=== PATIENT | female | born 1940 | race American Indian/Alaskan Native ===

== ENCOUNTER 2017-10-07 11:03 | Inpatient (IN) | payer MEDICARE ==
[2017-10-07] MEDS ORDERED: D50W (25GM) Syringe IV ONE ×2 (11:18)
[2017-10-07] MEDS ORDERED: NACL 0.9% 500 ML 500 ML IV ONE (12:39)
[2017-10-07 13:28] LABS: INR 3.49 (0.87-1.13)
[2017-10-07 13:29] LABS: Partial Thromboplastin Time 51.7 Sec. (24.2-36.6)
[2017-10-07] MEDS ORDERED: TYLENOL PO ONE (13:32)
[2017-10-07] MEDS ORDERED: LASIX IV ONE (13:32)
[2017-10-07] MEDS ORDERED: NACL 0.9% 1000 ML 1,000 ML ONE (13:44)
[2017-10-07 13:47] LABS: Hematocrit 35.7 % (30.3-42.9); Hemoglobin 11.3 gm/dl (10.1-14.3); Mean Corpuscular HGB Conc 32 % (30-34); Mean Corpuscular Hemoglobin 28 pg (28-32); Mean Corpuscular Volume 88 fl (79-97); Red Blood Count 4.06 M/mm3 (3.65-5.03); Red Cell Distribution Width 16.4 % (13.2-15.2)
[2017-10-07 13:48] LABS: Mean Platelet Volume 7.5 fl (6-12); Platelet Count 164 K/mm3 (140-440)
[2017-10-07 13:57] LABS: Albumin 2.1 g/dL (3.9-5); Calcium 9.5 mg/dL (8.4-10.2)
[2017-10-07 14:08] LABS: Chol/HDL Ratio 2.75 %
[2017-10-07] MEDS ORDERED: LEVAQUIN 500MG/100ML 500 MG/100 ML BAG IV ONE (14:31)
--- NOTE | 2017-10-07 14:32 | Emergency Department Report ---
HPI - General Chief Complaint: Pain General Time Seen by Provider: 10/07/17 12:36 - HPI HPI: The patient is a 77-year-old female with a history of congestive heart failure who presents for evaluation of dyspnea and right shoulder pain. The patient reports dyspnea for the past one day, constant, moderate severity, exacerbated with activity, improved with sitting up. She has secondary complaint of Right shoulder pain for the past 2-3 days, achy in quality, severe, exacerbated with movement of the right arm. She denies trauma to the right shoulder. The patient also denies fever, chest pain, syncope, hemoptysis, unilateral leg swelling, oral contraceptive use, recent immobilization, history of DVT or PE, hx of recent cancer. ED Past Medical Hx - Past Medical History Hx Hypertension: Yes Hx Congestive Heart Failure: Yes Hx Diabetes: Yes Hx GERD: Yes Hx Renal Disease: Yes (acute kidney failure) Hx Asthma: No Hx COPD: No Hx HIV: No Additional medical history: brain tumor (removed 1997). hyperlipidemia. Atrial fibrillation. cardiomyopathy - Surgical History Hx Pacemaker: No (AICD) Hx Internal Defibrillator: Yes Additional Surgical History: AICD (placed 2006, changed 2011) - Social History Smoking Status: Never Smoker Substance Use Type: None - Medications Home Medications: Home Medications Medication Instructions Recorded Confirmed Last Taken Type AtorvaSTATin [Lipitor] 20 mg PO HS tablet 07/01/15 10/07/17 Unknown Rx Furosemide [Lasix TAB] 40 mg PO QDAY tablet 07/01/15 10/07/17 Unknown Rx Spironolactone [Aldactone] 12.5 mg PO QDAY tablet 07/01/15 10/07/17 Unknown Rx amLODIPine [Norvasc] 10 mg PO DAILY tablet 07/01/15 10/07/17 Unknown Rx Amiodarone [Cordarone 200 MG TAB] 200 mg PO DAILY #30 tablet 02/24/16 10/07/17 Unknown Rx Aspirin EC [Aspirin Enteric Coated 325 mg PO QDAY #30 tablet 02/24/16 10/07/17 Unknown Rx TAB] Carvedilol [Coreg] 6.25 mg PO BID #60 tablet 02/24/16 10/07/17 Unknown Rx Insulin Aspart Prot/Aspart(Nf) 6 units SUB-Q BIDDIAB #1 vial 02/24/16 10/07/17 Unknown Rx [NovoLOG Mix 70/30 VIAL] Insulin Aspart [NovoLOG Flexpen] 0 units SQ ACHS 03/09/16 10/07/17 Unknown History Magnesium Oxide [Mag-Ox] 400 mg PO QDAY #10 tablet 03/10/16 10/07/17 Unknown Rx Phosphorus #1 [K-Phos Neutral] 250 mg PO QID #40 tablet 03/10/16 10/07/17 Unknown Rx Digoxin [Lanoxin] 0.125 mg PO DAILY 10/07/17 10/07/17 Unknown History Omeprazole 40 mg PO DAILY 10/07/17 10/07/17 Unknown History Warfarin [Coumadin] 3 mg PO QDAY 10/07/17 10/07/17 Unknown History traMADol [Ultram 50 MG tab] 50 mg PO BID 10/07/17 10/07/17 Unknown History ED Review of Systems ROS: Stated complaint: SHOULDER AND LEG PAIN Other details as noted in HPI Constitutional: denies: fever ENT: denies: throat or neck pain Respiratory: denies: cough reports shortness of breath Cardiovascular: denies: chest pain Endocrine: denies unexplained weight loss or gain Gastrointestinal: denies: abdominal pain, nausea Genitourinary: denies: dysuria Musculoskeletal: denies: leg swelling Skin: denies: rash Neurological: denies: headache Hematological/Lymphatic: denies: easy bleeding or easy bruising Psych: denies sadness or hopelessness Physical Exam - Physical Exam Vital Signs: Vital Signs 10/07/17 10/07/17 10/07/17 11:46 12:00 12:05 Temperature 97.7 F Pulse Rate 60 57 L 55 L Respiratory 20 23 16 Rate Blood Pressure 82/31 83/46 82/31 Blood Pressure 82/31 [Left] O2 Sat by Pulse 94 Oximetry 10/07/17 10/07/17 10/07/17 12:15 12:30 12:46 Temperature Pulse Rate 62 58 L 60 Respiratory 20 22 22 Rate Blood Pressure 93/42 94/45 88/43 Blood Pressure [Left] O2 Sat by Pulse Oximetry 10/07/17 10/07/17 10/07/17 13:00 13:16 13:30 Temperature Pulse Rate 59 L 54 L 66 Respiratory 20 22 24 Rate Blood Pressure 88/43 71/26 142/116 Blood Pressure [Left] O2 Sat by Pulse Oximetry 10/07/17 10/07/17 10/07/17 13:46 14:00 14:08 Temperature Pulse Rate 62 59 L Respiratory 20 23 16 Rate Blood Pressure 81/36 89/46 Blood Pressure [Left] O2 Sat by Pulse Oximetry 10/07/17 14:15 Temperature Pulse Rate 58 L Respiratory 22 Rate Blood Pressure 96/37 Blood Pressure [Left] O2 Sat by Pulse Oximetry Physical Exam: General: well-nourished, well-developed, no acute distress Head: Normocephalic, atraumatic Eyes: normal sclera ENT: Mucous membranes are pink and moist Neck: trachea midline, neck supple, No neck stiffness, no cervical adenopathy Respiratory: Diminished breath sounds and crackles present to palpation along feels Cardio: S1 and S2 present, no murmurs, rubs, gallops, capillary refill is brisk Abdomen: Normoactive bowel sounds, soft abdomen, no rigidity, no guarding or rebound tenderness Chest WALL/Back: No tenderness to palpation of the chest wall, no CVA tenderness with percussion Musc: 1+ pitting edema in the bilateral lower legs present, Right shoulder anterior joint line tenderness to palpation present, no shoulder swelling, redness, fluctuance, or crepitus, sensation, motor function, and pulses intact in the right arm and hand distal to her shoulder Skin: No rash Neuro: no facial drooping, normal speech Psych: Normal affect ED Course Vital Signs 10/07/17 10/07/17 10/07/17 11:46 12:00 12:05 Temperature 97.7 F Pulse Rate 60 57 L 55 L Respiratory 20 23 16 Rate Blood Pressure 82/31 83/46 82/31 Blood Pressure 82/31 [Left] O2 Sat by Pulse 94 Oximetry 10/07/17 10/07/17 10/07/17 12:15 12:30 12:46 Temperature Pulse Rate 62 58 L 60 Respiratory 20 22 22 Rate Blood Pressure 93/42 94/45 88/43 Blood Pressure [Left] O2 Sat by Pulse Oximetry 10/07/17 10/07/17 10/07/17 13:00 13:16 13:30 Temperature Pulse Rate 59 L 54 L 66 Respiratory 20 22 24 Rate Blood Pressure 88/43 71/26 142/116 Blood Pressure [Left] O2 Sat by Pulse Oximetry 10/07/17 10/07/17 10/07/17 13:46 14:00 14:08 Temperature Pulse Rate 62 59 L Respiratory 20 23 16 Rate Blood Pressure 81/36 89/46 Blood Pressure [Left] O2 Sat by Pulse Oximetry 10/07/17 14:15 Temperature Pulse Rate 58 L Respiratory 22 Rate Blood Pressure 96/37 Blood Pressure [Left] O2 Sat by Pulse Oximetry ED Medical Decision Making - Lab Data Result diagrams: 10/07/17 13:03 10/07/17 13:03 - Medical Decision Making The patient was seen and examined by myself. The patient is placed on a surveillance system monitor and continuous pulse ox. On initial evaluation, the patient was found to be in no distress. Evaluation orders were placed. The patient is given Tylenol for her pain. X-ray of the chest reveals cardiomegaly, pulmonary vascular congestion, and right linear atelectasis versus infiltrate. X-ray of the right shoulder is unremarkable. Lab results revealed mild leukocytosis, WBC 11, and elevated BNP 91716, and elevated creatinine >2. Labs also revealed elevated troponin level, although and patient baseline compared to troponin levels on multiple previous ED evaluations. The patient is given Levaquin for treatment of potential pneumonia. An ABG is performed and reveals that the patient's PaO2 60. The on-call hospitalist service was contacted. They agreed to admit the patient for further treatment and close monitoring. The ED admit order was placed. The patient was admitted in guarded condition. Critical care attestation.: If time is entered above; I have spent that time in minutes in the direct care of this critically ill patient, excluding procedure time. ED Disposition Clinical Impression: Acute pain of right shoulder, SUNDAR (acute kidney injury), Elevated troponin, Hypoxemia Pneumonia Qualifiers: Pneumonia type: due to unspecified organism Laterality: right Lung location: lower lobe of lung Qualified Code(s): J18.1 - Lobar pneumonia, unspecified organism Acute CHF (congestive heart failure) Qualifiers: Heart failure type: systolic Qualified Code(s): I50.21 - Acute systolic ( congestive) heart failure Hypotension Qualifiers: Hypotension type: unspecified hypotension type Qualified Code(s): I95.9 - Hypotension, unspecified Disposition: OP ADMIT IP TO THIS HOSP Is pt being admited?: Yes Does the pt Need Aspirin: Yes Condition: Serious Instructions: Bacterial Pneumonia (ED) Referrals: ARUN HAMMOND MD [Primary Care Provider] - 3-5 Days Time of Disposition: :32
[2017-10-07] MEDS ORDERED: BABY ASPIRIN PO ONE (14:35)
[2017-10-07 14:50] LABS: Bacteria,Urine 4+ /HPF (Negative); Bilirubin,Urine NEG (Negative); Blood,Urine NEG (Negative); Color,Urine Amber (Yellow); Mucus,Urine 1+ /HPF
[2017-10-07 15:24] LABS: Band Neutrophils # (Manual) 1.1 K/mm3; Basophils % (Manual) 0 % (0.0-1.8); Eosinophils % (Manual) 0 % (0.0-4.3); Total Cells Counted 100
[2017-10-07 15:25] LABS: Anisocytosis 1+; Ovalocytes 1+; Poikilocytosis 1+
[2017-10-07 15:26] LABS: Dohle Bodies 1+; Toxic Granulation 1+
--- NOTE | 2017-10-07 15:31 | XRay Report ---
FINAL REPORT EXAM: XR SHOULDER 2+V RT HISTORY: right shoulder pain TECHNIQUE: Right shoulder three views PRIORS: None. FINDINGS: There is bony irregularity and degenerative cyst formation in the greater tuberosity region. This may reflect associated rotator cuff disease. There is no fracture. There is no dislocation. IMPRESSION: There are prominent degenerative changes of the greater tuberosity. This is concerning for associated rotator cuff disease.
--- NOTE | 2017-10-07 21:33 | History and Physical Report ---
History of Present Illness Date of examination: 10/07/17 Date of admission: 10/07/17 14:38 Chief complaint: CC Increasing SOB 1 day History of present illness: [place]: The patient is a 77-year-old female with a history of congestive heart failure who presents for evaluation of dyspnea and right shoulder pain. The patient reports dyspnea for the past one day, constant, moderate severity, exacerbated with activity, improved with sitting up. She has secondary complaint of Right shoulder pain for the past 2-3 days, achy in quality, severe, exacerbated with movement of the right arm. She denies trauma to the right shoulder. The patient also denies fever, chest pain, syncope, hemoptysis, unilateral leg swelling, oral contraceptive use, recent immobilization, history of DVT or PE, hx of recent cancer. Past Medical History Hx Hypertension: Yes Hx Congestive Heart Failure: Yes Hx Diabetes: Yes Hx GERD: Yes Hx Renal Disease: Yes (acute kidney failure Additional medical history: brain tumor (removed 1997). hyperlipidemia. Atrial fibrillation. cardiomyopathy Surgical History x Hx Pacemaker: No (AICD) Hx Internal Defibrillator: Yes Additional Surgical History: AICD (placed 2006, changed 2011) Fam Hx Htn Social History Smoking Status: Never Smoker Substance Use Type: None -Medications Home Medications: Home Medications Medication Instructions Recorded Confirmed Last Taken Type AtorvaSTATin [Lipitor] 20 mg PO HS tablet 07/01/15 10/07/17 Unknown Rx Furosemide [Lasix TAB] 40 mg PO QDAY tablet 07/01/15 10/07/17 Unknown Rx Spironolactone [Aldactone] 12.5 mg PO QDAY tablet 07/01/15 10/07/17 Unknown Rx amLODIPine [Norvasc] 10 mg PO DAILY tablet 07/01/15 10/07/17 Unknown Rx Amiodarone [Cordarone 200 MG TAB] 200 mg PO DAILY #30 tablet 02/24/16 10/07/17 Unknown Rx Aspirin EC [Aspirin Enteric Coated 325 mg PO QDAY #30 tablet 02/24/16 10/07/17 Unknown Rx TAB] Carvedilol [Coreg] 6.25 mg PO BID #60 tablet 02/24/16 10/07/17 Unknown Rx Insulin Aspart Prot/Aspart(Nf) 6 units SUB-Q BIDDIAB #1 vial 02/24/16 10/07/17 Unknown Rx [NovoLOG Mix 70/30 VIAL] Insulin Aspart [NovoLOG Flexpen] 0 units SQ ACHS 03/09/16 10/07/17 Unknown History Magnesium Oxide [Mag-Ox] 400 mg PO QDAY #10 tablet 03/10/16 10/07/17 Unknown Rx Phosphorus #1 [K-Phos Neutral] 250 mg PO QID #40 tablet 03/10/16 10/07/17 Unknown Rx Digoxin [Lanoxin] 0.125 mg PO DAILY 10/07/17 10/07/17 Unknown History Omeprazole 40 mg PO DAILY 10/07/17 10/07/17 Unknown History Warfarin [Coumadin] 3 mg PO QDAY 10/07/17 10/07/17 Unknown History traMADol [Ultram 50 MG tab] 50 mg PO BID 10/07/17 10/07/17 Unknown History Review of Systems ROS: Stated complaint: SHOULDER AND LEG PAIN Other details as noted in HPI Constitutional: denies: fever ENT: denies: throat or neck pain Respiratory: denies: cough reports shortness of breath Cardiovascular: denies: chest pain Endocrine: denies unexplained weight loss or gain Gastrointestinal: denies: abdominal pain, nausea Genitourinary: denies: dysuria Musculoskeletal: denies: leg swelling Skin: denies: rash Neurological: denies: headache Hematological/Lymphatic: denies: easy bleeding or easy bruising Psych: denies sadness or hopelessness Medications and Allergies Allergies Allergy/AdvReac Type Severity Reaction Status Date / Time codeine Allergy Unknown Verified 10/07/17 12:08 Home Medications Medication Instructions Recorded Confirmed Last Taken Type AtorvaSTATin [Lipitor] 20 mg PO HS tablet 07/01/15 10/07/17 Unknown Rx Furosemide [Lasix TAB] 40 mg PO QDAY tablet 07/01/15 10/07/17 Unknown Rx Spironolactone [Aldactone] 12.5 mg PO QDAY tablet 07/01/15 10/07/17 Unknown Rx amLODIPine [Norvasc] 10 mg PO DAILY tablet 07/01/15 10/07/17 Unknown Rx Amiodarone [Cordarone 200 MG TAB] 200 mg PO DAILY #30 tablet 02/24/16 10/07/17 Unknown Rx Aspirin EC [Aspirin Enteric Coated 325 mg PO QDAY #30 tablet 02/24/16 10/07/17 Unknown Rx TAB] Carvedilol [Coreg] 6.25 mg PO BID #60 tablet 02/24/16 10/07/17 Unknown Rx Insulin Aspart Prot/Aspart(Nf) 6 units SUB-Q BIDDIAB #1 vial 02/24/16 10/07/17 Unknown Rx [NovoLOG Mix 70/30 VIAL] Insulin Aspart [NovoLOG Flexpen] 0 units SQ ACHS 03/09/16 10/07/17 Unknown History Magnesium Oxide [Mag-Ox] 400 mg PO QDAY #10 tablet 03/10/16 10/07/17 Unknown Rx Phosphorus #1 [K-Phos Neutral] 250 mg PO QID #40 tablet 03/10/16 10/07/17 Unknown Rx Digoxin [Lanoxin] 0.125 mg PO DAILY 10/07/17 10/07/17 Unknown History Omeprazole 40 mg PO DAILY 10/07/17 10/07/17 Unknown History Warfarin [Coumadin] 3 mg PO QDAY 10/07/17 10/07/17 Unknown History traMADol [Ultram 50 MG tab] 50 mg PO BID 10/07/17 10/07/17 Unknown History Exam - Constitutional Vitals: Temp Pulse Resp BP Pulse Ox 98.3 F 58 L 18 90/38 94 10/07/17 20:42 10/07/17 20:42 10/07/17 20:42 10/07/17 20:42 10/07/17 12:30 General appearance: Present: mild distress, well-nourished - EENT Eyes: Present: PERRL ENT: hearing intact, clear oral mucosa - Neck Neck: Present: supple, normal ROM - Respiratory Respiratory effort: normal Respiratory: bilateral: CTA - Cardiovascular Heart rate: 80 Rhythm: irregularly irregular Heart Sounds: Present: S1 & S2. Absent: rub, click - Extremities Extremities: no ischemia, pulses symmetrical, No edema, abnormal ( Hyperpigmentation both legs) Peripheral Pulses: within normal limits - Abdominal General gastrointestinal: Present: soft, non-tender, non-distended, normal bowel sounds Female genitourinary: Present: normal - Integumentary Integumentary: Present: clear, warm, dry - Musculoskeletal Musculoskeletal: gait normal, strength equal bilaterally - Psychiatric Psychiatric: appropriate mood/affect, intact judgment & insight - Neurologic Neurologic: CNII-XII intact, moves all extremities Results - Labs CBC & Chem 7: 10/07/17 13:03 10/07/17 13:03 Labs: Laboratory Last Values WBC 3.7 K/mm3 (4.5-11.0) L 10/07/17 13:03 RBC 4.06 M/mm3 (3.65-5.03) 10/07/17 13:03 Hgb 11.3 gm/dl (10.1-14.3) 10/07/17 13:03 Hct 35.7 % (30.3-42.9) 10/07/17 13:03 MCV 88 fl (79-97) 10/07/17 13:03 MCH 28 pg (28-32) 10/07/17 13:03 MCHC 32 % (30-34) 10/07/17 13:03 RDW 16.4 % (13.2-15.2) H 10/07/17 13:03 Plt Count 164 K/mm3 (140-440) 10/07/17 13:03 Add Manual Diff Complete 10/07/17 13:03 Total Counted 100 10/07/17 13:03 Seg Neuts % (Manual) 42.0 % (40.0-70.0) 10/07/17 13:03 Band Neutrophils % 31.0 % 10/07/17 13:03 Lymphocytes % (Manual) 11.0 % (13.4-35.0) L 10/07/17 13:03 Reactive Lymphs % (Man) 0 % 10/07/17 13:03 Monocytes % (Manual) 14.0 % (0.0-7.3) H 10/07/17 13:03 Eosinophils % (Manual) 0 % (0.0-4.3) 10/07/17 13:03 Basophils % (Manual) 0 % (0.0-1.8) 10/07/17 13:03 Metamyelocytes % 2.0 % 10/07/17 13:03 Myelocytes % 0 % 10/07/17 13:03 Promyelocytes % 0 % 10/07/17 13:03 Blast Cells % 0 % 10/07/17 13:03 Nucleated RBC % Not Reportable 10/07/17 13:03 Seg Neutrophils # Man 1.6 K/mm3 (1.8-7.7) L 10/07/17 13:03 Band Neutrophils # 1.1 K/mm3 10/07/17 13:03 Lymphocytes # (Manual) 0.4 K/mm3 (1.2-5.4) L 10/07/17 13:03 Abs React Lymphs (Man) 0.0 K/mm3 10/07/17 13:03 Monocytes # (Manual) 0.5 K/mm3 (0.0-0.8) 10/07/17 13:03 Eosinophils # (Manual) 0.0 K/mm3 (0.0-0.4) 10/07/17 13:03 Basophils # (Manual) 0.0 K/mm3 (0.0-0.1) 10/07/17 13:03 Metamyelocytes # 0.1 K/mm3 10/07/17 13:03 Myelocytes # 0.0 K/mm3 10/07/17 13:03 Promyelocytes # 0.0 K/mm3 10/07/17 13:03 Blast Cells # 0.0 K/mm3 10/07/17 13:03 WBC Morphology Not Reportable 10/07/17 13:03 Hypersegmented Neuts Not Reportable 10/07/17 13:03 Hyposegmented Neuts Not Reportable 10/07/17 13:03 Hypogranular Neuts Not Reportable 10/07/17 13:03 Smudge Cells Not Reportable 10/07/17 13:03 Toxic Granulation 1+ 10/07/17 13:03 Toxic Vacuolation Not Reportable 10/07/17 13:03 Dohle Bodies 1+ 10/07/17 13:03 Pelger-Huet Anomaly Not Reportable 10/07/17 13:03 Bennie Rods Not Reportable 10/07/17 13:03 Platelet Estimate Appears normal 10/07/17 13:03 Clumped Platelets Not Reportable 10/07/17 13:03 Plt Clumps, EDTA Not Reportable 10/07/17 13:03 Large Platelets Not Reportable 10/07/17 13:03 Giant Platelets Not Reportable 10/07/17 13:03 Platelet Satelliting Not Reportable 10/07/17 13:03 Plt Morphology Comment Not Reportable 10/07/17 13:03 RBC Morphology Not Reportable 10/07/17 13:03 Dimorphic RBCs Not Reportable 10/07/17 13:03 Polychromasia Not Reportable 10/07/17 13:03 Hypochromasia Not Reportable 10/07/17 13:03 Poikilocytosis 1+ 05/12/18 13:03 Anisocytosis 1+ 10/07/17 13:03 Microcytosis Not Reportable 10/07/17 13:03 Macrocytosis Not Reportable 10/07/17 13:03 Spherocytes Not Reportable 10/07/17 13:03 Pappenheimer Bodies Not Reportable 10/07/17 13:03 Sickle Cells Not Reportable 10/07/17 13:03 Target Cells Not Reportable 10/07/17 13:03 Tear Drop Cells Not Reportable 10/07/17 13:03 Ovalocytes 1+ 10/07/17 13:03 Helmet Cells Not Reportable 10/07/17 13:03 Lambert-Rye Bodies Not Reportable 10/07/17 13:03 [place] Rings Not Reportable 10/07/17 13:03 [place]no Cells Not Reportable 10/07/17 13:03 Bite Cells Not Reportable 10/07/17 13:03 Crenated Cell Not Reportable 10/07/17 13:03 Elliptocytes Not Reportable 10/07/17 13:03 Acanthocytes (Spur) Not Reportable 10/07/17 13:03 Rouleaux Not Reportable 10/07/17 13:03 Hemoglobin C Crystals Not Reportable 10/07/17 13:03 Schistocytes Not Reportable 10/07/17 13:03 Malaria parasites Not Reportable 10/07/17 13:03 Earl Bodies Not Reportable 10/07/17 13:03 Hem Pathologist Commnt No 10/07/17 13:03 PT 37.5 Sec. (12.2-14.9) H 10/07/17 13:03 INR 3.49 (0.87-1.13) H 10/07/17 13:03 APTT 51.7 Sec. (24.2-36.6) H 10/07/17 13:03 POC ABG pH 7.345 (7.35-7.45) L 10/07/17 14:23 POC ABG pCO2 34.9 (35-45) L 10/07/17 14:23 POC ABG pO2 61 (80-105) L 10/07/17 14:23 POC ABG HCO3 19.1 10/07/17 14:23 POC ABG Total CO2 20 10/07/17 14:23 POC ABG O2 Sat 90 05/12/18 14:23 POC ABG Base Excess -7 10/07/17 14:23 FiO2 21 % 10/07/17 14:23 Sodium 137 mmol/L (137-145) 10/07/17 13:03 Potassium 4.8 mmol/L (3.6-5.0) 10/07/17 13:03 Chloride 102.2 mmol/L (98-107) 10/07/17 13:03 Carbon Dioxide 21 mmol/L (22-30) L 10/07/17 13:03 Anion Gap 19 mmol/L 10/07/17 13:03 BUN 58 mg/dL (7-17) H 10/07/17 13:03 Creatinine 2.6 mg/dL (0.7-1.2) H 10/07/17 13:03 Estimated GFR 22 ml/min 10/07/17 13:03 BUN/Creatinine Ratio 22 % 10/07/17 13:03 Glucose 134 mg/dL (65-100) H 10/07/17 13:03 POC Glucose 75 (70-105) 10/07/17 20:27 Lactic Acid 2.20 mmol/L (0.7-2.0) H* 10/07/17 15:54 Calcium 9.5 mg/dL (8.4-10.2) 10/07/17 13:03 Total Bilirubin 0.70 mg/dL (0.1-1.2) 10/07/17 13:03 AST 17 units/L (5-40) 10/07/17 13:03 ALT 11 units/L (7-56) 10/07/17 13:03 Alkaline Phosphatase 80 units/L (35-129) 10/07/17 13:03 Troponin T 0.062 ng/mL (0.00-0.029) H 10/07/17 13:03 NT-Pro-B Natriuret Pep 60290 pg/mL (0-900) H 10/07/17 13:03 Total Protein 5.7 g/dL (6.3-8.2) L 10/07/17 13:03 Albumin 2.1 g/dL (3.9-5) L 10/07/17 13:03 Albumin/Globulin Ratio 0.6 % 10/07/17 13:03 Triglycerides 69 mg/dL (2-149) 10/07/17 13:03 Cholesterol 80 mg/dL (50-199) 10/07/17 13:03 LDL Cholesterol Direct 23 mg/dL (50-130) L 10/07/17 13:03 HDL Cholesterol 29 mg/dL (40-59) L 10/07/17 13:03 Cholesterol/HDL Ratio 2.75 % 10/07/17 13:03 Urine Color Astrid (Yellow) 10/07/17 14:36 Urine Turbidity Clear (Clear) 10/07/17 14:36 Urine pH 5.0 (5.0-7.0) 10/07/17 14:36 Ur Specific [place] 1.020 (1.003-1.030) 10/07/17 14:36 Urine Protein 30 mg/dl mg/dL (Negative) 10/07/17 14:36 Urine Glucose (UA) Neg mg/dL (Negative) 10/07/17 14:36 Urine Ketones Neg mg/dL (Negative) 10/07/17 14:36 Urine Blood Neg (Negative) 10/07/17 14:36 Urine Nitrite Neg (Negative) 10/07/17 14:36 Urine Bilirubin Neg (Negative) 10/07/17 14:36 Urine Urobilinogen 4.0 mg/dL (<2.0) 10/07/17 14:36 Ur Leukocyte Esterase Tr (Negative) 10/07/17 14:36 Urine WBC (Auto) 6.0 /HPF (0.0-6.0) 10/07/17 14:36 Urine RBC (Auto) 3.0 /HPF (0.0-6.0) 10/07/17 14:36 U Epithel Cells (Auto) 1.0 /HPF (0-13.0) 10/07/17 14:36 Urine Bacteria (Auto) 4+ /HPF (Negative) 10/07/17 14:36 Urine WBC Clumps 2+ /HPF 10/07/17 14:36 Urine Mucus 1+ /HPF 10/07/17 14:36 Urine Yeast (Budding) 1+ /HPF 10/07/17 14:36 Short CBC 10/07/17 Range/Units 13:03 WBC 3.7 L (4.5-11.0) K/mm3 Hgb 11.3 (10.1-14.3) gm/dl Hct 35.7 (30.3-42.9) % Plt Count 164 (140-440) K/mm3 BMP 10/07/17 13:03 Sodium 137 Potassium 4.8 Chloride 102.2 Carbon Dioxide 21 L BUN 58 H Creatinine 2.6 H Glucose 134 H Calcium 9.5 Cardiac Enzymes 10/07/17 Range/Units 13:03 Troponin T 0.062 H (0.00-0.029) ng/mL Liver Function 10/07/17 Range/Units 13:03 Total Bilirubin 0.70 (0.1-1.2) mg/dL AST 17 (5-40) units/L ALT 11 (7-56) units/L Alkaline Phosphatase 80 (35-129) units/L Albumin 2.1 L (3.9-5) g/dL Urine 10/07/17 Range/Units 14:36 Urine Color Astrid (Yellow) Urine pH 5.0 (5.0-7.0) Ur Specific [place] 1.020 (1.003-1.030) Urine Protein 30 mg/dl (Negative) mg/dL Urine Glucose (UA) Neg (Negative) mg/dL - Imaging and Cardiology EKG: report reviewed Chest x-ray: report reviewed Imaging and Cardiology: RT Shoulder xray FINDINGS: There is bony irregularity and degenerative cyst formation in the greater tuberosity region. This may reflect associated rotator cuff disease. There is no fracture. There is no dislocation. IMPRESSION: There are prominent degenerative changes of the greater tuberosity. This is concerning for associated rotator cuff disease. Assessment and Plan Advance Directives: Yes (FC) VTE prophylaxis?: Chemical Plan of care discussed with patient/family: Yes - Patient Problems (1) Acute exacerbation of CHF (congestive heart failure) Current Visit: Yes Status: Acute Qualifiers: Heart failure type: diastolic Qualified Code(s): I50.33 - Acute on chronic diastolic (congestive) heart failure Plan to address problem: IV Lasix for now Echo Card consult Daily weight Daily I and O's (2) SUNDAR (acute kidney injury) Current Visit: Yes Status: Acute Plan to address problem: Nephrology consult (3) Atrial fibrillation with controlled ventricular response Current Visit: No Status: Chronic Plan to address problem: Cont Coumadin (4) Hypertension Current Visit: No Status: Chronic Qualifiers: Hypertension type: essential hypertension Qualified Code(s): I10 - Essential (primary) hypertension Plan to address problem: Cont antihypertensives (5) IDDM (insulin dependent diabetes mellitus) Current Visit: Yes Status: Chronic Plan to address problem: Cont Insulin and coverage Check A1c (6) HLD (hyperlipidemia) Current Visit: Yes Status: Chronic Qualifiers: Hyperlipidemia type: mixed hyperlipidemia Qualified Code(s): E78.2 - Mixed hyperlipidemia Plan to address problem: Cont statins (7) DVT prophylaxis Current Visit: Yes Status: Acute Plan to address problem: On Heparin
[2017-10-07] MEDS ORDERED: ZOFRAN IV PRN (21:40)
[2017-10-07] MEDS ORDERED: MORPHINE IV PRN (21:40)
[2017-10-07] MEDS ORDERED: PERCOCET 5/325 PO PRN (21:40)
[2017-10-07] MEDS ORDERED: SODIUM CHLORIDE FLUSH SYRINGE 10 ML IV PRN (21:40)
[2017-10-07] MEDS ORDERED: TYLENOL PO PRN (21:40)
[2017-10-07] MEDS ORDERED: LASIX PO SCH (22:00)
[2017-10-07] MEDS ORDERED: NON-FORMULARY (Insulin Aspart [Novolog Flexpen] 6 UNITS) SQ SCH (22:00)
[2017-10-07] MEDS: LANOXIN PO SCH ×2 (23:24→23:43)
[2017-10-07] MEDS: MAG-OX PO SCH (23:25)
[2017-10-07] MEDS: NORVASC PO SCH (23:25)
[2017-10-07] MEDS: ULTRAM PO SCH (23:25)
[2017-10-07] MEDS: SODIUM CHLORIDE FLUSH SYRINGE 10 ML IV SCH (23:26)
[2017-10-07] MEDS: HumaLOG SUB-Q SCH ×2 (23:27)
[2017-10-07] MEDS: K-PHOS NEUTRAL PO SCH (23:27)
[2017-10-07] MEDS: K-DUR PO SCH (23:27)
[2017-10-07] MEDS: COREG PO SCH (23:28)
[2017-10-07] MEDS: CORDARONE PO SCH (23:28)
[2017-10-08] MEDS: LASIX IV SCH ×2 (06:20→18:29)
[2017-10-08] MEDS ORDERED: ASPART SUB-Q SCH (08:00)
[2017-10-08] MEDS ORDERED: INSULIN ASPART PROT SUB-Q SCH (08:00)
[2017-10-08] MEDS: HumaLOG SUB-Q SCH ×8 (08:50→21:33)
[2017-10-08 09:11] LABS: Hematocrit 33.2 % (30.3-42.9); Hemoglobin 11.1 gm/dl (10.1-14.3); Mean Corpuscular HGB Conc 33 % (30-34); Mean Corpuscular Hemoglobin 29 pg (28-32); Mean Corpuscular Volume 86 fl (79-97); Platelet Count 157 K/mm3 (140-440); Red Blood Count 3.87 M/mm3 (3.65-5.03); Red Cell Distribution Width 16.8 % (13.2-15.2)
[2017-10-08 09:14] LABS: INR 4.97 (0.87-1.13)
[2017-10-08 09:23] LABS: Albumin 1.7 g/dL (3.9-5); Calcium 9.5 mg/dL (8.4-10.2); Creatine Kinase MB 3.1 ng/mL (0.0-4.0)
[2017-10-08] MEDS: COREG PO SCH (10:00)
[2017-10-08] MEDS ORDERED: NON-FORMULARY (Omeprazole [Omeprazole] 40 MG) PO SCH (10:00)
[2017-10-08] MEDS ORDERED: COUMADIN PO SCH ×2 (10:00→17:00)
[2017-10-08] MEDS: K-DUR PO SCH (10:00)
[2017-10-08] MEDS: NORVASC PO SCH (10:00)
[2017-10-08] MEDS: K-PHOS NEUTRAL PO SCH (10:00)
[2017-10-08] MEDS ORDERED: ALDACTONE PO SCH (10:00)
--- NOTE | 2017-10-08 10:06 | XRay Report ---
PORTABLE CHEST INDICATION: Chest pain. COMPARISON: 06/24/2017 FINDINGS: Portable, frontal chest radiograph suggests mild to moderate cardiomegaly. Stable aortic knob calcifications and partially imaged left chest wall AICD with single ventricular lead. Mild bibasilar atelectasis again noted with slight variation. No large pleural effusions or CHF. EKG leads. Intact bones. CONCLUSION: Mild bibasilar atelectasis, cardiomegaly and left AICD again noted, as described. Thank you for the opportunity to participate in this patient's care.
--- NOTE | 2017-10-08 10:20 | Progress Note ---
Assessment and Plan Assessment and plan: Acute on chronic systolic CHF. Admitted to Telemetry lasix iv. Coreg, on hold for now because of low BP. Will resume when Diabetes mellitus Type 2. Fingerstick glucose QAC AND hs Hypotension. Will hold Coreg, Norvasc. Acute Kidney Injury. Nephrology consulted Atrial fibrillation with controlled ventricular response, On Coumadin. Hold Coumadin for now because INR DVT prophylaxis. On Coumadin Full code status. History Interval history: Shortness of breath, No chest pain Hospitalist Physical - Physical exam Narrative exam: General:Not in acute distress, lying in bed, HEENT:Normocephalic, atraumatic Neck:supple,no JVD Lungs: Clear to auscultation, no rales, no wheeze Heart:S1 and S2 regular, no murmurs, rubs or gallop Abd: soft, non tender,non distended, normal bowel sounds Ext: Bilateral lower extremity edema, large blisters both lower ext, no clubbing or cyanosis Neuro:Awake,alert,, moves all extremities, Skin:dark pigmentation, blisters - Constitutional Vitals: Temp Pulse Resp BP Pulse Ox 98.0 F 65 20 87/47 97 10/08/17 07:20 10/08/17 07:20 10/08/17 07:20 10/08/17 07:20 10/08/17 07:20 General appearance: Present: well-nourished Results - Labs CBC & Chem 7: 10/08/17 08:37 10/08/17 08:37 Labs: Laboratory Last Values WBC 3.3 K/mm3 (4.5-11.0) L 10/08/17 08:37 RBC 3.87 M/mm3 (3.65-5.03) 10/08/17 08:37 Hgb 11.1 gm/dl (10.1-14.3) 10/08/17 08:37 Hct 33.2 % (30.3-42.9) 10/08/17 08:37 MCV 86 fl (79-97) 10/08/17 08:37 MCH 29 pg (28-32) 10/08/17 08:37 MCHC 33 % (30-34) 10/08/17 08:37 RDW 16.8 % (13.2-15.2) H 10/08/17 08:37 Plt Count 157 K/mm3 (140-440) 10/08/17 08:37 Add Manual Diff Complete 10/07/17 13:03 Total Counted 100 10/07/17 13:03 Seg Neuts % (Manual) 42.0 % (40.0-70.0) 10/07/17 13:03 Band Neutrophils % 31.0 % 10/07/17 13:03 Lymphocytes % (Manual) 11.0 % (13.4-35.0) L 10/07/17 13:03 Reactive Lymphs % (Man) 0 % 10/07/17 13:03 Monocytes % (Manual) 14.0 % (0.0-7.3) H 10/07/17 13:03 Eosinophils % (Manual) 0 % (0.0-4.3) 10/07/17 13:03 Basophils % (Manual) 0 % (0.0-1.8) 10/07/17 13:03 Metamyelocytes % 2.0 % 10/07/17 13:03 Myelocytes % 0 % 10/07/17 13:03 Promyelocytes % 0 % 10/07/17 13:03 Blast Cells % 0 % 10/07/17 13:03 Nucleated RBC % Not Reportable 10/07/17 13:03 Seg Neutrophils # Man 1.6 K/mm3 (1.8-7.7) L 10/07/17 13:03 Band Neutrophils # 1.1 K/mm3 10/07/17 13:03 Lymphocytes # (Manual) 0.4 K/mm3 (1.2-5.4) L 10/07/17 13:03 Abs React Lymphs (Man) 0.0 K/mm3 10/07/17 13:03 Monocytes # (Manual) 0.5 K/mm3 (0.0-0.8) 10/07/17 13:03 Eosinophils # (Manual) 0.0 K/mm3 (0.0-0.4) 10/07/17 13:03 Basophils # (Manual) 0.0 K/mm3 (0.0-0.1) 10/07/17 13:03 Metamyelocytes # 0.1 K/mm3 10/07/17 13:03 Myelocytes # 0.0 K/mm3 10/07/17 13:03 Promyelocytes # 0.0 K/mm3 10/07/17 13:03 Blast Cells # 0.0 K/mm3 10/07/17 13:03 WBC Morphology Not Reportable 10/07/17 13:03 Hypersegmented Neuts Not Reportable 10/07/17 13:03 Hyposegmented Neuts Not Reportable 10/07/17 13:03 Hypogranular Neuts Not Reportable 10/07/17 13:03 Smudge Cells Not Reportable 10/07/17 13:03 Toxic Granulation 1+ 10/07/17 13:03 Toxic Vacuolation Not Reportable 10/07/17 13:03 Dohle Bodies 1+ 10/07/17 13:03 Pelger-Huet Anomaly Not Reportable 10/07/17 13:03 Bennie Rods Not Reportable 10/07/17 13:03 Platelet Estimate Appears normal 10/07/17 13:03 Clumped Platelets Not Reportable 10/07/17 13:03 Plt Clumps, EDTA Not Reportable 10/07/17 13:03 Large Platelets Not Reportable 10/07/17 13:03 Giant Platelets Not Reportable 10/07/17 13:03 Platelet Satelliting Not Reportable 10/07/17 13:03 Plt Morphology Comment Not Reportable 10/07/17 13:03 RBC Morphology Not Reportable 10/07/17 13:03 Dimorphic RBCs Not Reportable 10/07/17 13:03 Polychromasia Not Reportable 10/07/17 13:03 Hypochromasia Not Reportable 10/07/17 13:03 Poikilocytosis 1+ 10/07/17 13:03 Anisocytosis 1+ 10/07/17 13:03 Microcytosis Not Reportable 10/07/17 13:03 Macrocytosis Not Reportable 10/07/17 13:03 Spherocytes Not Reportable 10/07/17 13:03 Pappenheimer Bodies Not Reportable 10/07/17 13:03 Sickle Cells Not Reportable 10/07/17 13:03 Target Cells Not Reportable 10/07/17 13:03 Tear Drop Cells Not Reportable 10/07/17 13:03 Ovalocytes 1+ 10/07/17 13:03 Helmet Cells Not Reportable 10/07/17 13:03 [place] Bodies Not Reportable 10/07/17 13:03 [place] Rings Not Reportable 10/07/17 13:03 Francisca Cells Not Reportable 10/07/17 13:03 Bite Cells Not Reportable 10/07/17 13:03 Crenated Cell Not Reportable 10/07/17 13:03 Elliptocytes Not Reportable 10/07/17 13:03 Acanthocytes (Spur) Not Reportable 10/07/17 13:03 Rouleaux Not Reportable 10/07/17 13:03 Hemoglobin C Crystals Not Reportable 10/07/17 13:03 Schistocytes Not Reportable 10/07/17 13:03 Malaria parasites Not Reportable 10/07/17 13:03 Earl Bodies Not Reportable 10/07/17 13:03 Hem Pathologist Commnt No 10/07/17 13:03 PT 49.9 Sec. (12.2-14.9) H 10/08/17 08:37 INR 4.97 (0.87-1.13) H 10/08/17 08:37 APTT 51.7 Sec. (24.2-36.6) H 10/07/17 13:03 POC ABG pH 7.345 (7.35-7.45) L 10/07/17 14:23 POC ABG pCO2 34.9 (35-45) L 10/07/17 14:23 POC ABG pO2 61 (80-105) L 10/07/17 14:23 POC ABG HCO3 19.1 10/07/17 14:23 POC ABG Total CO2 20 10/07/17 14:23 POC ABG O2 Sat 90 10/07/17 14:23 POC ABG Base Excess -7 10/07/17 14:23 FiO2 21 % 10/07/17 14:23 Sodium 134 mmol/L (137-145) L 10/08/17 08:37 Potassium 5.4 mmol/L (3.6-5.0) H 10/08/17 08:37 Chloride 101.4 mmol/L (98-107) 10/08/17 08:37 Carbon Dioxide 21 mmol/L (22-30) L 10/08/17 08:37 Anion Gap 17 mmol/L 10/08/17 08:37 BUN 69 mg/dL (7-17) H 10/08/17 08:37 Creatinine 2.5 mg/dL (0.7-1.2) H 10/08/17 08:37 Estimated GFR 23 ml/min 10/08/17 08:37 BUN/Creatinine Ratio 28 % 10/08/17 08:37 Glucose 109 mg/dL (65-100) H 10/08/17 08:37 POC Glucose 65 (70-105) L 10/08/17 06:45 Hemoglobin A1c 6.6 % (4-6) H 10/07/17 13:03 Lactic Acid 2.20 mmol/L (0.7-2.0) H* 10/07/17 15:54 Calcium 9.5 mg/dL (8.4-10.2) 10/08/17 08:37 Total Bilirubin 0.70 mg/dL (0.1-1.2) 10/08/17 08:37 AST 20 units/L (5-40) 10/08/17 08:37 ALT 12 units/L (7-56) 10/08/17 08:37 Alkaline Phosphatase 73 units/L (35-129) 10/08/17 08:37 Total Creatine Kinase 182 units/L (30-135) H 10/08/17 08:37 CK-MB (CK-2) 3.1 ng/mL (0.0-4.0) 10/08/17 08:37 CK-MB (CK-2) Rel Index 1.7 (0-4) 10/08/17 08:37 Troponin T 0.058 ng/mL (0.00-0.029) H 10/08/17 08:37 NT-Pro-B Natriuret Pep 03602 pg/mL (0-900) H 10/07/17 13:03 Total Protein 5.6 g/dL (6.3-8.2) L 10/08/17 08:37 Albumin 1.7 g/dL (3.9-5) L 10/08/17 08:37 Albumin/Globulin Ratio 0.4 % 10/08/17 08:37 Triglycerides 69 mg/dL (2-149) 10/07/17 13:03 Cholesterol 80 mg/dL (50-199) 10/07/17 13:03 LDL Cholesterol Direct 23 mg/dL (50-130) L 10/07/17 13:03 HDL Cholesterol 29 mg/dL (40-59) L 10/07/17 13:03 Cholesterol/HDL Ratio 2.75 % 10/07/17 13:03 Urine Color Astrid (Yellow) 10/07/17 14:36 Urine Turbidity Clear (Clear) 10/07/17 14:36 Urine pH 5.0 (5.0-7.0) 10/07/17 14:36 Ur Specific [place] 1.020 (1.003-1.030) 10/07/17 14:36 Urine Protein 30 mg/dl mg/dL (Negative) 10/07/17 14:36 Urine Glucose (UA) Neg mg/dL (Negative) 10/07/17 14:36 Urine Ketones Neg mg/dL (Negative) 10/07/17 14:36 Urine Blood Neg (Negative) 10/07/17 14:36 Urine Nitrite Neg (Negative) 10/07/17 14:36 Urine Bilirubin Neg (Negative) 10/07/17 14:36 Urine Urobilinogen 4.0 mg/dL (<2.0) 10/07/17 14:36 Ur Leukocyte Esterase Tr (Negative) 10/07/17 14:36 Urine WBC (Auto) 6.0 /HPF (0.0-6.0) 10/07/17 14:36 Urine RBC (Auto) 3.0 /HPF (0.0-6.0) 10/07/17 14:36 U Epithel Cells (Auto) 1.0 /HPF (0-13.0) 10/07/17 14:36 Urine Bacteria (Auto) 4+ /HPF (Negative) 10/07/17 14:36 Urine WBC Clumps 2+ /HPF 10/07/17 14:36 Urine Mucus 1+ /HPF 10/07/17 14:36 Urine Yeast (Budding) 1+ /HPF 10/07/17 14:36
[2017-10-08] MEDS: CORDARONE PO SCH (10:55)
[2017-10-08] MEDS: ECOTRIN PO SCH (10:55)
[2017-10-08] MEDS: ULTRAM PO SCH ×2 (10:55→21:32)
[2017-10-08] MEDS: PROTONIX PO SCH (10:55)
[2017-10-08] MEDS: MAG-OX PO SCH (10:55)
[2017-10-08] MEDS ORDERED: NACL 0.9% 500 ML 500 ML IV ONE (11:00)
--- NOTE | 2017-10-08 11:22 | Consultation ---
History of Present Illness Consult date: 10/08/17 Consult reason: congestive heart failure History of present illness: The patient is a 77-year-old woman who lives in a [facility] and has multiple severe comorbidities. She is admitted to the hospital at this time with complaints of musculoskeletal type right shoulder pain. In addition, there was some fatigue and shortness of breath, and oxygen saturation was 70% on EMS arrival. She was also reported to have a blood sugar of 44, and low blood pressure of 82 systolic. Chest x-ray on presentation revealed severe cardiomegaly, with minimal vascular congestion. Patient's cardiac history is extensive. 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 She has a four-chamber cardiomyopathy and severe pulmonary hypertension with pulmonary artery systolic pressure of 74. There is an indwelling cardiac defibrillator for primary prevention of sudden cardiac . In addition, she has chronic atrial fibrillation and is on warfarin for chronic anticoagulation. Currently, the patient is on the medical floor, appears in no acute distress. She has mild bilateral lower extremity edema with chronic stasis changes. EKG is atrial fibrillation with a well-controlled ventricular response and narrow QRS complexes. On this presentation, initial INR was supratherapeutic at 3.4, and has increased to 4.9 with continued administration of Coumadin at 3 mg daily. Past History Past Medical History: atrial fib, heart failure Medications and Allergies Allergies Allergy/AdvReac Type Severity Reaction Status Date / Time codeine Allergy Unknown Verified 10/07/17 12:08 Home Medications Medication Instructions Recorded Confirmed Last Taken Type AtorvaSTATin [Lipitor] 20 mg PO HS tablet 07/01/15 10/07/17 Unknown Rx Furosemide [Lasix TAB] 40 mg PO QDAY tablet 07/01/15 10/07/17 Unknown Rx Spironolactone [Aldactone] 12.5 mg PO QDAY tablet 07/01/15 10/07/17 Unknown Rx amLODIPine [Norvasc] 10 mg PO DAILY tablet 07/01/15 10/07/17 Unknown Rx Amiodarone [Cordarone 200 MG TAB] 200 mg PO DAILY #30 tablet 02/24/16 10/07/17 Unknown Rx Aspirin EC [Aspirin Enteric Coated 325 mg PO QDAY #30 tablet 02/24/16 10/07/17 Unknown Rx TAB] Carvedilol [Coreg] 6.25 mg PO BID #60 tablet 02/24/16 10/07/17 Unknown Rx Insulin Aspart Prot/Aspart(Nf) 6 units SUB-Q BIDDIAB #1 vial 02/24/16 10/07/17 Unknown Rx [NovoLOG Mix 70/30 VIAL] Insulin Aspart [NovoLOG Flexpen] 0 units SQ ACHS 03/09/16 10/07/17 Unknown History Magnesium Oxide [Mag-Ox] 400 mg PO QDAY #10 tablet 03/10/16 10/07/17 Unknown Rx Phosphorus #1 [K-Phos Neutral] 250 mg PO QID #40 tablet 03/10/16 10/07/17 Unknown Rx Digoxin [Lanoxin] 0.125 mg PO DAILY 10/07/17 10/07/17 Unknown History Omeprazole 40 mg PO DAILY 10/07/17 10/07/17 Unknown History Warfarin [Coumadin] 3 mg PO QDAY 10/07/17 10/07/17 Unknown History traMADol [Ultram 50 MG tab] 50 mg PO BID 10/07/17 10/07/17 Unknown History Active Meds: Active Medications Acetaminophen (Tylenol) 650 mg PO Q4H PRN PRN Reason: Pain MILD(1-3)/Fever >100.5/SAINI Amiodarone HCl (Cordarone) 200 mg PO DAILY [facility] Last Admin: 10/08/17 10:55 Dose: 200 mg Aspirin (Ecotrin) 325 mg PO QDAY [facility] Last Admin: 10/08/17 10:55 Dose: 325 mg Atorvastatin Calcium (Lipitor) 20 mg PO HS [facility] Last Admin: 10/07/17 23:24 Dose: 20 mg Digoxin (Lanoxin) 0.125 mg PO DAILY@1700 [facility] Last Admin: 10/07/17 23:43 Dose: Not Given Furosemide (Lasix) 40 mg IV 0600,1800 [facility] Last Admin: 10/08/17 06:20 Dose: Not Given Sodium Chloride (Nacl 0.9% 500 Ml) 500 mls @ 999 mls/hr IV ONCE ONE Stop: 10/08/17 11:30 Milrinone Lactate/Dextrose (Milrinone-D5w 20 Mg/100 Ml) 20 mg in 100 mls @ 10.541 mls/hr IV TITR [facility] Stop: 10/11/17 11:59 Insulin Human Lispro (Humalog) 0 unit SUB-Q [facility]; Protocol Last Admin: 10/08/17 08:50 Dose: Not Given Insulin Human Lispro (Humalog) 6 unit SUB-Q [facility] Last Admin: 10/08/17 08:51 Dose: Not Given Magnesium Oxide (Mag-Ox) 400 mg PO QDAY [facility] Last Admin: 10/08/17 10:55 Dose: 400 mg Morphine Sulfate (Morphine) 2 mg IV Q4H PRN PRN Reason: Pain, Moderate (4-6) Ondansetron HCl (Zofran) 4 mg IV Q8H PRN PRN Reason: Nausea And Vomiting Oxycodone/Acetaminophen (Percocet 5/325) 1 tab PO Q6H PRN PRN Reason: Pain, Moderate (4-6) Pantoprazole Sodium (Protonix) 40 mg PO DAILY [facility] Last Admin: 10/08/17 10:55 Dose: 40 mg Sodium Chloride (Sodium Chloride Flush Syringe 10 Ml) 10 ml IV BID [facility] Last Admin: 10/07/17 23:26 Dose: 10 ml Sodium Chloride (Sodium Chloride Flush Syringe 10 Ml) 10 ml IV PRN PRN PRN Reason: LINE FLUSH Sodium Phosphate (K-Phos Neutral) 250 mg PO QID [facility] Last Admin: 10/07/17 23:27 Dose: 250 mg Spironolactone (Aldactone) 12.5 mg PO QDAY [facility] Tramadol HCl (Ultram) 50 mg PO BID [facility] Last Admin: 10/08/17 10:55 Dose: 50 mg Zolpidem Tartrate (Ambien) 5 mg PO QHS PRN PRN Reason: Insomnia Review of Systems Cardiovascular: orthopnea, edema, shortness of breath, no chest pain, no palpitations, no rapid/irregular heart beat, no syncope, no lightheadedness Physical Examination Vital Signs Pulse Resp BP 60 20 82/31 10/07/17 11:46 10/07/17 11:46 10/07/17 11:46 General appearance: no acute distress HEENT: Positive: PERRL Neck: Positive: neck supple Cardiac: Positive: irregularly irregular Lungs: Positive: Decreased Breath Sounds Neuro: Positive: Grossly Intact Abdomen: Positive: Soft Female genitourinary: deferred Skin: Positive: Clear Extremities: Present: +1 Edema (with chronic stasis changes) Results 10/08/17 08:37 10/08/17 08:37 Cardiac Enzymes 10/07/17 10/08/17 10/08/17 Range/Units 13:03 08:37 08:37 AST 17 20 (5-40) units/L CK-MB (CK-2) 3.1 (0.0-4.0) ng/mL Coagulation 10/07/17 10/08/17 Range/Units 13:03 08:37 PT 37.5 H 49.9 H (12.2-14.9) Sec. INR 3.49 H 4.97 H (0.87-1.13) APTT 51.7 H (24.2-36.6) Sec. Lipids 10/07/17 Range/Units 13:03 Triglycerides 69 (2-149) mg/dL Cholesterol 80 (50-199) mg/dL HDL Cholesterol 29 L (40-59) mg/dL Cholesterol/HDL Ratio 2.75 % CBC 10/07/17 10/08/17 Range/Units 13:03 08:37 WBC 3.7 L 3.3 L (4.5-11.0) K/mm3 RBC 4.06 3.87 (3.65-5.03) M/mm3 Hgb 11.3 11.1 (10.1-14.3) gm/dl Hct 35.7 33.2 (30.3-42.9) % Plt Count 164 157 (140-440) K/mm3 Comprehensive Metabolic Panel 10/07/17 10/08/17 Range/Units 13:03 08:37 Sodium 137 134 L (137-145) mmol/L Potassium 4.8 5.4 H (3.6-5.0) mmol/L Chloride 102.2 101.4 (98-107) mmol/L Carbon Dioxide 21 L 21 L (22-30) mmol/L BUN 58 H 69 H (7-17) mg/dL Creatinine 2.6 H 2.5 H (0.7-1.2) mg/dL Glucose 134 H 109 H (65-100) mg/dL Calcium 9.5 9.5 (8.4-10.2) mg/dL AST 17 20 (5-40) units/L ALT 11 12 (7-56) units/L Alkaline Phosphatase 80 73 (35-129) units/L Total Protein 5.7 L 5.6 L (6.3-8.2) g/dL Albumin 2.1 L 1.7 L (3.9-5) g/dL EKG interpretations - Telemetry EKG Rhythm: Atrial Fibrillation Assessment and Plan - Patient Problems (1) Chronic systolic heart failure Current Visit: Yes Status: Acute Plan to address problem: We will add a trial of intravenous milrinone to heart failure management. The patient may need to be transferred to telemetry for milrinone infusion therapy. Echocardiogram with Doppler for left ventricular function and valvular function assessment. (2) Chronic atrial fibrillation Current Visit: Yes Status: Acute Plan to address problem: Rate control and Coumadin anticoagulation. (3) Warfarin anticoagulation Current Visit: Yes Status: Acute Plan to address problem: Target INR for Coumadin is 2.0-3.0. I will recommend holding Coumadin for 2 days, and resume when INR is below 3 to lower dose 2.5 mg daily. (4) Acute pain of right shoulder Current Visit: Yes Status: Acute Plan to address problem: Patient has musculoskeletal shoulder pain, I will defer to internal medicine and if needed orthopedic surgery for further management.
[2017-10-08 11:59] LABS: Band Neutrophils # (Manual) 0.4 K/mm3; Basophils % (Manual) 0 % (0.0-1.8); Promyelocytes # (Manual) 0.1 K/mm3; Total Cells Counted 100
[2017-10-08 12:02] LABS: Anisocytosis 1+; Burr Cells Few; Dohle Bodies 1+; Ovalocytes 1+; Platelet Estimate A; Poikilocytosis 1+; Toxic Granulation Few
[2017-10-08] MEDS ORDERED: KIONEX PO ONE ×2 (13:00→19:00)
--- NOTE | 2017-10-08 14:48 | Consultation ---
History of Present Illness - Reason for Consult Consult date: 10/08/17 acute renal failure - History of Present Illness patient with h/o CHF was admitted yesterday for worsening SOB and was strated with IV lasix and aldactone, patient is also being evaluated by cardiology and planning on starting Milrinone drip. renal consult was requested for worsening kidney function and hyperkalemia Past History Past Medical History: atrial fib, heart failure Medications and Allergies Allergies Allergy/AdvReac Type Severity Reaction Status Date / Time codeine Allergy Unknown Verified 10/07/17 12:08 Home Medications Medication Instructions Recorded Confirmed Last Taken Type AtorvaSTATin [Lipitor] 20 mg PO HS tablet 07/01/15 10/07/17 Unknown Rx Furosemide [Lasix TAB] 40 mg PO QDAY tablet 07/01/15 10/07/17 Unknown Rx Spironolactone [Aldactone] 12.5 mg PO QDAY tablet 07/01/15 10/07/17 Unknown Rx amLODIPine [Norvasc] 10 mg PO DAILY tablet 07/01/15 10/07/17 Unknown Rx Amiodarone [Cordarone 200 MG TAB] 200 mg PO DAILY #30 tablet 02/24/16 10/07/17 Unknown Rx Aspirin EC [Aspirin Enteric Coated 325 mg PO QDAY #30 tablet 02/24/16 10/07/17 Unknown Rx TAB] Carvedilol [Coreg] 6.25 mg PO BID #60 tablet 02/24/16 10/07/17 Unknown Rx Insulin Aspart Prot/Aspart(Nf) 6 units SUB-Q BIDDIAB #1 vial 02/24/16 10/07/17 Unknown Rx [NovoLOG Mix 70/30 VIAL] Insulin Aspart [NovoLOG Flexpen] 0 units SQ ACHS 03/09/16 10/07/17 Unknown History Magnesium Oxide [Mag-Ox] 400 mg PO QDAY #10 tablet 03/10/16 10/07/17 Unknown Rx Phosphorus #1 [K-Phos Neutral] 250 mg PO QID #40 tablet 03/10/16 10/07/17 Unknown Rx Digoxin [Lanoxin] 0.125 mg PO DAILY 10/07/17 10/07/17 Unknown History Omeprazole 40 mg PO DAILY 10/07/17 10/07/17 Unknown History Warfarin [Coumadin] 3 mg PO QDAY 10/07/17 10/07/17 Unknown History traMADol [Ultram 50 MG tab] 50 mg PO BID 10/07/17 10/07/17 Unknown History Active Meds: Active Medications Acetaminophen (Tylenol) 650 mg PO Q4H PRN PRN Reason: Pain MILD(1-3)/Fever >100.5/SAINI Amiodarone HCl (Cordarone) 200 mg PO DAILY [facility] Last Admin: 10/08/17 10:55 Dose: 200 mg Aspirin (Ecotrin) 325 mg PO QDAY [facility] Last Admin: 10/08/17 10:55 Dose: 325 mg Atorvastatin Calcium (Lipitor) 20 mg PO HS [facility] Last Admin: 10/07/17 23:24 Dose: 20 mg Digoxin (Lanoxin) 0.125 mg PO DAILY@1700 [facility] Last Admin: 10/07/17 23:43 Dose: Not Given Furosemide (Lasix) 40 mg IV 0600,1800 [facility] Last Admin: 10/08/17 06:20 Dose: Not Given Milrinone Lactate/Dextrose (Milrinone-D5w 20 Mg/100 Ml) 20 mg in 100 mls @ 10.541 mls/hr IV TITR [facility] Stop: 10/11/17 11:59 Insulin Human Lispro (Humalog) 0 unit SUB-[address] [facility]; Protocol Last Admin: 10/08/17 08:50 Dose: Not Given Insulin Human Lispro (Humalog) 6 unit SUB-Q [facility] Last Admin: 10/08/17 08:51 Dose: Not Given Magnesium Oxide (Mag-Ox) 400 mg PO QDAY [facility] Last Admin: 10/08/17 10:55 Dose: 400 mg Morphine Sulfate (Morphine) 2 mg IV Q4H PRN PRN Reason: Pain, Moderate (4-6) Ondansetron HCl (Zofran) 4 mg IV Q8H PRN PRN Reason: Nausea And Vomiting Oxycodone/Acetaminophen (Percocet 5/325) 1 tab PO Q6H PRN PRN Reason: Pain, Moderate (4-6) Pantoprazole Sodium (Protonix) 40 mg PO DAILY [facility] Last Admin: 10/08/17 10:55 Dose: 40 mg Sodium Chloride (Sodium Chloride Flush Syringe 10 Ml) 10 ml IV BID [facility] Last Admin: 10/07/17 23:26 Dose: 10 ml Sodium Chloride (Sodium Chloride Flush Syringe 10 Ml) 10 ml IV PRN PRN PRN Reason: LINE FLUSH Tramadol HCl (Ultram) 50 mg PO BID [facility] Last Admin: 10/08/17 10:55 Dose: 50 mg Warfarin Sodium (Coumadin) 2.5 mg PO DAILY@1700 [facility]; Protocol Warfarin Sodium (Coumadin Pharmacy To Dose) 1 each PO PKCONSULT [facility] Zolpidem Tartrate (Ambien) 5 mg PO QHS PRN PRN Reason: Insomnia Review of Systems All systems: negative (SOB, weakness) Exam - Vital Signs Vital signs: Vital Signs Pulse Resp BP 60 20 82/31 10/07/17 11:46 10/07/17 11:46 10/07/17 11:46 - General Appearance General appearance: well-developed, well-nourished, appears stated age EENT: ATNC, PERRL, mucous membranes moist Neck: Present: neck supple Respiratory: Clear to Ascultation Heart: irregular Gastrointestinal: Present: normal Integumentary: no rash, warm and dry Neurologic: no focal deficit, no asterixis Musculoskeletal: Present: other (1-2+ pitting edema in BLE) Psychiatric: cooperative Results - Lab Results 10/08/17 08:37 10/08/17 08:37 Most recent lab results Calcium 9.5 mg/dL (8.4-10.2) 10/08/17 08:37 Assessment and Plan - Patient Problems (1) Acute CHF (congestive heart failure) Current Visit: Yes Status: Acute Qualifiers: Heart failure type: systolic Qualified Code(s): I50.21 - Acute systolic ( congestive) heart failure Plan to address problem: cardiology on board, EF 10-15% repeated ECHO is pending on milrinone gtt on IV lasix will hold aldactone due to rising K (2) SUNDAR (acute kidney injury) Current Visit: Yes Status: Acute Plan to address problem: baseline ~1.2 work up ordered including urine lyte and protein will order renal US possible cardiorenal syndrome, may improve with mirinone renally dose meds strict I&O daily weight (3) Atrial fibrillation Current Visit: Yes Status: Acute Plan to address problem: on coumadin
--- NOTE | 2017-10-08 17:05 | Ultrasound Report ---
FINAL REPORT EXAM: US RENAL BILAT HISTORY: renal failure COMPARISON: Renal ultrasound from May 2017. TECHNIQUE: Several real-time grayscale and color Doppler images were obtained. FINDINGS: Right kidney measures 10.8 x 4.0 x 4.6 centimeters. Cortex 1.4 centimeters. Left kidney measures 10.0 x 4.3 x 4.1 centimeters. Cortex 1.2 centimeters. No hydronephrosis bilaterally. Mid right kidney there is a 1.4 x 1.4 x 1.5 centimeter cyst. At the superior margin of the right kidney there is a hypoechoic structure measuring 1.8 x 2.1 x 2.4 centimeters. This may rise exophytically from the right kidney or may be separate. Technologist measures common bile duct at 17 millimeters. This is dilated. Prominent sludge within the gallbladder. There may be small shadowing gallstones. No focal renal lesion on the left. IMPRESSION: No hydronephrosis bilaterally. No focal renal lesion on the left. Simple cyst mid right kidney measuring 1.5 centimeters. Hypoechoic indeterminate structure adjacent to the superior margin right kidney measures 2.4 centimeters. This is grossly stable from prior study. CT of the abdomen with without contrast suggested for further evaluation. This could arise exophytically from the right kidney or could arise from the right adrenal gland. Abnormal dilatation the common bile duct. Probable sludge within the gallbladder. Possible small non shadowing stones.
[2017-10-08] MEDS: MILRINONE-D5W 20 MG/100 ML 20 MG/100 ML BAG IV SCH (17:14)
[2017-10-08] MEDS: LANOXIN PO SCH (18:30)
[2017-10-08] MEDS: SODIUM CHLORIDE FLUSH SYRINGE 10 ML IV SCH (21:33)
[2017-10-09] MEDS: MILRINONE-D5W 20 MG/100 ML 20 MG/100 ML BAG IV SCH ×3 (01:06→23:16)
[2017-10-09] MEDS: LASIX IV SCH ×2 (05:59→18:00)
[2017-10-09] MEDS: HumaLOG SUB-Q SCH ×4 (07:30→23:24)
[2017-10-09 08:24] LABS: Hematocrit 34.5 % (30.3-42.9); Hemoglobin 11.3 gm/dl (10.1-14.3); Mean Corpuscular HGB Conc 33 % (30-34); Mean Corpuscular Hemoglobin 28 pg (28-32); Mean Corpuscular Volume 86 fl (79-97); Platelet Count 146 K/mm3 (140-440); Red Blood Count 4.02 M/mm3 (3.65-5.03); Red Cell Distribution Width 16.7 % (13.2-15.2)
[2017-10-09 08:28] LABS: INR 4.73 (0.87-1.13)
[2017-10-09 08:35] LABS: Calcium 10.7 mg/dL (8.4-10.2)
[2017-10-09 09:49] LABS: Band Neutrophils # (Manual) 0.9 K/mm3; Basophils % (Manual) 0 % (0.0-1.8); Eosinophils % (Manual) 0 % (0.0-4.3); Myelocytes # (Manual) 0.1 K/mm3; Total Cells Counted 100
[2017-10-09 09:50] LABS: Anisocytosis 1+; Burr Cells Few; Poikilocytosis 1+
[2017-10-09 09:51] LABS: Acanthocytes Few; Ovalocytes 1+; Platelet Clumps Rare
--- NOTE | 2017-10-09 10:10 | Progress Note ---
Assessment and Plan Assessment and plan: Acute on chronic systolic CHF. Admitted to Telemetry lasix iv. Coreg, on hold for now because of low BP. Will resume when BP improves Started on Milrinone infusion yesterday Diabetes mellitus Type 2. Fingerstick glucose QAC AND hs Hypotension. Improving BP, Coreg and Norvasc on hold. Acute Kidney Injury. Creatinine 2.7 today, worse than yesterday Nephrology following Atrial fibrillation with controlled ventricular response, On Coumadin. Coumadin on hold since adnission, because INR high 4.73 today Daily INR DVT prophylaxis. On Coumadin Full code status. History Interval history: Feels better, less shortness of breath, No chest pain Hospitalist Physical - Physical exam Narrative exam: General:Not in acute distress, lying in bed, HEENT:Normocephalic, atraumatic Neck:supple,no JVD Lungs: Clear to auscultation, no rales, no wheeze Heart:S1 and S2 regular, no murmurs, rubs or gallop Abd: soft, non tender,non distended, normal bowel sounds Ext: Bilateral lower extremity edema, large blisters both lower ext, no clubbing or cyanosis Neuro:Awake,alert,, moves all extremities, Skin:dark pigmentation, blisters - Constitutional Vitals: Temp Pulse Resp BP Pulse Ox 98.5 F 80 20 99/36 94 10/09/17 00:13 10/09/17 08:51 10/09/17 05:01 10/09/17 08:51 10/09/17 08:51 General appearance: Present: well-nourished Results - Labs CBC & Chem 7: 10/09/17 07:31 10/09/17 07:31 Labs: Laboratory Last Values WBC 8.2 K/mm3 (4.5-11.0) 10/09/17 07:31 RBC 4.02 M/mm3 (3.65-5.03) 10/09/17 07:31 Hgb 11.3 gm/dl (10.1-14.3) 10/09/17 07:31 Hct 34.5 % (30.3-42.9) 10/09/17 07:31 MCV 86 fl (79-97) 10/09/17 07:31 MCH 28 pg (28-32) 10/09/17 07:31 MCHC 33 % (30-34) 10/09/17 07:31 RDW 16.7 % (13.2-15.2) H 10/09/17 07:31 Plt Count 146 K/mm3 (140-440) 10/09/17 07:31 Add Manual Diff Complete 10/09/17 07:31 Total Counted 100 10/09/17 07:31 Seg Neuts % (Manual) 71.0 % (40.0-70.0) H 10/09/17 07:31 Band Neutrophils % 11.0 % 10/09/17 07:31 Lymphocytes % (Manual) 6.0 % (13.4-35.0) L 10/09/17 07:31 Reactive Lymphs % (Man) 0 % 10/09/17 07:31 Monocytes % (Manual) 8.0 % (0.0-7.3) H 10/09/17 07:31 Eosinophils % (Manual) 0 % (0.0-4.3) 10/09/17 07:31 Basophils % (Manual) 0 % (0.0-1.8) 10/09/17 07:31 Metamyelocytes % 3.0 % 10/09/17 07:31 Myelocytes % 1.0 % 10/09/17 07:31 Promyelocytes % 0 % 10/09/17 07:31 Blast Cells % 0 % 10/09/17 07:31 Nucleated RBC % Not Reportable 10/09/17 07:31 Seg Neutrophils # Man 5.8 K/mm3 (1.8-7.7) 10/09/17 07:31 Band Neutrophils # 0.9 K/mm3 10/09/17 07:31 Lymphocytes # (Manual) 0.5 K/mm3 (1.2-5.4) L 10/09/17 07:31 Abs React Lymphs (Man) 0.0 K/mm3 10/09/17 07:31 Monocytes # (Manual) 0.7 K/mm3 (0.0-0.8) 10/09/17 07:31 Eosinophils # (Manual) 0.0 K/mm3 (0.0-0.4) 10/09/17 07:31 Basophils # (Manual) 0.0 K/mm3 (0.0-0.1) 10/09/17 07:31 Metamyelocytes # 0.2 K/mm3 10/09/17 07:31 Myelocytes # 0.1 K/mm3 10/09/17 07:31 Promyelocytes # 0.0 K/mm3 10/09/17 07:31 Blast Cells # 0.0 K/mm3 10/09/17 07:31 WBC Morphology Not Reportable 10/09/17 07:31 Hypersegmented Neuts Not Reportable 10/09/17 07:31 Hyposegmented Neuts Not Reportable 10/09/17 07:31 Hypogranular Neuts Not Reportable 10/09/17 07:31 Smudge Cells Not Reportable 10/09/17 07:31 Toxic Granulation Not Reportable 10/09/17 07:31 Toxic Vacuolation Not Reportable 10/09/17 07:31 Dohle Bodies Not Reportable 10/09/17 07:31 Pelger-Huet Anomaly Not Reportable 10/09/17 07:31 Bennie Rods Not Reportable 10/09/17 07:31 Platelet Estimate Appears normal 10/09/17 07:31 Clumped Platelets Rare 10/09/17 07:31 Plt Clumps, EDTA Not Reportable 10/09/17 07:31 Large Platelets Not Reportable 10/09/17 07:31 Giant Platelets Not Reportable 10/09/17 07:31 Platelet Satelliting Not Reportable 10/09/17 07:31 Plt Morphology Comment Not Reportable 10/09/17 07:31 RBC Morphology Not Reportable 10/09/17 07:31 Dimorphic RBCs Not Reportable 10/09/17 07:31 Polychromasia Not Reportable 10/09/17 07:31 Hypochromasia Not Reportable 10/09/17 07:31 Poikilocytosis 1+ 10/09/17 07:31 Anisocytosis 1+ 10/09/17 07:31 Microcytosis Not Reportable 10/09/17 07:31 Macrocytosis Not Reportable 10/09/17 07:31 Spherocytes Not Reportable 10/09/17 07:31 Pappenheimer Bodies Not Reportable 10/09/17 07:31 Sickle Cells Not Reportable 10/09/17 07:31 Target Cells Not Reportable 10/09/17 07:31 Tear Drop Cells Not Reportable 10/09/17 07:31 Ovalocytes 1+ 10/09/17 07:31 Helmet Cells Not Reportable 10/09/17 07:31 [place] Bodies Not Reportable 10/09/17 07:31 [place] Rings Not Reportable 10/09/17 07:31 Francisca Cells Few 10/09/17 07:31 Bite Cells Not Reportable 10/09/17 07:31 Crenated Cell Not Reportable 10/09/17 07:31 Elliptocytes Few 10/09/17 07:31 Acanthocytes (Spur) Few 10/09/17 07:31 Rouleaux Not Reportable 10/09/17 07:31 Hemoglobin C Crystals Not Reportable 10/09/17 07:31 Schistocytes Not Reportable 10/09/17 07:31 Malaria parasites Not Reportable 10/09/17 07:31 Earl Bodies Not Reportable 10/09/17 07:31 Hem Pathologist Commnt No 10/09/17 07:31 PT 48.0 Sec. (12.2-14.9) H 10/09/17 07:31 INR 4.73 (0.87-1.13) H 10/09/17 07:31 APTT 51.7 Sec. (24.2-36.6) H 10/07/17 13:03 POC ABG pH 7.345 (7.35-7.45) L 10/07/17 14:23 POC ABG pCO2 34.9 (35-45) L 10/07/17 14:23 POC ABG pO2 61 (80-105) L 10/07/17 14:23 POC ABG HCO3 19.1 10/07/17 14:23 POC ABG Total CO2 20 10/07/17 14:23 POC ABG O2 Sat 90 10/07/17 14:23 POC ABG Base Excess -7 10/07/17 14:23 FiO2 21 % 10/07/17 14:23 Sodium 138 mmol/L (137-145) 10/09/17 07:31 Potassium 4.6 mmol/L (3.6-5.0) 10/09/17 07:31 Chloride 101.8 mmol/L (98-107) 10/09/17 07:31 Carbon Dioxide 21 mmol/L (22-30) L 10/09/17 07:31 Anion Gap 20 mmol/L 10/09/17 07:31 BUN 82 mg/dL (7-17) H 10/09/17 07:31 Creatinine 2.7 mg/dL (0.7-1.2) H 10/09/17 07:31 Estimated GFR 21 ml/min 10/09/17 07:31 BUN/Creatinine Ratio 30 % 10/09/17 07:31 Glucose 109 mg/dL (65-100) H 10/09/17 07:31 POC Glucose 125 (70-105) H 10/09/17 05:15 Hemoglobin A1c 6.6 % (4-6) H 10/07/17 13:03 Lactic Acid 2.20 mmol/L (0.7-2.0) H* 10/07/17 15:54 Calcium 10.7 mg/dL (8.4-10.2) H 10/09/17 07:31 Phosphorus 5.40 mg/dL (2.5-4.5) H 10/09/17 07:31 Total Bilirubin 0.70 mg/dL (0.1-1.2) 10/08/17 08:37 AST 20 units/L (5-40) 10/08/17 08:37 ALT 12 units/L (7-56) 10/08/17 08:37 Alkaline Phosphatase 73 units/L (35-129) 10/08/17 08:37 Total Creatine Kinase 182 units/L (30-135) H 10/08/17 08:37 CK-MB (CK-2) 3.1 ng/mL (0.0-4.0) 10/08/17 08:37 CK-MB (CK-2) Rel Index 1.7 (0-4) 10/08/17 08:37 Troponin T 0.058 ng/mL (0.00-0.029) H 10/08/17 08:37 NT-Pro-B Natriuret Pep 74781 pg/mL (0-900) H 10/07/17 13:03 Total Protein 5.6 g/dL (6.3-8.2) L 10/08/17 08:37 Albumin 1.7 g/dL (3.9-5) L 10/08/17 08:37 Albumin/Globulin Ratio 0.4 % 10/08/17 08:37 Triglycerides 69 mg/dL (2-149) 10/07/17 13:03 Cholesterol 80 mg/dL (50-199) 10/07/17 13:03 LDL Cholesterol Direct 23 mg/dL (50-130) L 10/07/17 13:03 HDL Cholesterol 29 mg/dL (40-59) L 10/07/17 13:03 Cholesterol/HDL Ratio 2.75 % 10/07/17 13:03 Urine Color Astrid (Yellow) 10/07/17 14:36 Urine Turbidity Clear (Clear) 10/07/17 14:36 Urine pH 5.0 (5.0-7.0) 10/07/17 14:36 Ur Specific Keeler 1.020 (1.003-1.030) 10/07/17 14:36 Urine Protein 30 mg/dl mg/dL (Negative) 10/07/17 14:36 Urine Glucose (UA) Neg mg/dL (Negative) 10/07/17 14:36 Urine Ketones Neg mg/dL (Negative) 10/07/17 14:36 Urine Blood Neg (Negative) 10/07/17 14:36 Urine Nitrite Neg (Negative) 10/07/17 14:36 Urine Bilirubin Neg (Negative) 10/07/17 14:36 Urine Urobilinogen 4.0 mg/dL (<2.0) 10/07/17 14:36 Ur Leukocyte Esterase Tr (Negative) 10/07/17 14:36 Urine WBC (Auto) 6.0 /HPF (0.0-6.0) 10/07/17 14:36 Urine RBC (Auto) 3.0 /HPF (0.0-6.0) 10/07/17 14:36 U Epithel Cells (Auto) 1.0 /HPF (0-13.0) 10/07/17 14:36 Urine Bacteria (Auto) 4+ /HPF (Negative) 10/07/17 14:36 Urine WBC Clumps 2+ /HPF 10/07/17 14:36 Urine Mucus 1+ /HPF 10/07/17 14:36 Urine Yeast (Budding) 1+ /HPF 10/07/17 14:36
[2017-10-09] MEDS: ECOTRIN PO SCH (10:19)
[2017-10-09] MEDS: CORDARONE PO SCH (10:19)
[2017-10-09] MEDS: PROTONIX PO SCH (10:19)
[2017-10-09] MEDS: MAG-OX PO SCH (10:19)
[2017-10-09] MEDS: ULTRAM PO SCH (10:20)
--- NOTE | 2017-10-09 12:29 | Progress Note ---
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 Presence of indwelling cardiac defibrillator Chronic atrial fibrillation, rate control on warfarin for chronic anticoagulation. initial INR was supratherapeutic at 3.4. Continue aggressive medical management with IV milrinone for chronic systolic heart failure. Check a TSH and serum magnesium. Beta jamia therapy for suppression of NSVT. Subjective Date of service: 10/09/17 Interval history: Short burst of NSVT on telemetry overnight. Patient remained asymptomatic. Continues on IV milrinone therapy. Objective Vital Signs Temp Pulse Resp BP BP Pulse Ox 10/09/17 11:15 97.7 F 79 20 108/39 93 10/09/17 08:51 80 99/36 94 10/09/17 05:01 83 20 110/45 89 10/09/17 02:19 76 10/09/17 00:13 98.5 F 71 20 110/41 87 10/08/17 20:30 98.4 F 86 24 104/41 96 10/08/17 18:30 69 111/46 10/08/17 17:22 98.0 F 69 18 111/46 93 - Physical Examination General: No Apparent Distress HEENT: Positive: PERRL Cardiac: Positive: irregularly irregular Extremities: Present: +1 Edema (with chronic stasis changes) - Labs and Meds Coagulation 10/09/17 Range/Units 07:31 PT 48.0 H (12.2-14.9) Sec. INR 4.73 H (0.87-1.13) CBC 10/09/17 Range/Units 07:31 WBC 8.2 (4.5-11.0) K/mm3 RBC 4.02 (3.65-5.03) M/mm3 Hgb 11.3 (10.1-14.3) gm/dl Hct 34.5 (30.3-42.9) % Plt Count 146 (140-440) K/mm3 Comprehensive Metabolic Panel 10/09/17 Range/Units 07:31 Sodium 138 (137-145) mmol/L Potassium 4.6 (3.6-5.0) mmol/L Chloride 101.8 (98-107) mmol/L Carbon Dioxide 21 L (22-30) mmol/L BUN 82 H (7-17) mg/dL Creatinine 2.7 H (0.7-1.2) mg/dL Glucose 109 H (65-100) mg/dL Calcium 10.7 H (8.4-10.2) mg/dL
--- NOTE | 2017-10-09 14:49 | Progress Note ---
Assessment and Plan Assessment and Plan Chronic Systolic CHF: Cardiology on board, EF 10-15%, on ASA, statin, f/u recs Repeat Echo pending On Milrinone drip On lasix 40 mg IV BID Acute kidney injury possibly cardiorenal syndrome/ATN, no obstruction, questionable CKD: Mid Right Kidney Simple Cyst: Renal function reviewed, SCr level increased to 2.7 today, yesterday's SCr level was 2.5 Renally dose meds On lasix 40 mg IV BID S/p Renal US on 10/08/17 showed no hydronephrosis, simple mid right kidney cyst, hypoechoic indeterminate structure adjacent to the superior margin of right kidney measures 2.4 cm, could arise exophytically from right kidney or could arise from right adrenal gland, recommend CT Abdomen. Abnormal dilitation of common bile duct, probable sludge within the gallbladder, possible small non- shadowing stone Will need CT Abdomen Pelvis without contrast for further evaluation of hypoechoic indeterminate structure adjacent to the superior margin of right kidney measures 2.4 cm Blood pressure marginally low in the 90s to low 100s systolic, holding coreg and norvasc for now Monitor labs daily Strict intake and output Irving Catheter: No Renal plan d/w Dr Silver Continue supportive therapy Non-Anion Gap Metabolic Acidosis: Monitor, no need for sodium bicarbonate supplementation at this time Atrial fibrillation: On warfarin and amiodarone 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 As per primary team Subjective Date of service: 10/09/17 Interval history: Pt seen in Echo suite, awake, however, unable to answer questions or follow commands, no acute distress Objective - Vital Signs Vital signs: Vital Signs - 12hr 10/09/17 10/09/17 10/09/17 05:01 08:51 11:15 Temperature 97.7 F Pulse Rate 83 80 79 Respiratory 20 20 Rate Blood Pressure 110/45 99/36 Blood Pressure 108/39 [Left] O2 Sat by Pulse 89 94 93 Oximetry - General Appearance General appearance: other (awake, no acute distress) EENT: ATNC Neck: no JVD Respiratory: Present: Other (Lung sounds decreased bilaterally, unlabored) Cardiology: irregularly irregular, S1S2 Gastrointestinal: normoactive bowel sounds (soft) Integumentary: other (bilateral lower extremity skin wounds with dressings in place) Neurologic: confused Musculoskeletal: other (1+ edema to both lower extremities) Psychiatric: other (confused) - Lab 05/14/18 07:31 10/09/17 07:31 Most recent lab results Calcium 10.7 mg/dL (8.4-10.2) H 10/09/17 07:31 Phosphorus 5.40 mg/dL (2.5-4.5) H 10/09/17 07:31 Magnesium 2.00 mg/dL (1.7-2.3) 10/09/17 12:36
[2017-10-09] MEDS: LANOXIN PO SCH (17:00)
[2017-10-09] MEDS: COREG PO SCH (23:18)
[2017-10-09] MEDS: SODIUM CHLORIDE FLUSH SYRINGE 10 ML IV SCH (23:23)
[2017-10-10] MEDS: ULTRAM PO SCH ×3 (00:33→21:25)
[2017-10-10] MEDS ORDERED: MILRINONE-D5W 20 MG/100 ML 20 MG/100 ML BAG IV SCH (02:00)
[2017-10-10 07:14] LABS: Hematocrit 35.6 % (30.3-42.9); Hemoglobin 11.4 gm/dl (10.1-14.3); Mean Corpuscular HGB Conc 32 % (30-34); Mean Corpuscular Hemoglobin 27 pg (28-32); Mean Corpuscular Volume 85 fl (79-97); Platelet Count 115 K/mm3 (140-440); Red Blood Count 4.17 M/mm3 (3.65-5.03); Red Cell Distribution Width 16.7 % (13.2-15.2)
[2017-10-10 07:30] LABS: Calcium 11.8 mg/dL (8.4-10.2)
[2017-10-10 07:40] LABS: INR 4.67 (0.87-1.13)
[2017-10-10] MEDS: LASIX IV SCH ×2 (07:58→18:03)
[2017-10-10] MEDS: HumaLOG SUB-Q SCH ×5 (08:11→21:26)
[2017-10-10 08:21] LABS: Band Neutrophils # (Manual) 1.2 K/mm3; Basophils % (Manual) 0 % (0.0-1.8); Eosinophils % (Manual) 0 % (0.0-4.3); Total Cells Counted 100
[2017-10-10 08:22] LABS: Anisocytosis 1+; Platelet Estimate Consistent w Auto
[2017-10-10] MEDS: COREG PO SCH (10:34)
[2017-10-10] MEDS: CORDARONE PO SCH ×2 (10:34→21:24)
[2017-10-10] MEDS: MAG-OX PO SCH ×2 (10:35→18:08)
[2017-10-10] MEDS: PROTONIX PO SCH ×2 (10:35→18:08)
[2017-10-10] MEDS: ECOTRIN PO SCH (10:35)
--- NOTE | 2017-10-10 11:13 | Progress Note ---
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 Presence of indwelling cardiac defibrillator Chronic atrial fibrillation, rate control on warfarin for chronic anticoagulation. initial INR was supratherapeutic at 3.4. Subjective Date of service: 10/10/17 Interval history: Patient is resting in bed with her eyes closed. Appears lethargic. IV milrinone held overnight due to hypotension. Objective Vital Signs Temp Pulse Pulse Resp BP BP Pulse Ox 10/10/17 07:55 98.1 F 87 20 97/42 90 10/10/17 05:52 98.1 F 72 20 103/41 96 10/10/17 02:00 117 H 10/10/17 00:08 67 89 10/10/17 00:07 97.2 F L 81 22 79/41 89 10/10/17 00:03 97.2 F L 73 22 78/31 97 10/09/17 23:54 88 83/35 87 10/09/17 23:18 74 90/36 10/09/17 22:00 62 98 10/09/17 19:38 98.4 F 72 90/36 88 10/09/17 17:00 97.9 F 80 20 99/34 99/34 98 10/09/17 16:04 97.9 F 66 18 92/28 94 10/09/17 11:15 97.7 F 79 20 108/39 93 - Physical Examination General: No Apparent Distress Cardiac: Positive: irregularly irregular - Labs and Meds Coagulation 10/10/17 Range/Units 06:13 PT 47.5 H (12.2-14.9) Sec. INR 4.67 H (0.87-1.13) CBC 10/10/17 Range/Units 06:13 WBC 13.5 H (4.5-11.0) K/mm3 RBC 4.17 (3.65-5.03) M/mm3 Hgb 11.4 (10.1-14.3) gm/dl Hct 35.6 (30.3-42.9) % Plt Count 115 L (140-440) K/mm3 Comprehensive Metabolic Panel 10/10/17 Range/Units 06:13 Sodium 137 (137-145) mmol/L Potassium 4.6 (3.6-5.0) mmol/L Chloride 99.6 (98-107) mmol/L Carbon Dioxide 19 L (22-30) mmol/L BUN 95 H (7-17) mg/dL Creatinine 3.0 H (0.7-1.2) mg/dL Glucose 105 H (65-100) mg/dL Calcium 11.8 H (8.4-10.2) mg/dL - Imaging and Cardiology EKG: report reviewed
--- NOTE | 2017-10-10 13:39 | Cat Scan Report ---
FINAL REPORT EXAM: CT HEAD/BRAIN WO CON HISTORY: CVA, AMS TECHNIQUE: CT examination of the head without IV contrast PRIORS: 06/23/2017 FINDINGS: Moderate mucosal thickening left ethmoid sinus with small fluid level. Other paranasal sinuses are clear as are the mastoid air cells and middle ear cavities. No change in findings of previous left frontal craniotomy and underlying postoperative encephalomalacia. Again noted is a small extra-axial peripheral left frontal nodule in this region with stable scattered calcification. This again most likely representing a meningioma. Size is unchanged. Bone windows demonstrate no acute fracture. There is ventricular and sulcal prominence compatible with global cerebrocortical atrophy. The brain contains no mass, mass effect, hemorrhage, or acute infarct. There is no extra-axial intracranial bleed, brain bleed, or midline shift. IMPRESSION: No acute CVA, intracranial bleed, or brain mass Left ethmoid sinus mucosal thickening with small fluid level may reflect acute sinusitis Stable postoperative change with encephalomalacia and volume loss in left frontal region Stable small extra-axial left frontal calcified nodule again most compatible with meningioma
--- NOTE | 2017-10-10 14:58 | Progress Note ---
Assessment and Plan Chronic Systolic CHF: Cardiology on board, EF 10-15%, on ASA, statin, f/u recs off Milrinone drip due to torsade on tele On lasix 40 mg IV BID Acute kidney injury possibly cardiorenal syndrome/ATN, no obstruction, questionable CKD: Mid Right Kidney Simple Cyst: kidney function cont to get worse, will consider MAKE UP OPERATOR HELPER within the next 1-2 days if no improvement, no family members at the room Monitor labs daily Strict intake and output Irving Catheter: No Non-Anion Gap Metabolic Acidosis: Monitor, no need for sodium bicarbonate supplementation at this time Atrial fibrillation: On warfarin and amiodarone 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 As per primary team Subjective Date of service: 10/10/17 Principal diagnosis: acute renal failure Interval history: patient is drowsy and not answering questions, she was transferred to ICU due to cardiac arrhythmias Objective - Vital Signs Vital signs: Vital Signs - 12hr 10/10/17 10/10/17 10/10/17 05:52 07:55 11:22 Temperature 98.1 F 98.1 F 98.3 F Pulse Rate 72 87 Respiratory 20 20 18 Rate Blood Pressure 103/41 97/42 137/47 O2 Sat by Pulse 96 90 Oximetry - General Appearance General appearance: appears stated age EENT: ATNC, PERRL, mucous membranes dry Neck: no carotid bruit Respiratory: Present: Decreased Breath Sounds Cardiology: tachycardia Gastrointestinal: normoactive bowel sounds, no tenderness, no distended Integumentary: no rash, warm and dry Neurologic: other (does not answer questions) Musculoskeletal: other (trace pitting edema in BLE) Psychiatric: other (does not answer questions) - Lab 10/10/17 06:13 10/10/17 06:13 Most recent lab results Calcium 11.8 mg/dL (8.4-10.2) H 10/10/17 06:13 Phosphorus 5.60 mg/dL (2.5-4.5) H 10/10/17 06:13 Magnesium 2.00 mg/dL (1.7-2.3) 10/09/17 12:36
--- NOTE | 2017-10-10 16:51 | XRay Report ---
FINAL REPORT EXAM: XR ABDOMEN 1V AP HISTORY: NG tube placement TECHNIQUE: Portable examination of the abdomen PRIORS: Renal ultrasound 10/08/2017 FINDINGS: Pneumoperitoneum: None visible. Abnormal fluid levels: None visible. Visceromegaly: None visible. Mass: None visible. Abnormal calcification: Nonspecific cluster calcification in left upper quadrant. Intestinal distention: None. Intestinal obstructive pattern: None. Stool volume: Normal. Degenerative change regional skeleton. Lumbar curvature with mid left apex. Nonspecific patchy opacity in left lung base. IMPRESSION: Nonspecific bowel gas pattern without intestinal distention in the visualized abdomen Distal tip gastric tube is present in the right upper quadrant of the abdomen, in the expected region of the distal stomach or proximal duodenum. Patchy opacity in left lung base may be scar, atelectasis, and/or pneumonia
[2017-10-10] MEDS ORDERED: COUMADIN PO SCH (17:00)
[2017-10-10] MEDS ORDERED: LOPRESSOR PO SCH (18:00)
[2017-10-10] MEDS: LOPRESSOR IV SCH (18:03)
[2017-10-10] MEDS: SODIUM CHLORIDE FLUSH SYRINGE 10 ML IV SCH ×2 (18:09→21:32)
[2017-10-11] MEDS: LOPRESSOR IV SCH (00:16)
[2017-10-11] MEDS: COREG PO SCH ×3 (03:19→23:27)
[2017-10-11 04:33] LABS: Hematocrit 35.5 % (30.3-42.9); Hemoglobin 11.9 gm/dl (10.1-14.3); Mean Corpuscular HGB Conc 34 % (30-34); Mean Corpuscular Hemoglobin 28 pg (28-32); Mean Corpuscular Volume 84 fl (79-97); Red Blood Count 4.23 M/mm3 (3.65-5.03); Red Cell Distribution Width 16.5 % (13.2-15.2)
[2017-10-11 04:34] LABS: Platelet Count 86 K/mm3 (140-440)
[2017-10-11 04:55] LABS: INR 5.23 (0.87-1.13)
[2017-10-11 05:13] LABS: Calcium 11.7 mg/dL (8.4-10.2)
[2017-10-11 05:16] LABS: Band Neutrophils # (Manual) 0.6 K/mm3; Basophils % (Manual) 0 % (0.0-1.8); Eosinophils % (Manual) 0 % (0.0-4.3); Total Cells Counted 100
[2017-10-11 05:17] LABS: Platelet Estimate Consistent w Auto
[2017-10-11] MEDS: LASIX IV SCH (06:17)
--- NOTE | 2017-10-11 07:25 | Progress Note ---
Assessment and Plan Assessment and plan: Acute Encephalopathy * Check CT brain Torades-Arrythemia Cardilogy following Acute on chronic systolic CHF. lasix iv. Coreg, on hold for now because of low BP. Will resume when BP improves Started on Milrinone infusion yesterday Diabetes mellitus Type 2. Fingerstick glucose QAC AND hs Hypotension. Improving BP, Coreg and Norvasc on hold. Acute Kidney Injury. Creatinine 2.7 today, worse than yesterday Nephrology following Atrial fibrillation with controlled ventricular response, On Coumadin. Coumadin on hold since adnission, because INR high 4.73 today Daily INR DVT prophylaxis. On Coumadin Full code status. Transfer to ICU for closer monitoring. Discussed with Rn Review and cardiology The high probability of a clinically significant, sudden or life threatening deterioration of the [cardiac, neurology] system(s) required my full and direct attention, intervention and personal management. The aggregate critical care time was [45] minutes. This time is in addition to time spent performing reported procedures but includes the following: [x] Data Review and interpretation [x] Patient assessment and monitoring of vital signs [x] Documentation [x] Medication orders and management History Interval history: Patient seen and examined this afternoon, confused, telemetry noted cardiac arrhythmia. patient not following commands. Hospitalist Physical - Physical exam Narrative exam: General:Not in acute distress, lying in bed, HEENT:Normocephalic, atraumatic Neck:supple,no JVD Lungs: Clear to auscultation, no rales, no wheeze Heart:S1 and S2 regular, no murmurs, rubs or gallop Abd: soft, non tender,non distended, normal bowel sounds Ext: Bilateral lower extremity edema, large blisters both lower ext, no clubbing or cyanosis Neuro: Confused, not following commands, very stuporus, moves all extremities, Skin:dark pigmentation, blisters - Constitutional Vitals: Temp Pulse Resp BP Pulse Ox 98.9 F 70 18 100/35 99 10/11/17 03:28 10/11/17 04:00 10/10/17 11:22 10/11/17 03:19 10/11/17 04:00 General appearance: Present: well-nourished Results - Labs CBC & Chem 7: 10/11/17 04:04 10/11/17 04:04 Labs: Laboratory Last Values WBC 18.8 K/mm3 (4.5-11.0) H 10/11/17 04:04 RBC 4.23 M/mm3 (3.65-5.03) 10/11/17 04:04 Hgb 11.9 gm/dl (10.1-14.3) 10/11/17 04:04 Hct 35.5 % (30.3-42.9) 10/11/17 04:04 MCV 84 fl (79-97) 10/11/17 04:04 MCH 28 pg (28-32) 10/11/17 04:04 MCHC 34 % (30-34) 10/11/17 04:04 RDW 16.5 % (13.2-15.2) H 10/11/17 04:04 Plt Count 86 K/mm3 (140-440) L 10/11/17 04:04 Add Manual Diff Complete 10/11/17 04:04 Total Counted 100 10/11/17 04:04 Seg Neutrophils % Wig Dresser 10/11/17 04:04 Seg Neuts % (Manual) 85.0 % (40.0-70.0) H 10/11/17 04:04 Band Neutrophils % 3.0 % 10/11/17 04:04 Lymphocytes % (Manual) 7.0 % (13.4-35.0) L 10/11/17 04:04 Reactive Lymphs % (Man) 0 % 10/11/17 04:04 Monocytes % (Manual) 5.0 % (0.0-7.3) 10/11/17 04:04 Eosinophils % (Manual) 0 % (0.0-4.3) 10/11/17 04:04 Basophils % (Manual) 0 % (0.0-1.8) 10/11/17 04:04 Metamyelocytes % 0 % 10/11/17 04:04 Myelocytes % 0 % 10/11/17 04:04 Promyelocytes % 0 % 10/11/17 04:04 Blast Cells % 0 % 10/11/17 04:04 Nucleated RBC % Not Reportable 10/11/17 04:04 Seg Neutrophils # Man 16.0 K/mm3 (1.8-7.7) H 10/11/17 04:04 Band Neutrophils # 0.6 K/mm3 10/11/17 04:04 Lymphocytes # (Manual) 1.3 K/mm3 (1.2-5.4) 10/11/17 04:04 Abs React Lymphs (Man) 0.0 K/mm3 10/11/17 04:04 Monocytes # (Manual) 0.9 K/mm3 (0.0-0.8) H 10/11/17 04:04 Eosinophils # (Manual) 0.0 K/mm3 (0.0-0.4) 10/11/17 04:04 Basophils # (Manual) 0.0 K/mm3 (0.0-0.1) 10/11/17 04:04 Metamyelocytes # 0.0 K/mm3 10/11/17 04:04 Myelocytes # 0.0 K/mm3 10/11/17 04:04 Promyelocytes # 0.0 K/mm3 10/11/17 04:04 Blast Cells # 0.0 K/mm3 10/11/17 04:04 WBC Morphology Not Reportable 10/11/17 04:04 Hypersegmented Neuts Not Reportable 10/11/17 04:04 Hyposegmented Neuts Not Reportable 10/11/17 04:04 Hypogranular Neuts Not Reportable 10/11/17 04:04 Smudge Cells Not Reportable 10/11/17 04:04 Toxic Granulation Not Reportable 10/11/17 04:04 Toxic Vacuolation Not Reportable 10/11/17 04:04 Dohle Bodies Not Reportable 10/11/17 04:04 Pelger-Huet Anomaly Not Reportable 10/11/17 04:04 Bennie Rods Not Reportable 10/11/17 04:04 Platelet Estimate Consistent w auto 10/11/17 04:04 Clumped Platelets Not Reportable 10/11/17 04:04 Plt Clumps, EDTA Not Reportable 10/11/17 04:04 Large Platelets Not Reportable 10/11/17 04:04 Giant Platelets Not Reportable 10/11/17 04:04 Platelet Satelliting Not Reportable 10/11/17 04:04 Plt Morphology Comment Not Reportable 10/11/17 04:04 RBC Morphology Not Reportable 10/11/17 04:04 Dimorphic RBCs Not Reportable 10/11/17 04:04 Polychromasia Not Reportable 10/11/17 04:04 Hypochromasia Not Reportable 10/11/17 04:04 Poikilocytosis Not Reportable 10/11/17 04:04 Anisocytosis Not Reportable 10/11/17 04:04 Microcytosis Few 10/11/17 04:04 Macrocytosis Not Reportable 10/11/17 04:04 Spherocytes Not Reportable 10/11/17 04:04 Pappenheimer Bodies Not Reportable 10/11/17 04:04 Sickle Cells Not Reportable 10/11/17 04:04 Target Cells Not Reportable 10/11/17 04:04 Tear Drop Cells Not Reportable 10/11/17 04:04 Ovalocytes Not Reportable 10/11/17 04:04 Helmet Cells Not Reportable 10/11/17 04:04 Lambert-Caspar Bodies Not Reportable 10/11/17 04:04 [place] Rings Not Reportable 10/11/17 04:04 Francisca Cells Not Reportable 10/11/17 04:04 Bite Cells Not Reportable 10/11/17 04:04 Crenated Cell Not Reportable 10/11/17 04:04 Elliptocytes Not Reportable 10/11/17 04:04 Acanthocytes (Spur) Not Reportable 10/11/17 04:04 Rouleaux Not Reportable 10/11/17 04:04 Hemoglobin C Crystals Not Reportable 10/11/17 04:04 Schistocytes Not Reportable 10/11/17 04:04 Malaria parasites Not Reportable 10/11/17 04:04 Earl Bodies Not Reportable 10/11/17 04:04 Hem Pathologist Commnt No 10/11/17 04:04 PT 52.0 Sec. (12.2-14.9) H 10/11/17 04:04 INR 5.23 (0.87-1.13) H* 10/11/17 04:04 APTT 51.7 Sec. (24.2-36.6) H 10/07/17 13:03 POC ABG pH 7.345 (7.35-7.45) L 10/07/17 14:23 POC ABG pCO2 34.9 (35-45) L 10/07/17 14:23 POC ABG pO2 61 (80-105) L 10/07/17 14:23 POC ABG HCO3 19.1 10/07/17 14:23 POC ABG Total CO2 20 10/07/17 14:23 POC ABG O2 Sat 90 10/07/17 14:23 POC ABG Base Excess -7 10/07/17 14:23 FiO2 21 % 10/07/17 14:23 Sodium 138 mmol/L (137-145) 10/11/17 04:04 Potassium 5.1 mmol/L (3.6-5.0) H 10/11/17 04:04 Chloride 102.5 mmol/L (98-107) 10/11/17 04:04 Carbon Dioxide 17 mmol/L (22-30) L 10/11/17 04:04 Anion Gap 24 mmol/L 10/11/17 04:04 BUN 95 mg/dL (7-17) H 10/10/17 06:13 Creatinine 3.3 mg/dL (0.7-1.2) H 10/11/17 04:04 Estimated GFR 16 ml/min 10/11/17 04:04 BUN/Creatinine Ratio 32 % 10/10/17 06:13 Glucose 105 mg/dL (65-100) H 10/10/17 06:13 POC Glucose 95 (70-105) 10/11/17 05:19 Hemoglobin A1c 6.6 % (4-6) H 10/07/17 13:03 Lactic Acid 2.20 mmol/L (0.7-2.0) H* 10/07/17 15:54 Calcium 11.7 mg/dL (8.4-10.2) H 10/11/17 04:04 Phosphorus 6.00 mg/dL (2.5-4.5) H 10/11/17 04:04 Magnesium 2.00 mg/dL (1.7-2.3) 10/09/17 12:36 Total Bilirubin 0.70 mg/dL (0.1-1.2) 10/08/17 08:37 AST 20 units/L (5-40) 10/08/17 08:37 ALT 12 units/L (7-56) 10/08/17 08:37 Alkaline Phosphatase 73 units/L (35-129) 10/08/17 08:37 Total Creatine Kinase 182 units/L (30-135) H 10/08/17 08:37 CK-MB (CK-2) 3.1 ng/mL (0.0-4.0) 10/08/17 08:37 CK-MB (CK-2) Rel Index 1.7 (0-4) 10/08/17 08:37 Troponin T 0.058 ng/mL (0.00-0.029) H 10/08/17 08:37 NT-Pro-B Natriuret Pep 93869 pg/mL (0-900) H 10/07/17 13:03 Total Protein 5.6 g/dL (6.3-8.2) L 10/08/17 08:37 Albumin 1.7 g/dL (3.9-5) L 10/08/17 08:37 Albumin/Globulin Ratio 0.4 % 10/08/17 08:37 Triglycerides 69 mg/dL (2-149) 10/07/17 13:03 Cholesterol 80 mg/dL (50-199) 10/07/17 13:03 LDL Cholesterol Direct 23 mg/dL (50-130) L 10/07/17 13:03 HDL Cholesterol 29 mg/dL (40-59) L 10/07/17 13:03 Cholesterol/HDL Ratio 2.75 % 10/07/17 13:03 TSH 0.996 mlU/mL (0.270-4.200) 10/09/17 12:36 Urine Color Astrid (Yellow) 10/07/17 14:36 Urine Turbidity Clear (Clear) 10/07/17 14:36 Urine pH 5.0 (5.0-7.0) 10/07/17 14:36 Ur Specific [place] 1.020 (1.003-1.030) 10/07/17 14:36 Urine Protein 30 mg/dl mg/dL (Negative) 10/07/17 14:36 Urine Glucose (UA) Neg mg/dL (Negative) 10/07/17 14:36 Urine Ketones Neg mg/dL (Negative) 10/07/17 14:36 Urine Blood Neg (Negative) 10/07/17 14:36 Urine Nitrite Neg (Negative) 10/07/17 14:36 Urine Bilirubin Neg (Negative) 10/07/17 14:36 Urine Urobilinogen 4.0 mg/dL (<2.0) 10/07/17 14:36 Ur Leukocyte Esterase Tr (Negative) 10/07/17 14:36 Urine WBC (Auto) 6.0 /HPF (0.0-6.0) 10/07/17 14:36 Urine RBC (Auto) 3.0 /HPF (0.0-6.0) 10/07/17 14:36 U Epithel Cells (Auto) 1.0 /HPF (0-13.0) 10/07/17 14:36 Urine Bacteria (Auto) 4+ /HPF (Negative) 10/07/17 14:36 Urine WBC Clumps 2+ /HPF 10/07/17 14:36 Urine Mucus 1+ /HPF 10/07/17 14:36 Urine Yeast (Budding) 1+ /HPF 10/07/17 14:36
--- NOTE | 2017-10-11 09:03 | Consultation ---
History of Present Illness Consult date: 10/04/17 Requesting physician: BELEN LAZARO Reason for consult: other (Torsades, requiring ICU monitoring, acute encephalopathy, coumadin toxicity) History of present illness: HISTORY PER MEDICAL RECORDS/CHART The patient is a 77-year-old female with a history of congestive heart failure who presents for evaluation of dyspnea and right shoulder pain. The patient reports dyspnea for the past one day, constant, moderate severity, exacerbated with activity, improved with sitting up. She has secondary complaint of Right shoulder pain for the past 2-3 days, achy in quality, severe, exacerbated with movement of the right arm. She denies trauma to the right shoulder. The patient also denies fever, chest pain, syncope, hemoptysis, unilateral leg swelling, oral contraceptive use, recent immobilization, history of DVT or PE, hx of recent cancer. Patient was admitted to the hospital and started on therapies for acute de- compensated heart failure, including milrinone infusion. Renal consult was placed for worsening renal function. I was called by the hospitalist service, the patient was obtunded with ventricular tacyhcardia and ICU admission and transfer was being requested. I have been consulted to facilitate the transfer to ICU level of care and for critical care during her ICU stay. Patient was seen and examined. Vitals, labs, medications, chart and imaging were reviewed. Patient was discussed in ICU-IDT rounds with care team Past History Past Medical History: atrial fib, heart failure Medications and Allergies Allergies Allergy/AdvReac Type Severity Reaction Status Date / Time codeine Allergy Unknown Verified 10/07/17 12:08 Home Medications Medication Instructions Recorded Confirmed Last Taken Type RX: AtorvaSTATin [Lipitor] 20 mg PO HS tablet 07/01/15 10/07/17 Unknown Rx RX: Furosemide [Lasix TAB] 40 mg PO QDAY tablet 07/01/15 10/07/17 Unknown Rx RX: Spironolactone [Aldactone] 12.5 mg PO QDAY tablet 07/01/15 10/07/17 Unknown Rx RX: amLODIPine [Norvasc] 10 mg PO DAILY tablet 07/01/15 10/07/17 Unknown Rx RX: Amiodarone [Cordarone 200 MG 200 mg PO DAILY #30 tablet 02/24/16 10/07/17 Unknown Rx TAB] RX: Aspirin EC [Aspirin Enteric 325 mg PO QDAY #30 tablet 02/24/16 10/07/17 Unknown Rx Coated TAB] RX: Carvedilol [Coreg] 6.25 mg PO BID #60 tablet 02/24/16 10/07/17 Unknown Rx RX: Insulin Aspart Prot/Aspart(Nf) 6 units SUB-Q BIDDIAB #1 vial 02/24/16 Unknown Rx [NovoLOG Mix 70/30 VIAL] RX: Insulin Aspart [NovoLOG 0 units SQ ACHS 03/09/16 10/07/17 Unknown History Flexpen] RX: Magnesium Oxide [Mag-Ox] 400 mg PO QDAY #10 tablet 03/10/16 10/07/17 Unknown Rx RX: Phosphorus #1 [K-Phos Neutral] 250 mg PO QID #40 tablet 03/10/16 10/07/17 Unknown Rx RX: Digoxin [Lanoxin] 0.125 mg PO DAILY 10/07/17 10/07/17 Unknown History RX: Omeprazole 40 mg PO DAILY 10/07/17 10/07/17 Unknown History RX: Warfarin [Coumadin] 3 mg PO QDAY 10/07/17 10/07/17 Unknown History RX: traMADol [Ultram 50 MG tab] 50 mg PO BID 10/07/17 10/07/17 Unknown History Active Meds: Active Medications Acetaminophen (Tylenol) 650 mg PO Q4H PRN PRN Reason: Pain MILD(1-3)/Fever >100.5/SAINI Amiodarone HCl (Cordarone) 200 mg PO BID [facility] Last Admin: 10/10/17 21:24 Dose: 200 mg Aspirin (Ecotrin) 325 mg PO QDAY [facility] Last Admin: 10/10/17 10:35 Dose: Not Given Atorvastatin Calcium (Lipitor) 20 mg PO [facility] Last Admin: 10/10/17 21:24 Dose: 20 mg Carvedilol (Coreg) 3.125 mg PO BID [facility] Last Admin: 10/11/17 03:19 Dose: 3.125 mg Famotidine (Pepcid) 20 mg IV DAILY [facility] Furosemide (Lasix) 40 mg IV 0600,1800 [facility] Last Admin: 10/11/17 06:17 Dose: Not Given Insulin Human Lispro (Humalog) 0 unit SUB-Q ACHS [facility]; Protocol Last Admin: 10/10/17 21:26 Dose: Not Given Morphine Sulfate (Morphine) 2 mg IV Q4H PRN PRN Reason: Pain, Moderate (4-6) Last Admin: 10/09/17 10:17 Dose: 2 mg Ondansetron HCl (Zofran) 4 mg IV Q8H PRN PRN Reason: Nausea And Vomiting Oxycodone/Acetaminophen (Percocet 5/325) 1 tab PO Q6H PRN PRN Reason: Pain, Moderate (4-6) Sodium Chloride (Sodium Chloride Flush Syringe 10 Ml) 10 ml IV BID [facility] Last Admin: 10/10/17 21:32 Dose: 10 ml Sodium Chloride (Sodium Chloride Flush Syringe 10 Ml) 10 ml IV PRN PRN PRN Reason: LINE FLUSH Tramadol HCl (Ultram) 50 mg PO BID [facility] Last Admin: 10/10/17 21:25 Dose: Not Given Warfarin Sodium (Coumadin Pharmacy To Dose) 1 each PO PKCONSULT [facility] Zolpidem Tartrate (Ambien) 5 mg PO QHS PRN PRN Reason: Insomnia Review of Systems ROS unobtainable: due to mental status Physical Examination Vital signs: Vital Signs Pulse Resp BP 60 20 82/31 10/07/17 11:46 10/07/17 11:46 10/07/17 11:46 General:In mild respiratory distress, Venturi mask at 50%, moans and groans, obese HEENT:Normocephalic, atraumatic Neck:supple,no JVD, oral mucosa with crusted blood Lungs: Clear to auscultation, no rales, no wheeze Heart:Irregular, with telemetry monitoring showing tacyarrthymia, atrial flutter with extopy, murmurs, rubs or gallop AIC left chest wall Abd: soft, non tender,non distended, normal bowel sounds Ext: Bilateral lower extremity edema, large blisters both lower extremtie, no clubbing or cyanosis Neuro: Confused, not following commands, very stuporous, moves all extremities( withdraws to pain) Skin:dark pigmentation, blisters Results - Laboratory Findings CBC and BMP: 10/13/17 04:00 10/13/17 10:52 ABG POC ABG pH 7.345 (7.35-7.45) L 10/07/17 14:23 POC ABG pCO2 34.9 (35-45) L 10/07/17 14:23 POC ABG pO2 61 (80-105) L 10/07/17 14:23 POC ABG HCO3 19.1 10/07/17 14:23 POC ABG Total CO2 20 10/07/17 14:23 POC ABG O2 Sat 90 10/07/17 14:23 PT/INR, D-dimer PT 52.0 Sec. (12.2-14.9) H 10/11/17 04:04 INR 5.23 (0.87-1.13) H* 10/11/17 04:04 Abnormal lab findings: Abnormal Labs 10/07/17 10/07/17 10/07/17 12:07 13:03 13:03 WBC 3.7 L MCH RDW 16.4 H Plt Count Seg Neuts % (Manual) Lymphocytes % (Manual) 11.0 L Monocytes % (Manual) 14.0 H Seg Neutrophils # Man 1.6 L Lymphocytes # (Manual) 0.4 L Monocytes # (Manual) PT INR APTT POC ABG pH POC ABG pCO2 POC ABG pO2 Sodium Potassium Carbon Dioxide BUN Creatinine Glucose POC Glucose 159 H Hemoglobin A1c Lactic Acid Calcium Phosphorus Total Creatine Kinase Troponin T NT-Pro-B Natriuret Pep 05477 H Total Protein Albumin LDL Cholesterol Direct HDL Cholesterol 10/07/17 10/07/17 10/07/17 13:03 13:03 13:03 WBC MCH RDW Plt Count Seg Neuts % (Manual) Lymphocytes % (Manual) Monocytes % (Manual) Seg Neutrophils # Man Lymphocytes # (Manual) Monocytes # (Manual) PT 37.5 H INR 3.49 H APTT 51.7 H POC ABG pH POC ABG pCO2 POC ABG pO2 Sodium Potassium Carbon Dioxide 21 L BUN 58 H Creatinine 2.6 H Glucose 134 H POC Glucose Hemoglobin A1c Lactic Acid 2.50 H* Calcium Phosphorus Total Creatine Kinase Troponin T 0.062 H NT-Pro-B Natriuret Pep Total Protein 5.7 L Albumin 2.1 L LDL Cholesterol Direct 23 L HDL Cholesterol 29 L 10/07/17 10/07/17 10/07/17 13:03 14:23 15:54 WBC MCH RDW Plt Count Seg Neuts % (Manual) Lymphocytes % (Manual) Monocytes % (Manual) Seg Neutrophils # Man Lymphocytes # (Manual) Monocytes # (Manual) PT INR APTT POC ABG pH 7.345 L POC ABG pCO2 34.9 L POC ABG pO2 61 L Sodium Potassium Carbon Dioxide BUN Creatinine Glucose POC Glucose Hemoglobin A1c 6.6 H Lactic Acid 2.20 H* Calcium Phosphorus Total Creatine Kinase Troponin T NT-Pro-B Natriuret Pep Total Protein Albumin LDL Cholesterol Direct HDL Cholesterol 10/08/17 10/08/17 10/08/17 05:58 06:28 06:45 WBC MCH RDW Plt Count Seg Neuts % (Manual) Lymphocytes % (Manual) Monocytes % (Manual) Seg Neutrophils # Man Lymphocytes # (Manual) Monocytes # (Manual) PT INR APTT POC ABG pH POC ABG pCO2 POC ABG pO2 Sodium Potassium Carbon Dioxide BUN Creatinine Glucose POC Glucose 56 L 62 L 65 L Hemoglobin A1c Lactic Acid Calcium Phosphorus Total Creatine Kinase Troponin T NT-Pro-B Natriuret Pep Total Protein Albumin LDL Cholesterol Direct HDL Cholesterol 10/08/17 10/08/17 10/08/17 08:37 08:37 08:37 WBC 3.3 L MCH RDW 16.8 H Plt Count Seg Neuts % (Manual) Lymphocytes % (Manual) 10.0 L Monocytes % (Manual) 9.0 H Seg Neutrophils # Man Lymphocytes # (Manual) 0.3 L Monocytes # (Manual) PT 49.9 H INR 4.97 H APTT POC ABG pH POC ABG pCO2 POC ABG pO2 Sodium 134 L Potassium 5.4 H Carbon Dioxide 21 L BUN 69 H Creatinine 2.5 H Glucose 109 H POC Glucose Hemoglobin A1c Lactic Acid Calcium Phosphorus Total Creatine Kinase Troponin T NT-Pro-B Natriuret Pep Total Protein 5.6 L Albumin 1.7 L LDL Cholesterol Direct HDL Cholesterol 10/08/17 10/08/17 10/08/17 08:37 17:34 21:35 WBC MCH RDW Plt Count Seg Neuts % (Manual) Lymphocytes % (Manual) Monocytes % (Manual) Seg Neutrophils # Man Lymphocytes # (Manual) Monocytes # (Manual) PT INR APTT POC ABG pH POC ABG pCO2 POC ABG pO2 Sodium Potassium Carbon Dioxide BUN Creatinine Glucose POC Glucose 114 H 110 H Hemoglobin A1c Lactic Acid Calcium Phosphorus Total Creatine Kinase 182 H Troponin T 0.058 H NT-Pro-B Natriuret Pep Total Protein Albumin LDL Cholesterol Direct HDL Cholesterol 10/09/17 10/09/17 10/09/17 05:15 07:31 07:31 WBC MCH RDW 16.7 H Plt Count Seg Neuts % (Manual) 71.0 H Lymphocytes % (Manual) 6.0 L Monocytes % (Manual) 8.0 H Seg Neutrophils # Man Lymphocytes # (Manual) 0.5 L Monocytes # (Manual) PT 48.0 H INR 4.73 H APTT POC ABG pH POC ABG pCO2 POC ABG pO2 Sodium Potassium Carbon Dioxide BUN Creatinine Glucose POC Glucose 125 H Hemoglobin A1c Lactic Acid Calcium Phosphorus Total Creatine Kinase Troponin T NT-Pro-B Natriuret Pep Total Protein Albumin LDL Cholesterol Direct HDL Cholesterol 10/09/17 10/09/17 10/09/17 07:31 11:20 16:11 WBC MCH RDW Plt Count Seg Neuts % (Manual) Lymphocytes % (Manual) Monocytes % (Manual) Seg Neutrophils # Man Lymphocytes # (Manual) Monocytes # (Manual) PT INR APTT POC ABG pH POC ABG pCO2 POC ABG pO2 Sodium Potassium Carbon Dioxide 21 L BUN 82 H Creatinine 2.7 H Glucose 109 H POC Glucose 106 H 123 H Hemoglobin A1c Lactic Acid Calcium 10.7 H Phosphorus 5.40 H Total Creatine Kinase Troponin T NT-Pro-B Natriuret Pep Total Protein Albumin LDL Cholesterol Direct HDL Cholesterol 10/09/17 10/10/17 10/10/17 21:23 06:13 06:13 WBC 13.5 H MCH 27 L RDW 16.7 H Plt Count 115 L Seg Neuts % (Manual) 79.0 H Lymphocytes % (Manual) 5.0 L Monocytes % (Manual) Seg Neutrophils # Man 10.7 H Lymphocytes # (Manual) 0.7 L Monocytes # (Manual) PT 47.5 H INR 4.67 H APTT POC ABG pH POC ABG pCO2 POC ABG pO2 Sodium Potassium Carbon Dioxide BUN Creatinine Glucose POC Glucose 117 H Hemoglobin A1c Lactic Acid Calcium Phosphorus Total Creatine Kinase Troponin T NT-Pro-B Natriuret Pep Total Protein Albumin LDL Cholesterol Direct HDL Cholesterol 10/10/17 10/10/17 10/11/17 06:13 21:24 04:04 WBC MCH RDW Plt Count Seg Neuts % (Manual) Lymphocytes % (Manual) Monocytes % (Manual) Seg Neutrophils # Man Lymphocytes # (Manual) Monocytes # (Manual) PT 52.0 H INR 5.23 H* APTT POC ABG pH POC ABG pCO2 POC ABG pO2 Sodium Potassium Carbon Dioxide 19 L BUN 95 H Creatinine 3.0 H Glucose 105 H POC Glucose 121 H Hemoglobin A1c Lactic Acid Calcium 11.8 H Phosphorus 5.60 H Total Creatine Kinase Troponin T NT-Pro-B Natriuret Pep Total Protein Albumin LDL Cholesterol Direct HDL Cholesterol 10/11/17 10/11/17 04:04 04:04 WBC 18.8 H MCH RDW 16.5 H Plt Count 86 L Seg Neuts % (Manual) 85.0 H Lymphocytes % (Manual) 7.0 L Monocytes % (Manual) Seg Neutrophils # Man 16.0 H Lymphocytes # (Manual) Monocytes # (Manual) 0.9 H PT INR APTT POC ABG pH POC ABG pCO2 POC ABG pO2 Sodium Potassium 5.1 H Carbon Dioxide 17 L BUN 120 H Creatinine 3.3 H Glucose POC Glucose Hemoglobin A1c Lactic Acid Calcium 11.7 H Phosphorus 6.00 H Total Creatine Kinase Troponin T NT-Pro-B Natriuret Pep Total Protein Albumin LDL Cholesterol Direct HDL Cholesterol - Diagnostic Findings Chest x-ray: image reviewed (Basilar atelectasis with cardiomegally. 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 Bibasilar Pneumonia vs Atelectasis Acute Encephalopathy,( toxic, metabolic) - CT brain negative Coumadin toxicity with supratherapeutic INR Malignant Ventricular Arrhythmia (Torsades) s/p AICD Acute CHF exacerbation Diabetes type II SUNDAR Atrial Fibrillation Thrombocytopenia Hypercalcemia - Aspiration precautions -Get ABG now -Keep NPO in view of encephalopathy -Renal consult,to evaluate for HD - continue glycemic control withh SSI -Nutritional consult for tube feeding, nutritional support - get blood cultures, CXR, urinanlysis and urine cultures. -Patient is currently afebrile but has leukocytosis/encephalopathy. Once cultures are obtained, empiric antibiotics -discontinue furosemide in view of worsening renal function - Hold coumadin -Get HIT panel in view of thrombocytopenia. Monitor for bleeding complications - initiate GI prophylaxis( Famotidine) -treat hypercalcemia with gentle hydration -Discussed with Cardiology service at the bed side..plan for interrogation of her ICD today - continue other care per attending / other consultants .. remains a FULL CODE Goals of care to be discussed with the family, as her prognosis is guarded. The high probability of a clinically significant, sudden or life threatening deterioration of the [cardiac, hematology, neurology] system(s) required my full and direct attention, intervention and personal management. The aggregate critical care time was [65] minutes without overlap. Time includes spent on; [x] Data Review and interpretation [x] Patient assessment and monitoring of vital signs [x] Documentation [x] Medication orders and management
[2017-10-11] MEDS ORDERED: PEPCID IV SCH (10:00)
[2017-10-11] MEDS: HumaLOG SUB-Q SCH ×3 (10:22→23:29)
[2017-10-11] MEDS: SODIUM CHLORIDE FLUSH SYRINGE 10 ML IV SCH ×3 (10:30→23:33)
--- NOTE | 2017-10-11 10:48 | Progress Note ---
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 Presence of indwelling cardiac defibrillator Chronic atrial fibrillation, rate control on warfarin for chronic anticoagulation due currently on hold d/t supratherapeutic INR. Polymorphic ventricular tachycardia normal TSH Recommendations: We will get a defibrillator interrogation. Monitor electrolytes. Continue amiodarone and beta blockers as tolerated. Subjective Date of service: 10/11/17 Principal diagnosis: acute renal failure Interval history: Patient remains lethargic, difficult to arouse. Frequent ectopy seen on telemetry monitoring. Objective Vital Signs Temp Pulse Pulse Resp BP Pulse Ox 10/11/17 08:00 98.2 F 10/11/17 07:36 99 10/11/17 04:00 70 99 10/11/17 03:28 98.9 F 10/11/17 03:19 79 100/35 10/11/17 00:16 99 H 83/39 10/11/17 00:00 75 99 10/10/17 23:36 97.7 F 10/10/17 21:00 94 H 100 10/10/17 19:37 98.9 F 10/10/17 19:28 100 10/10/17 15:53 97.8 F 10/10/17 15:15 94 10/10/17 11:22 98.3 F 18 137/47 - Physical Examination General: No Apparent Distress Cardiac: Positive: irregularly irregular - Labs and Meds Coagulation 10/11/17 Range/Units 04:04 PT 52.0 H (12.2-14.9) Sec. INR 5.23 H* (0.87-1.13) CBC 10/11/17 Range/Units 04:04 WBC 18.8 H (4.5-11.0) K/mm3 RBC 4.23 (3.65-5.03) M/mm3 Hgb 11.9 (10.1-14.3) gm/dl Hct 35.5 (30.3-42.9) % Plt Count 86 L (140-440) K/mm3 Comprehensive Metabolic Panel 10/11/17 Range/Units 04:04 Sodium 138 (137-145) mmol/L Potassium 5.1 H (3.6-5.0) mmol/L Chloride 102.5 (98-107) mmol/L Carbon Dioxide 17 L (22-30) mmol/L BUN 120 H (7-17) mg/dL Creatinine 3.3 H (0.7-1.2) mg/dL Calcium 11.7 H (8.4-10.2) mg/dL
--- NOTE | 2017-10-11 10:50 | Progress Note ---
Assessment and Plan Assessment and Plan Chronic Systolic CHF: Cardiology on board, echo on 10/08/17 showed EF 30-35%, on ASA, statin, low dose coreg, f/u recs Milrinone drip stopped due to cardiac arrhythmias Lasix on hold Acute kidney injury possibly cardiorenal syndrome/ATN, sepsis, hypotension, no obstruction, questionable CKD: Mid Right Kidney Simple Cyst: Hyperkalemia: Hypercalemia: Renal function reviewed, SCr level increased to 3.3 today, yesterday's SCr level was 3.0 Renal function continues to worsen, if no improvement in renal function by tomorrow, will consider Vas Cath placement and initiation of HD No family present at time of my examination Renally dose meds Place olson catheter Holding lasix Repeat CXR today Start on sodium bicarbonate 650 mg via NGT TID S/p Renal US on 10/08/17 showed no hydronephrosis, simple mid right kidney cyst, hypoechoic indeterminate structure adjacent to the superior margin of right kidney measures 2.4 cm, could arise exophytically from right kidney or could arise from right adrenal gland, recommend CT Abdomen. Abnormal dilitation of common bile duct, probable sludge within the gallbladder, possible small non- shadowing stone Will need CT Abdomen Pelvis without contrast for further evaluation of hypoechoic indeterminate structure adjacent to the superior margin of right kidney measures 2.4 cm Monitor labs daily Strict intake and output Renal plan d/w Dr Silver Continue supportive therapy Non-Anion Gap Metabolic Acidosis: Start on sodium bicarbonate 650 mg via NGT TID Atrial fibrillation: Cardiology on board, on amiodarone, coreg, f/u recs Supratherapeutic INR: Warfarin on hold Altered Mental Status: CT Head showed no acute CVA, intracranial bleed, or brain mass, stable small extra-axial left frontal calcified nodule most compatible with meningioma, stable postoperative change with encephalomalacia and volume loss in left frontal region Follow up Leukocytosis: Possible Sepsis: Obtain UA/urine culture Check Blood cultures 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 As per primary team Subjective Date of service: 10/11/17 Principal diagnosis: acute renal failure Interval history: Pt seen in ICU, lethargic, doesn't follow commands, no family at bedside Objective - Vital Signs Vital signs: Vital Signs - 12hr 10/10/17 10/11/17 10/11/17 23:36 00:00 00:16 Temperature 97.7 F Pulse Rate 99 H Pulse Rate [ 75 Apical] Blood Pressure 83/39 O2 Sat by Pulse 99 Oximetry 10/11/17 10/11/17 10/11/17 03:19 03:28 04:00 Temperature 98.9 F Pulse Rate 79 Pulse Rate [ 70 Apical] Blood Pressure 100/35 O2 Sat by Pulse 99 Oximetry 10/11/17 10/11/17 07:36 08:00 Temperature 98.2 F Pulse Rate Pulse Rate [ Apical] Blood Pressure O2 Sat by Pulse 99 Oximetry - General Appearance General appearance: other (lethargic, doesn't follow commands, confused) EENT: ATNC Neck: no JVD Respiratory: Present: Other (Lung sounds decreased bilaterally, unlabored) Cardiology: irregularly irregular, S1S2 Gastrointestinal: normoactive bowel sounds (nasogastric tube intact) Integumentary: other (bilateral lower extremity skin wounds with dressing in place) Neurologic: confused (unable to follow commands) Musculoskeletal: other (trace edema to both lower extremities) Psychiatric: other (patient doesn't answer questions/follow commands) - Lab 10/11/17 04:04 10/11/17 04:04 Most recent lab results Calcium 11.7 mg/dL (8.4-10.2) H 10/11/17 04:04 Phosphorus 6.00 mg/dL (2.5-4.5) H 10/11/17 04:04 Magnesium 2.30 mg/dL (1.7-2.3) 10/11/17 04:04
[2017-10-11] MEDS ORDERED: NACL 0.9% 1000 ML 1,000 ML IV SCH (12:00)
[2017-10-11] MEDS ORDERED: KIONEX PO ONE ×3 (12:00→20:00)
--- NOTE | 2017-10-11 12:36 | XRay Report ---
Single view chest: Compared to 10/07/17. History: Followup of chest shortness of breath and CHF. Findings: Cardiomegaly. Stable support system gradient bibasilar ill-defined densities without significant interval change. Normal CP angles. Impression: No significant interval change.
[2017-10-11 12:53] LABS: Bacteria,Urine 4+ /HPF (Negative); Bilirubin,Urine NEG (Negative); Blood,Urine NEG (Negative); Color,Urine Amber (Yellow); Mucus,Urine 2+ /HPF; Protein,Urine <15 mg/dL mg/dL (Negative)
[2017-10-11] MEDS ORDERED: SODIUM BICARBONATE FEEDTUBE SCH (14:00)
--- NOTE | 2017-10-11 14:22 | Progress Note ---
Assessment and Plan Assessment and plan: Acute Encephalopathy * Check CT brain-unremarkable Torades-Arrythemia Cardilogy following Acute on chronic systolic CHF. lasix iv. Coreg, on hold for now because of low BP. Will resume when BP improves Started on Milrinone infusion yesterday Diabetes mellitus Type 2. Fingerstick glucose QAC AND hs Hypotension. Improving BP, Coreg and Norvasc on hold. Acute Kidney Injury. Creatinine 2.7 today, worse than yesterday Nephrology following Atrial fibrillation with controlled ventricular response, On Coumadin. Coumadin on hold since adnission, because INR high 4.73 today Daily INR DVT prophylaxis. On Coumadin Full code status. Transfer to ICU for closer monitoring. Discussed with Superintendent [employer]ating [employer] and cardiology The high probability of a clinically significant, sudden or life threatening deterioration of the [cardiac, neurology] system(s) required my full and direct attention, intervention and personal management. The aggregate critical care time was [45] minutes. This time is in addition to time spent performing reported procedures but includes the following: [x] Data Review and interpretation [x] Patient assessment and monitoring of vital signs [x] Documentation [x] Medication orders and management History Interval history: Patient seen and examined this remains confused not following commands. Still with cardiac arrhythmia this morning. Hospitalist Physical - Physical exam Narrative exam: General:Not in acute distress, lying in bed, HEENT:Normocephalic, atraumatic Neck:supple,no JVD Lungs: Clear to auscultation, no rales, no wheeze Heart:S1 and S2 regular, no murmurs, rubs or gallop Abd: soft, non tender,non distended, normal bowel sounds Ext: Bilateral lower extremity edema, large blisters both lower ext, no clubbing or cyanosis Neuro: Confused, not following commands, very stuporus, moves all extremities, Skin:dark pigmentation, blisters - Constitutional Vitals: Temp Pulse Resp BP Pulse Ox 98.2 F 70 18 100/35 99 10/11/17 08:00 10/11/17 04:00 10/10/17 11:22 10/11/17 03:19 10/11/17 07:36 General appearance: Present: well-nourished Results - Labs CBC & Chem 7: 10/11/17 04:04 10/11/17 04:04 Labs: Laboratory Last Values WBC 18.8 K/mm3 (4.5-11.0) H 10/11/17 04:04 RBC 4.23 M/mm3 (3.65-5.03) 10/11/17 04:04 Hgb 11.9 gm/dl (10.1-14.3) 10/11/17 04:04 Hct 35.5 % (30.3-42.9) 10/11/17 04:04 MCV 84 fl (79-97) 10/11/17 04:04 MCH 28 pg (28-32) 10/11/17 04:04 MCHC 34 % (30-34) 10/11/17 04:04 RDW 16.5 % (13.2-15.2) H 10/11/17 04:04 Plt Count 86 K/mm3 (140-440) L 10/11/17 04:04 Add Manual Diff Complete 10/11/17 04:04 Total Counted 100 10/11/17 04:04 Seg Neutrophils % Top Lift Compresser 10/11/17 04:04 Seg Neuts % (Manual) 85.0 % (40.0-70.0) H 10/11/17 04:04 Band Neutrophils % 3.0 % 10/11/17 04:04 Lymphocytes % (Manual) 7.0 % (13.4-35.0) L 10/11/17 04:04 Reactive Lymphs % (Man) 0 % 10/11/17 04:04 Monocytes % (Manual) 5.0 % (0.0-7.3) 10/11/17 04:04 Eosinophils % (Manual) 0 % (0.0-4.3) 10/11/17 04:04 Basophils % (Manual) 0 % (0.0-1.8) 10/11/17 04:04 Metamyelocytes % 0 % 10/11/17 04:04 Myelocytes % 0 % 10/11/17 04:04 Promyelocytes % 0 % 10/11/17 04:04 Blast Cells % 0 % 10/11/17 04:04 Nucleated RBC % Not Reportable 10/11/17 04:04 Seg Neutrophils # Man 16.0 K/mm3 (1.8-7.7) H 10/11/17 04:04 Band Neutrophils # 0.6 K/mm3 10/11/17 04:04 Lymphocytes # (Manual) 1.3 K/mm3 (1.2-5.4) 10/11/17 04:04 Abs React Lymphs (Man) 0.0 K/mm3 10/11/17 04:04 Monocytes # (Manual) 0.9 K/mm3 (0.0-0.8) H 10/11/17 04:04 Eosinophils # (Manual) 0.0 K/mm3 (0.0-0.4) 10/11/17 04:04 Basophils # (Manual) 0.0 K/mm3 (0.0-0.1) 10/11/17 04:04 Metamyelocytes # 0.0 K/mm3 10/11/17 04:04 Myelocytes # 0.0 K/mm3 10/11/17 04:04 Promyelocytes # 0.0 K/mm3 10/11/17 04:04 Blast Cells # 0.0 K/mm3 10/11/17 04:04 WBC Morphology Not Reportable 10/11/17 04:04 Hypersegmented Neuts Not Reportable 10/11/17 04:04 Hyposegmented Neuts Not Reportable 10/11/17 04:04 Hypogranular Neuts Not Reportable 10/11/17 04:04 Smudge Cells Not Reportable 10/11/17 04:04 Toxic Granulation Not Reportable 10/11/17 04:04 Toxic Vacuolation Not Reportable 10/11/17 04:04 Dohle Bodies Not Reportable 10/11/17 04:04 Pelger-Huet Anomaly Not Reportable 10/11/17 04:04 Bennie Rods Not Reportable 10/11/17 04:04 Platelet Estimate Consistent w auto 10/11/17 04:04 Clumped Platelets Not Reportable 10/11/17 04:04 Plt Clumps, EDTA Not Reportable 10/11/17 04:04 Large Platelets Not Reportable 10/11/17 04:04 Giant Platelets Not Reportable 10/11/17 04:04 Platelet Satelliting Not Reportable 10/11/17 04:04 Plt Morphology Comment Not Reportable 10/11/17 04:04 RBC Morphology Not Reportable 10/11/17 04:04 Dimorphic RBCs Not Reportable 10/11/17 04:04 Polychromasia Not Reportable 10/11/17 04:04 Hypochromasia Not Reportable 10/11/17 04:04 Poikilocytosis Not Reportable 10/11/17 04:04 Anisocytosis Not Reportable 10/11/17 04:04 Microcytosis Few 10/11/17 04:04 Macrocytosis Not Reportable 10/11/17 04:04 Spherocytes Not Reportable 10/11/17 04:04 Pappenheimer Bodies Not Reportable 10/11/17 04:04 Sickle Cells Not Reportable 10/11/17 04:04 Target Cells Not Reportable 10/11/17 04:04 Tear Drop Cells Not Reportable 10/11/17 04:04 Ovalocytes Not Reportable 10/11/17 04:04 Helmet Cells Not Reportable 10/11/17 04:04 Lambert-Henrietta Bodies Not Reportable 10/11/17 04:04 Stuart Rings Not Reportable 10/11/17 04:04 Francisca Cells Not Reportable 10/11/17 04:04 Bite Cells Not Reportable 10/11/17 04:04 Crenated Cell Not Reportable 10/11/17 04:04 Elliptocytes Not Reportable 10/11/17 04:04 Acanthocytes (Spur) Not Reportable 10/11/17 04:04 Rouleaux Not Reportable 10/11/17 04:04 Hemoglobin C Crystals Not Reportable 10/11/17 04:04 Schistocytes Not Reportable 10/11/17 04:04 Malaria parasites Not Reportable 10/11/17 04:04 Earl Bodies Not Reportable 10/11/17 04:04 Hem Pathologist Commnt No 10/11/17 04:04 PT 52.0 Sec. (12.2-14.9) H 10/11/17 04:04 INR 5.23 (0.87-1.13) H* 10/11/17 04:04 APTT 51.7 Sec. (24.2-36.6) H 10/07/17 13:03 POC ABG pH 7.442 (7.35-7.45) 10/11/17 11:31 POC ABG pCO2 32.2 (35-45) L 10/11/17 11:31 POC ABG pO2 37 (80-105) L 10/11/17 11:31 POC ABG HCO3 22.0 10/11/17 11:31 POC ABG Total CO2 23 10/11/17 11:31 POC ABG O2 Sat 73 10/11/17 11:31 POC ABG Base Excess -2 10/11/17 11:31 FiO2 35 % 10/11/17 11:31 Sodium 138 mmol/L (137-145) 10/11/17 04:04 Potassium 5.1 mmol/L (3.6-5.0) H 10/11/17 04:04 Chloride 102.5 mmol/L (98-107) 10/11/17 04:04 Carbon Dioxide 17 mmol/L (22-30) L 10/11/17 04:04 Anion Gap 24 mmol/L 10/11/17 04:04 BUN 120 mg/dL (7-17) H 10/11/17 04:04 Creatinine 3.3 mg/dL (0.7-1.2) H 10/11/17 04:04 Estimated GFR 16 ml/min 10/11/17 04:04 BUN/Creatinine Ratio 36 % 10/11/17 04:04 Glucose 105 mg/dL (65-100) H 10/11/17 04:04 POC Glucose 96 (70-105) 10/11/17 07:54 Hemoglobin A1c 6.6 % (4-6) H 10/07/17 13:03 Lactic Acid 2.20 mmol/L (0.7-2.0) H* 10/07/17 15:54 Calcium 11.7 mg/dL (8.4-10.2) H 10/11/17 04:04 Phosphorus 6.00 mg/dL (2.5-4.5) H 10/11/17 04:04 Magnesium 2.30 mg/dL (1.7-2.3) 10/11/17 04:04 Total Bilirubin 0.70 mg/dL (0.1-1.2) 10/08/17 08:37 AST 20 units/L (5-40) 10/08/17 08:37 ALT 12 units/L (7-56) 10/08/17 08:37 Alkaline Phosphatase 73 units/L (35-129) 10/08/17 08:37 Total Creatine Kinase 182 units/L (30-135) H 10/08/17 08:37 CK-MB (CK-2) 3.1 ng/mL (0.0-4.0) 10/08/17 08:37 CK-MB (CK-2) Rel Index 1.7 (0-4) 10/08/17 08:37 Troponin T 0.058 ng/mL (0.00-0.029) H 10/08/17 08:37 NT-Pro-B Natriuret Pep 12044 pg/mL (0-900) H 10/07/17 13:03 Total Protein 5.6 g/dL (6.3-8.2) L 10/08/17 08:37 Albumin 1.7 g/dL (3.9-5) L 10/08/17 08:37 Albumin/Globulin Ratio 0.4 % 10/08/17 08:37 Triglycerides 69 mg/dL (2-149) 10/07/17 13:03 Cholesterol 80 mg/dL (50-199) 10/07/17 13:03 LDL Cholesterol Direct 23 mg/dL (50-130) L 10/07/17 13:03 HDL Cholesterol 29 mg/dL (40-59) L 10/07/17 13:03 Cholesterol/HDL Ratio 2.75 % 10/07/17 13:03 TSH 0.996 mlU/mL (0.270-4.200) 10/09/17 12:36 Urine Color Astrid (Yellow) 10/11/17 10:50 Urine Turbidity Clear (Clear) 10/11/17 10:50 Urine pH 5.0 (5.0-7.0) 10/11/17 10:50 Ur Specific [place] 1.016 (1.003-1.030) 10/11/17 10:50 Urine Protein <15 mg/dl mg/dL (Negative) 10/11/17 10:50 Urine Glucose (UA) Neg mg/dL (Negative) 10/11/17 10:50 Urine Ketones Neg mg/dL (Negative) 10/11/17 10:50 Urine Blood Neg (Negative) 10/11/17 10:50 Urine Nitrite Neg (Negative) 10/11/17 10:50 Urine Bilirubin Neg (Negative) 10/11/17 10:50 Urine Urobilinogen 2.0 mg/dL (<2.0) 10/11/17 10:50 Ur Leukocyte Esterase Sm (Negative) 10/11/17 10:50 Urine WBC (Auto) 16.0 /HPF (0.0-6.0) H 10/11/17 10:50 Urine RBC (Auto) 3.0 /HPF (0.0-6.0) 10/11/17 10:50 U Epithel Cells (Auto) 1.0 /HPF (0-13.0) 10/11/17 10:50 Urine Bacteria (Auto) 4+ /HPF (Negative) 10/11/17 10:50 Urine WBC Clumps 2+ /HPF 10/07/17 14:36 Urine Mucus 2+ /HPF 10/11/17 10:50 Urine Yeast (Budding) 1+ /HPF 10/07/17 14:36
[2017-10-11] MEDS: CORDARONE PO SCH ×2 (19:56→23:27)
[2017-10-11] MEDS: ECOTRIN PO SCH (19:57)
[2017-10-11] MEDS: SODIUM BICARBONATE FEEDTUBE SCH (23:32)
[2017-10-11] MEDS: PEPCID IV SCH (23:35)
[2017-10-12] MEDS: HumaLOG SUB-Q SCH ×3 (08:15→16:57)
[2017-10-12] MEDS: COREG PO SCH ×2 (09:21→21:24)
[2017-10-12] MEDS: SODIUM BICARBONATE FEEDTUBE SCH ×3 (09:22→21:27)
[2017-10-12] MEDS: CORDARONE PO SCH ×2 (09:22→21:27)
[2017-10-12] MEDS: ECOTRIN PO SCH (09:23)
[2017-10-12] MEDS: PEPCID IV SCH (09:24)
--- NOTE | 2017-10-12 09:58 | Progress Note ---
Assessment and Plan Chronic Systolic CHF: Cardiology on board, echo on 10/08/17 showed EF 30-35%, on ASA, statin Milrinone drip stopped due to cardiac arrhythmias Lasix on hold Acute kidney injury possibly cardiorenal syndrome/ATN, sepsis, hypotension, no obstruction, questionable CKD: Mid Right Kidney Simple Cyst: Hyperkalemia: Hypercalemia: labs are pending this AM, but patient is oliguric with AMS, BUN yesterday was 120 BMP ordered stat, vascular consult was placed for preparation of PROCESS [employer]ID[employer] ENGINEER initiation HD today after confirming BMP and vascath placement Non-Anion Gap Metabolic Acidosis: on sodium bicarb supplement Atrial fibrillation: Cardiology on board, on amiodarone Supratherapeutic INR: Warfarin on hold Altered Mental Status: CT Head showed no acute CVA, intracranial bleed, or brain mass, stable small extra-axial left frontal calcified nodule most compatible with meningioma, stable postoperative change with encephalomalacia and volume loss in left frontal region Follow up 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 As per primary team Subjective Date of service: 10/12/17 Principal diagnosis: acute renal failure Interval history: patient is lethargic, on face mask, no family at bedside Objective - Vital Signs Vital signs: Vital Signs - 12hr 10/11/17 10/11/17 10/11/17 22:00 22:52 23:01 Temperature 99 F Pulse Rate 84 65 Pulse Rate [ Apical] Pulse Rate [ Right Radial] Respiratory 19 21 Rate Blood Pressure 108/60 81/38 O2 Sat by Pulse 94 99 Oximetry 10/11/17 10/12/17 10/12/17 23:27 00:00 01:00 Temperature Pulse Rate 81 72 70 Pulse Rate [ 81 Apical] Pulse Rate [ 80 Right Radial] Respiratory 25 H 20 Rate Blood Pressure 136/48 116/54 108/48 O2 Sat by Pulse 99 99 Oximetry 10/12/17 10/12/17 10/12/17 02:00 03:00 04:00 Temperature 98.7 F Pulse Rate 67 67 Pulse Rate [ Apical] Pulse Rate [ Right Radial] Respiratory 23 26 H 24 Rate Blood Pressure 112/46 107/47 O2 Sat by Pulse 98 99 Oximetry 10/12/17 10/12/17 10/12/17 04:01 05:00 06:00 Temperature Pulse Rate 69 71 71 Pulse Rate [ Apical] Pulse Rate [ Right Radial] Respiratory 23 26 H 31 H Rate Blood Pressure 107/47 98/43 109/61 O2 Sat by Pulse 97 96 95 Oximetry 10/12/17 10/12/17 10/12/17 07:00 08:00 08:19 Temperature 97.4 F L Pulse Rate 76 67 Pulse Rate [ Apical] Pulse Rate [ Right Radial] Respiratory 22 21 Rate Blood Pressure 112/62 102/52 O2 Sat by Pulse 97 100 95 Oximetry 10/12/17 09:21 Temperature Pulse Rate 69 Pulse Rate [ Apical] Pulse Rate [ Right Radial] Respiratory Rate Blood Pressure 99/54 O2 Sat by Pulse Oximetry - General Appearance General appearance: appears stated age, cachectic EENT: ATNC, PERRL, mucous membranes dry Neck: no JVD, no carotid bruit Respiratory: Present: Decreased Breath Sounds Cardiology: irregular Gastrointestinal: normoactive bowel sounds, no tenderness, no distended Integumentary: no rash, warm and dry Neurologic: other (does not follow commands) Musculoskeletal: other (trace pitting edema in BLE) Psychiatric: other (does not answer questions) - Lab 10/11/17 04:04 10/11/17 04:04 Most recent lab results Calcium 11.7 mg/dL (8.4-10.2) H 10/11/17 04:04 Phosphorus 6.00 mg/dL (2.5-4.5) H 10/11/17 04:04 Magnesium 2.30 mg/dL (1.7-2.3) 10/11/17 04:04
[2017-10-12] MEDS ORDERED: MAG-OX PO SCH (10:00)
[2017-10-12 10:19] LABS: Hematocrit 37.3 % (30.3-42.9); Hemoglobin 12.1 gm/dl (10.1-14.3); Mean Corpuscular HGB Conc 32 % (30-34); Mean Corpuscular Hemoglobin 27 pg (28-32); Mean Corpuscular Volume 84 fl (79-97); Platelet Count 89 K/mm3 (140-440); Red Blood Count 4.43 M/mm3 (3.65-5.03); Red Cell Distribution Width 16.8 % (13.2-15.2)
--- NOTE | 2017-10-12 10:30 | Progress Note ---
Assessment and Plan Acute Hypoxemic Respiratory Failure Bibasilar Pneumonia vs Atelectasis Acute Encephalopathy Malignant Ventricukar Arrythmia (Torsades) Acute CHF exacerbation Diabetes type II SUNDAR (now on Dialysis) Sepsis Syndrome Atrial Fibrillation - To begin dialysis and hopefully with electrolyte and azotemia improvement dysrythmia's improve - CT brain negative - Deploy BIPAP for ventilatory support during dialysis as well as for alveolar recruitment and support while asleep - get lactate and CRP levels to assist with anti-infective therapy and de- escalation decisions - Milrinone drip adjustment per cardiology - continue glycemic control withh SSI - Aspiration precautions - get ID consult (growing gram +ves in chains) - begin empiric Rocephin and vancomycin - conservative volume management strategies re: CHF - continue to hold coumadin +/- vitamin K (will give oral Vit K today) - continue GI prophylaxis - continue other care per attending / other consultants .. remains a FULL CODE The high probability of a clinically significant, sudden or life threatening deterioration of the [cardiac, neurology] system(s) required my full and direct attention, intervention and personal management. The aggregate critical care time was [40] minutes without overlap. Time includes spent on; [x] Data Review and interpretation [x] Patient assessment and monitoring of vital signs [x] Documentation [x] Medication orders and management Subjective Date of service: 10/12/17 Principal diagnosis: Acute Hypoxemic Resp Failure; SUNDAR; Acute Encephalopathy; Torsades Interval history: Patient is seen today for: Torsades; SUNDAR Seen and examined at bedside; 24hour events reviewed; nursing and respiratory care staff consulted; no adverse overnight events reported to me; resting in bed ; remains encephalopathic; to begin dialysis today; INR remains supratherapeutic but no obvious active bleeding Objective Vital Signs - 12hr 10/11/17 10/11/17 10/11/17 22:52 23:01 23:27 Temperature 99 F Pulse Rate 65 81 Pulse Rate [ Apical] Pulse Rate [ Right Radial] Respiratory 21 Rate Blood Pressure 81/38 136/48 O2 Sat by Pulse 99 Oximetry 10/12/17 10/12/17 10/12/17 00:00 01:00 02:00 Temperature Pulse Rate 72 70 67 Pulse Rate [ 81 Apical] Pulse Rate [ 80 Right Radial] Respiratory 25 H 20 23 Rate Blood Pressure 116/54 108/48 112/46 O2 Sat by Pulse 99 99 98 Oximetry 10/12/17 10/12/17 10/12/17 03:00 04:00 04:01 Temperature 98.7 F Pulse Rate 67 69 Pulse Rate [ Apical] Pulse Rate [ Right Radial] Respiratory 26 H 24 23 Rate Blood Pressure 107/47 107/47 O2 Sat by Pulse 99 97 Oximetry 10/12/17 10/12/17 10/12/17 05:00 06:00 07:00 Temperature Pulse Rate 71 71 76 Pulse Rate [ Apical] Pulse Rate [ Right Radial] Respiratory 26 H 31 H 22 Rate Blood Pressure 98/43 109/61 112/62 O2 Sat by Pulse 96 95 97 Oximetry 10/12/17 10/12/17 10/12/17 08:00 08:19 09:01 Temperature 97.4 F L Pulse Rate 67 75 Pulse Rate [ Apical] Pulse Rate [ Right Radial] Respiratory 21 23 Rate Blood Pressure 102/52 99/54 O2 Sat by Pulse 100 95 99 Oximetry 10/12/17 10/12/17 09:21 10:00 Temperature Pulse Rate 69 59 L Pulse Rate [ Apical] Pulse Rate [ Right Radial] Respiratory 22 Rate Blood Pressure 99/54 99/54 O2 Sat by Pulse 99 Oximetry Constitutional: lethargic, appears uncomfortable, other (elderly looking AAF; normocephalic) Eyes: non-icteric ENT: oropharynx moist, other (30% Venti Mask) Neck: supple, no lymphadenopathy, no JVD, other (no thyromegaly) Effort: mildly labored Ascultation: Bilateral: diminished breath sounds, rales Percussion: Bilateral: not dull Cardiovascular: irregular rhythm, murmur noted, other (no rubs) Gastrointestinal: normoactive bowel sounds, soft, non-tender, non-distended, other (No palpable HSM) Integumentary: rash, other (welts over skin of feet and legs) Extremities: no cyanosis, pulses normal, no ischemia or petechiae, edema (2+) Neurologic: unable to assess Psychiatric: other (encephalopathic) CBC and BMP: 10/12/17 06:00 10/12/17 06:00 ABG, PT/INR, D-dimer: ABG POC ABG pH 7.442 (7.35-7.45) 10/11/17 11:31 POC ABG pCO2 32.2 (35-45) L 10/11/17 11:31 POC ABG pO2 37 (80-105) L 10/11/17 11:31 POC ABG HCO3 22.0 10/11/17 11:31 POC ABG Total CO2 23 10/11/17 11:31 POC ABG O2 Sat 73 10/11/17 11:31 PT/INR, D-dimer PT 53.3 Sec. (12.2-14.9) H 10/12/17 06:00 INR 5.23 (0.87-1.13) H* 10/11/17 04:04 Abnormal lab findings: Abnormal Labs 10/07/17 10/07/17 10/07/17 12:07 13:03 13:03 WBC 3.7 L MCH RDW 16.4 H Plt Count Seg Neuts % (Manual) Lymphocytes % (Manual) 11.0 L Monocytes % (Manual) 14.0 H Seg Neutrophils # Man 1.6 L Lymphocytes # (Manual) 0.4 L Monocytes # (Manual) PT INR APTT POC ABG pH POC ABG pCO2 POC ABG pO2 Sodium Potassium Carbon Dioxide BUN Creatinine Glucose POC Glucose 159 H Hemoglobin A1c Lactic Acid Calcium Phosphorus Total Creatine Kinase Troponin T NT-Pro-B Natriuret Pep 06901 H Total Protein Albumin LDL Cholesterol Direct HDL Cholesterol Urine WBC (Auto) 10/07/17 10/07/17 10/07/17 13:03 13:03 13:03 WBC MCH RDW Plt Count Seg Neuts % (Manual) Lymphocytes % (Manual) Monocytes % (Manual) Seg Neutrophils # Man Lymphocytes # (Manual) Monocytes # (Manual) PT 37.5 H INR 3.49 H APTT 51.7 H POC ABG pH POC ABG pCO2 POC ABG pO2 Sodium Potassium Carbon Dioxide 21 L BUN 58 H Creatinine 2.6 H Glucose 134 H POC Glucose Hemoglobin A1c Lactic Acid 2.50 H* Calcium Phosphorus Total Creatine Kinase Troponin T 0.062 H NT-Pro-B Natriuret Pep Total Protein 5.7 L Albumin 2.1 L LDL Cholesterol Direct 23 L HDL Cholesterol 29 L Urine WBC (Auto) 10/07/17 10/07/17 10/07/17 13:03 14:23 15:54 WBC MCH RDW Plt Count Seg Neuts % (Manual) Lymphocytes % (Manual) Monocytes % (Manual) Seg Neutrophils # Man Lymphocytes # (Manual) Monocytes # (Manual) PT INR APTT POC ABG pH 7.345 L POC ABG pCO2 34.9 L POC ABG pO2 61 L Sodium Potassium Carbon Dioxide BUN Creatinine Glucose POC Glucose Hemoglobin A1c 6.6 H Lactic Acid 2.20 H* Calcium Phosphorus Total Creatine Kinase Troponin T NT-Pro-B Natriuret Pep Total Protein Albumin LDL Cholesterol Direct HDL Cholesterol Urine WBC (Auto) 10/08/17 10/08/17 10/08/17 05:58 06:28 06:45 WBC MCH RDW Plt Count Seg Neuts % (Manual) Lymphocytes % (Manual) Monocytes % (Manual) Seg Neutrophils # Man Lymphocytes # (Manual) Monocytes # (Manual) PT INR APTT POC ABG pH POC ABG pCO2 POC ABG pO2 Sodium Potassium Carbon Dioxide BUN Creatinine Glucose POC Glucose 56 L 62 L 65 L Hemoglobin A1c Lactic Acid Calcium Phosphorus Total Creatine Kinase Troponin T NT-Pro-B Natriuret Pep Total Protein Albumin LDL Cholesterol Direct HDL Cholesterol Urine WBC (Auto) 10/08/17 10/08/17 10/08/17 08:37 08:37 08:37 WBC 3.3 L MCH RDW 16.8 H Plt Count Seg Neuts % (Manual) Lymphocytes % (Manual) 10.0 L Monocytes % (Manual) 9.0 H Seg Neutrophils # Man Lymphocytes # (Manual) 0.3 L Monocytes # (Manual) PT 49.9 H INR 4.97 H APTT POC ABG pH POC ABG pCO2 POC ABG pO2 Sodium 134 L Potassium 5.4 H Carbon Dioxide 21 L BUN 69 H Creatinine 2.5 H Glucose 109 H POC Glucose Hemoglobin A1c Lactic Acid Calcium Phosphorus Total Creatine Kinase Troponin T NT-Pro-B Natriuret Pep Total Protein 5.6 L Albumin 1.7 L LDL Cholesterol Direct HDL Cholesterol Urine WBC (Auto) 10/08/17 10/08/17 10/08/17 08:37 17:34 21:35 WBC MCH RDW Plt Count Seg Neuts % (Manual) Lymphocytes % (Manual) Monocytes % (Manual) Seg Neutrophils # Man Lymphocytes # (Manual) Monocytes # (Manual) PT INR APTT POC ABG pH POC ABG pCO2 POC ABG pO2 Sodium Potassium Carbon Dioxide BUN Creatinine Glucose POC Glucose 114 H 110 H Hemoglobin A1c Lactic Acid Calcium Phosphorus Total Creatine Kinase 182 H Troponin T 0.058 H NT-Pro-B Natriuret Pep Total Protein Albumin LDL Cholesterol Direct HDL Cholesterol Urine WBC (Auto) 10/09/17 10/09/17 10/09/17 05:15 07:31 07:31 WBC MCH RDW 16.7 H Plt Count Seg Neuts % (Manual) 71.0 H Lymphocytes % (Manual) 6.0 L Monocytes % (Manual) 8.0 H Seg Neutrophils # Man Lymphocytes # (Manual) 0.5 L Monocytes # (Manual) PT 48.0 H INR 4.73 H APTT POC ABG pH POC ABG pCO2 POC ABG pO2 Sodium Potassium Carbon Dioxide BUN Creatinine Glucose POC Glucose 125 H Hemoglobin A1c Lactic Acid Calcium Phosphorus Total Creatine Kinase Troponin T NT-Pro-B Natriuret Pep Total Protein Albumin LDL Cholesterol Direct HDL Cholesterol Urine WBC (Auto) 10/09/17 10/09/17 10/09/17 07:31 11:20 16:11 WBC MCH RDW Plt Count Seg Neuts % (Manual) Lymphocytes % (Manual) Monocytes % (Manual) Seg Neutrophils # Man Lymphocytes # (Manual) Monocytes # (Manual) PT INR APTT POC ABG pH POC ABG pCO2 POC ABG pO2 Sodium Potassium Carbon Dioxide 21 L BUN 82 H Creatinine 2.7 H Glucose 109 H POC Glucose 106 H 123 H Hemoglobin A1c Lactic Acid Calcium 10.7 H Phosphorus 5.40 H Total Creatine Kinase Troponin T NT-Pro-B Natriuret Pep Total Protein Albumin LDL Cholesterol Direct HDL Cholesterol Urine WBC (Auto) 10/09/17 10/10/17 10/10/17 21:23 06:13 06:13 WBC 13.5 H MCH 27 L RDW 16.7 H Plt Count 115 L Seg Neuts % (Manual) 79.0 H Lymphocytes % (Manual) 5.0 L Monocytes % (Manual) Seg Neutrophils # Man 10.7 H Lymphocytes # (Manual) 0.7 L Monocytes # (Manual) PT 47.5 H INR 4.67 H APTT POC ABG pH POC ABG pCO2 POC ABG pO2 Sodium Potassium Carbon Dioxide BUN Creatinine Glucose POC Glucose 117 H Hemoglobin A1c Lactic Acid Calcium Phosphorus Total Creatine Kinase Troponin T NT-Pro-B Natriuret Pep Total Protein Albumin LDL Cholesterol Direct HDL Cholesterol Urine WBC (Auto) 10/10/17 10/10/17 10/11/17 06:13 21:24 04:04 WBC MCH RDW Plt Count Seg Neuts % (Manual) Lymphocytes % (Manual) Monocytes % (Manual) Seg Neutrophils # Man Lymphocytes # (Manual) Monocytes # (Manual) PT 52.0 H INR 5.23 H* APTT POC ABG pH POC ABG pCO2 POC ABG pO2 Sodium Potassium Carbon Dioxide 19 L BUN 95 H Creatinine 3.0 H Glucose 105 H POC Glucose 121 H Hemoglobin A1c Lactic Acid Calcium 11.8 H Phosphorus 5.60 H Total Creatine Kinase Troponin T NT-Pro-B Natriuret Pep Total Protein Albumin LDL Cholesterol Direct HDL Cholesterol Urine WBC (Auto) 10/11/17 10/11/17 10/11/17 04:04 04:04 10:50 WBC 18.8 H MCH RDW 16.5 H Plt Count 86 L Seg Neuts % (Manual) 85.0 H Lymphocytes % (Manual) 7.0 L Monocytes % (Manual) Seg Neutrophils # Man 16.0 H Lymphocytes # (Manual) Monocytes # (Manual) 0.9 H PT INR APTT POC ABG pH POC ABG pCO2 POC ABG pO2 Sodium Potassium 5.1 H Carbon Dioxide 17 L BUN 120 H Creatinine 3.3 H Glucose 105 H POC Glucose Hemoglobin A1c Lactic Acid Calcium 11.7 H Phosphorus 6.00 H Total Creatine Kinase Troponin T NT-Pro-B Natriuret Pep Total Protein Albumin LDL Cholesterol Direct HDL Cholesterol Urine WBC (Auto) 16.0 H 10/11/17 10/11/17 10/12/17 11:31 21:43 06:00 WBC MCH RDW Plt Count Seg Neuts % (Manual) Lymphocytes % (Manual) Monocytes % (Manual) Seg Neutrophils # Man Lymphocytes # (Manual) Monocytes # (Manual) PT 53.3 H INR APTT POC ABG pH POC ABG pCO2 32.2 L POC ABG pO2 37 L Sodium Potassium Carbon Dioxide BUN Creatinine Glucose POC Glucose 115 H Hemoglobin A1c Lactic Acid Calcium Phosphorus Total Creatine Kinase Troponin T NT-Pro-B Natriuret Pep Total Protein Albumin LDL Cholesterol Direct HDL Cholesterol Urine WBC (Auto) 10/12/17 10/12/17 10/12/17 06:00 06:00 08:18 WBC 18.0 H MCH 27 L RDW 16.8 H Plt Count 89 L Seg Neuts % (Manual) Lymphocytes % (Manual) Monocytes % (Manual) Seg Neutrophils # Man Lymphocytes # (Manual) Monocytes # (Manual) PT INR APTT POC ABG pH POC ABG pCO2 POC ABG pO2 Sodium Potassium Carbon Dioxide 19 L BUN Creatinine 3.5 H Glucose 160 H POC Glucose 150 H Hemoglobin A1c Lactic Acid Calcium Phosphorus 5.90 H Total Creatine Kinase Troponin T NT-Pro-B Natriuret Pep Total Protein Albumin LDL Cholesterol Direct HDL Cholesterol Urine WBC (Auto) Chest x-ray: image reviewed (bibasilar atelectasis vs infiltrate; left chest ICD ) Allied health notes reviewed: nursing
[2017-10-12 10:33] LABS: INR 5.39 (0.87-1.13)
[2017-10-12 11:07] LABS: Hepatitis A Antibody IgM Non-Reactive (NonReactive); Hepatitis B Core IgM Non-Reactive (NonReactive); Hepatitis B Surface Antigen Non-Reactive (Negative); Hepatitis C Virus Antibody Non-Reactive (NonReactive)
[2017-10-12 11:33] LABS: Anisocytosis 1+; Basophils % (Manual) 0 % (0.0-1.8); Eosinophils % (Manual) 0 % (0.0-4.3); Total Cells Counted 100
--- NOTE | 2017-10-12 11:33 | Progress Note ---
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 Presence of indwelling cardiac defibrillator Device interrogation - 37 episodes of VT/VF with 2 shocks delivered since August 29 2017. Chronic atrial fibrillation, rate control on warfarin for chronic anticoagulation due currently on hold d/t supratherapeutic INR. Polymorphic ventricular tachycardia normal TSH Recommend: Continue amiodarone and beta blockers as tolerated. Subjective Date of service: 10/12/17 Principal diagnosis: acute renal failure Interval history: Patient remains altered. Venturi mask is in place. Objective Vital Signs Temp Pulse Pulse Pulse Resp BP Pulse Ox 10/12/17 10:00 59 L 22 99/54 99 10/12/17 09:21 69 99/54 10/12/17 09:01 75 23 99/54 99 10/12/17 08:19 95 10/12/17 08:00 97.4 F L 67 21 102/52 100 10/12/17 07:00 76 22 112/62 97 10/12/17 06:00 71 31 H 109/61 95 10/12/17 05:00 71 26 H 98/43 96 10/12/17 04:01 69 23 107/47 97 10/12/17 04:00 98.7 F 24 10/12/17 03:00 67 26 H 107/47 99 10/12/17 02:00 67 23 112/46 98 10/12/17 01:00 70 20 108/48 99 10/12/17 00:00 72 81 80 25 H 116/54 99 10/11/17 23:27 81 136/48 10/11/17 23:01 65 21 81/38 99 10/11/17 22:52 99 F 10/11/17 22:00 84 19 108/60 94 10/11/17 21:00 82 22 99/47 98 10/11/17 20:41 95 10/11/17 20:00 97.4 F L 83 25 H 105/51 99 10/11/17 19:59 83 30 H 114/48 85 10/11/17 19:51 83 26 H 114/48 98 10/11/17 19:41 76 24 114/48 97 10/11/17 19:31 74 26 H 114/48 98 05/16/18 19:21 90 20 114/48 97 05/16/18 19:11 74 20 114/48 99 05/16/18 19:00 92 H 24 114/48 98 05/16/18 18:51 71 28 H 112/52 94 05/16/18 18:41 77 26 H 112/52 99 05/16/18 18:30 86 23 112/52 100 05/16/18 18:21 70 18 112/52 100 05/16/18 18:11 73 19 112/52 100 05/16/18 18:00 79 20 112/52 100 05/16/18 17:51 71 19 107/45 100 05/16/18 17:41 84 19 107/45 97 05/16/18 17:31 79 20 107/45 100 05/16/18 17:21 75 20 107/45 98 05/16/18 17:11 76 22 107/45 100 05/16/18 17:00 74 21 107/45 100 05/16/18 16:51 81 20 120/51 100 05/16/18 16:41 80 30 H 120/51 100 05/16/18 16:31 78 21 120/51 100 05/16/18 16:21 75 29 H 120/51 100 05/16/18 16:11 75 19 120/51 100 05/16/18 16:00 89 77 26 H 120/51 99 05/16/18 15:51 87 24 113/46 100 05/16/18 15:41 71 26 H 113/46 97 05/16/18 15:31 78 23 113/46 100 05/16/18 15:21 94 H 29 H 113/46 100 05/16/18 15:11 75 22 113/46 100 05/16/18 15:00 74 28 H 113/46 100 05/16/18 14:51 91 H 24 103/52 100 05/16/18 14:41 72 22 103/52 100 05/16/18 14:31 70 19 103/52 100 05/16/18 14:21 72 22 103/52 100 05/16/18 14:11 75 27 H 103/52 100 05/16/18 14:00 77 32 H 103/52 100 05/16/18 13:51 95 H 27 H 102/39 100 05/16/18 13:41 81 18 102/39 100 10/11/17 13:31 71 18 102/39 100 10/11/17 13:21 68 18 102/39 100 10/11/17 13:11 87 19 102/39 10/11/17 13:00 72 19 102/39 10/11/17 12:51 71 18 109/41 100 10/11/17 12:41 74 19 109/41 10/11/17 12:31 70 19 109/41 100 10/11/17 12:21 70 15 109/41 100 10/11/17 12:11 72 22 109/41 10/11/17 12:00 74 84 22 109/41 10/11/17 11:51 95 H 22 111/50 10/11/17 11:41 88 22 111/50 100 - Physical Examination General: No Apparent Distress Cardiac: Positive: irregularly irregular - Labs and Meds Coagulation 10/12/17 Range/Units 06:00 PT 53.3 H (12.2-14.9) Sec. INR 5.39 H* (0.87-1.13) CBC 10/12/17 Range/Units 06:00 WBC 18.0 H (4.5-11.0) K/mm3 RBC 4.43 (3.65-5.03) M/mm3 Hgb 12.1 (10.1-14.3) gm/dl Hct 37.3 (30.3-42.9) % Plt Count 89 L (140-440) K/mm3 Comprehensive Metabolic Panel 10/11/17 10/12/17 Range/Units 04:04 06:00 Sodium 137 (137-145) mmol/L Potassium 5.0 (3.6-5.0) mmol/L Chloride 103.8 (98-107) mmol/L Carbon Dioxide 19 L (22-30) mmol/L BUN 145 H (7-17) mg/dL Creatinine 3.5 H (0.7-1.2) mg/dL Glucose 105 H 160 H (65-100) mg/dL Calcium 12.0 H (8.4-10.2) mg/dL
[2017-10-12 11:34] LABS: Burr Cells Few; Platelet Estimate Appears Decreased; Spherocytes Few
--- NOTE | 2017-10-12 12:19 | Operative Report ---
Operative Report Operative Report: Operative note: Date: 10/12/2017 Preoperative diagnosis: Renal failure Postoperative diagnosis: Same. Operation: Right femoral Vas-Cath insertion Surgeon: Kriss Morales. Asst.: None Anesthesia: Local EBL: Minimal Findings: None Indications: Renal failure with hyperkalemia Operative details: Patient was prepped and draped right groin in a sterile fashion. After timeout right femoral vein was accessed under ultrasound guidance with access needle. Wire was advanced in the femoral vein proximally. Skin incision was made with 11 blade and serially dilated skin past with subsequent insertion of Vas-Cath catheter 30 cm in length. Ports were checked for good flow and flushed with saline. Catheter was secured in place with 3-0 nylon stitches and sterile dressing applied. She tolerated the procedure well.
[2017-10-12] MEDS ORDERED: cefTRIAXone 1 GM in NACL 0.9% 20 ML IV SCH (12:30)
[2017-10-12] MEDS ORDERED: VANCOMYCIN 1,250 MG in NACL 0.9% 250ML 250 ML IV ONE (13:00)
[2017-10-12] MEDS: NACL 0.9% 1000 ML 1,000 ML IV SCH (13:11)
[2017-10-12] MEDS ORDERED: SIMPLE SYRUP FEEDTUBE PRN ×2 (13:54)
[2017-10-12] MEDS ORDERED: SODIUM BICARBONATE FEEDTUBE PRN (13:54)
[2017-10-12] MEDS ORDERED: PANCREAZE DR 10,500 UNIT FEEDTUBE PRN (13:54)
[2017-10-12] MEDS: LEVOPHED DRIP 4 MG/NS 250 ML 4 MG/250 ML BAG IV SCH (15:10)
--- NOTE | 2017-10-12 17:01 | Progress Note ---
Assessment and Plan Assessment and plan: Acute Encephalopathy * POSSIBLE Uremic encephalopathy * Discussed with Cardiology and Nephrology. Patient will be dialyzed, [facility] Card[facility] following Acute on chronic systolic CHF. lasix iv. Coreg, on hold for now because of low BP. Will resume when BP improves Started on Milrinone infusion yesterday Diabetes mellitus Type 2. Fingerstick glucose QAC AND hs Hypotension. Improving BP, Coreg and Norvasc on hold. Acute Kidney Injury. Creatinine 2.7 today, worse than yesterday Nephrology following Atrial fibrillation with controlled ventricular response, On Coumadin. Coumadin on hold since admission, because INR high 4.73 today Daily INR DVT prophylaxis. On Coumadin Full code status. Transfer to ICU for closer monitoring. Discussed with [facility] Transfer [employer] Operator and cardiology The high probability of a clinically significant, sudden or life threatening deterioration of the [cardiac, neurology] system(s) required my full and direct attention, intervention and personal management. The aggregate critical care time was [45] minutes. This time is in addition to time spent performing reported procedures but includes the following: [x] Data Review and interpretation [x] Patient assessment and monitoring of vital signs [x] Documentation [x] Medication orders and management History Interval history: Patient seen and examined this remains confused not following commands. Still with cardiac arrhythmia this morning. Hospitalist Physical - Physical exam Narrative exam: General:Not in acute distress, lying in bed, HEENT:Normocephalic, atraumatic Neck:supple,no JVD Lungs: Clear to auscultation, no rales, no wheeze Heart:S1 and S2 regular, no murmurs, rubs or gallop Abd: soft, non tender,non distended, normal bowel sounds Ext: Bilateral lower extremity edema, large blisters both lower ext, no clubbing or cyanosis Neuro: Confused, not following commands, very stuporus, moves all extremities, Skin:dark pigmentation, blisters - Constitutional Vitals: Temp Pulse Resp BP Pulse Ox 99.8 F H 63 19 109/47 86 10/12/17 16:00 10/12/17 16:00 10/12/17 16:00 10/12/17 16:00 10/12/17 16:00 General appearance: Present: well-nourished Results - Labs CBC & Chem 7: 10/14/17 05:45 10/14/17 05:45 Labs: Laboratory Last Values WBC 18.0 K/mm3 (4.5-11.0) H 10/12/17 06:00 RBC 4.43 M/mm3 (3.65-5.03) 10/12/17 06:00 Hgb 12.1 gm/dl (10.1-14.3) 10/12/17 06:00 Hct 37.3 % (30.3-42.9) 10/12/17 06:00 MCV 84 fl (79-97) 10/12/17 06:00 MCH 27 pg (28-32) L 10/12/17 06:00 MCHC 32 % (30-34) 10/12/17 06:00 RDW 16.8 % (13.2-15.2) H 10/12/17 06:00 Plt Count 89 K/mm3 (140-440) L 10/12/17 06:00 Add Manual Diff Complete 10/12/17 06:00 Total Counted 100 10/12/17 06:00 Seg Neutrophils % Automatic Clipper And Stripper 10/12/17 06:00 Seg Neuts % (Manual) 87.0 % (40.0-70.0) H 10/12/17 06:00 Band Neutrophils % 0 % 10/12/17 06:00 Lymphocytes % (Manual) 5.0 % (13.4-35.0) L 10/12/17 06:00 Reactive Lymphs % (Man) 0 % 10/12/17 06:00 Monocytes % (Manual) 8.0 % (0.0-7.3) H 10/12/17 06:00 Eosinophils % (Manual) 0 % (0.0-4.3) 10/12/17 06:00 Basophils % (Manual) 0 % (0.0-1.8) 10/12/17 06:00 Metamyelocytes % 0 % 10/12/17 06:00 Myelocytes % 0 % 10/12/17 06:00 Promyelocytes % 0 % 10/12/17 06:00 Blast Cells % 0 % 10/12/17 06:00 Nucleated RBC % Not Reportable 10/12/17 06:00 Seg Neutrophils # Man 15.7 K/mm3 (1.8-7.7) H 10/12/17 06:00 Band Neutrophils # 0.0 K/mm3 10/12/17 06:00 Lymphocytes # (Manual) 0.9 K/mm3 (1.2-5.4) L 10/12/17 06:00 Abs React Lymphs (Man) 0.0 K/mm3 10/12/17 06:00 Monocytes # (Manual) 1.4 K/mm3 (0.0-0.8) H 10/12/17 06:00 Eosinophils # (Manual) 0.0 K/mm3 (0.0-0.4) 10/12/17 06:00 Basophils # (Manual) 0.0 K/mm3 (0.0-0.1) 10/12/17 06:00 Metamyelocytes # 0.0 K/mm3 10/12/17 06:00 Myelocytes # 0.0 K/mm3 10/12/17 06:00 Promyelocytes # 0.0 K/mm3 10/12/17 06:00 Blast Cells # 0.0 K/mm3 10/12/17 06:00 WBC Morphology Not Reportable 10/12/17 06:00 Hypersegmented Neuts Not Reportable 10/12/17 06:00 Hyposegmented Neuts Not Reportable 10/12/17 06:00 Hypogranular Neuts Not Reportable 10/12/17 06:00 Smudge Cells Not Reportable 10/12/17 06:00 Toxic Granulation Not Reportable 10/12/17 06:00 Toxic Vacuolation Not Reportable 10/12/17 06:00 Dohle Bodies Not Reportable 10/12/17 06:00 Pelger-Huet Anomaly Not Reportable 10/12/17 06:00 Bennie Rods Not Reportable 10/12/17 06:00 Platelet Estimate Appears decreased 10/12/17 06:00 Clumped Platelets Not Reportable 10/12/17 06:00 Plt Clumps, EDTA Not Reportable 10/12/17 06:00 Large Platelets Not Reportable 10/12/17 06:00 Giant Platelets Not Reportable 10/12/17 06:00 Platelet Satelliting Not Reportable 10/12/17 06:00 Plt Morphology Comment Not Reportable 10/12/17 06:00 RBC Morphology Not Reportable 10/12/17 06:00 Dimorphic RBCs Not Reportable 10/12/17 06:00 Polychromasia Not Reportable 10/12/17 06:00 Hypochromasia Not Reportable 10/12/17 06:00 Poikilocytosis Not Reportable 10/12/17 06:00 Anisocytosis 1+ 10/12/17 06:00 Microcytosis Not Reportable 10/12/17 06:00 Macrocytosis Not Reportable 10/12/17 06:00 Spherocytes Few 10/12/17 06:00 Pappenheimer Bodies Not Reportable 10/12/17 06:00 Sickle Cells Not Reportable 10/12/17 06:00 Target Cells Not Reportable 10/12/17 06:00 Tear Drop Cells Not Reportable 10/12/17 06:00 Ovalocytes Not Reportable 10/12/17 06:00 Helmet Cells Not Reportable 10/12/17 06:00 Lambert-[place] Bodies Not Reportable 10/12/17 06:00 Helena Rings Not Reportable 10/12/17 06:00 Rozet Cells Few 10/12/17 06:00 Bite Cells Not Reportable 10/12/17 06:00 Crenated Cell Not Reportable 10/12/17 06:00 Elliptocytes Not Reportable 10/12/17 06:00 Acanthocytes (Spur) Not Reportable 10/12/17 06:00 Rouleaux Not Reportable 10/12/17 06:00 Hemoglobin C Crystals Not Reportable 10/12/17 06:00 Schistocytes Not Reportable 10/12/17 06:00 Malaria parasites Not Reportable 10/12/17 06:00 Earl Bodies Not Reportable 10/12/17 06:00 Hem Pathologist Commnt No 10/12/17 06:00 PT 53.3 Sec. (12.2-14.9) H 10/12/17 06:00 INR 5.39 (0.87-1.13) H* 10/12/17 06:00 APTT 51.7 Sec. (24.2-36.6) H 10/07/17 13:03 POC ABG pH 7.442 (7.35-7.45) 10/11/17 11:31 POC ABG pCO2 32.2 (35-45) L 10/11/17 11:31 POC ABG pO2 37 (80-105) L 10/11/17 11:31 POC ABG HCO3 22.0 10/11/17 11:31 POC ABG Total CO2 23 10/11/17 11:31 POC ABG O2 Sat 73 10/11/17 11:31 POC ABG Base Excess -2 10/11/17 11:31 FiO2 35 % 10/11/17 11:31 Sodium 137 mmol/L (137-145) 10/12/17 06:00 Potassium 5.0 mmol/L (3.6-5.0) 10/12/17 06:00 Chloride 103.8 mmol/L (98-107) 10/12/17 06:00 Carbon Dioxide 19 mmol/L (22-30) L 10/12/17 06:00 Anion Gap 19 mmol/L 10/12/17 06:00 BUN 145 mg/dL (7-17) H 10/12/17 06:00 Creatinine 3.5 mg/dL (0.7-1.2) H 10/12/17 06:00 Estimated GFR 15 ml/min 10/12/17 06:00 BUN/Creatinine Ratio 41 % 10/12/17 06:00 Glucose 160 mg/dL (65-100) H 10/12/17 06:00 POC Glucose 148 (70-105) H 10/12/17 11:45 Hemoglobin A1c 6.6 % (4-6) H 10/07/17 13:03 Lactic Acid 2.20 mmol/L (0.7-2.0) H* 10/12/17 13:40 Calcium 12.0 mg/dL (8.4-10.2) H 10/12/17 06:00 Phosphorus 5.90 mg/dL (2.5-4.5) H 10/12/17 06:00 Magnesium 2.50 mg/dL (1.7-2.3) H 10/12/17 06:00 Total Bilirubin 0.70 mg/dL (0.1-1.2) 10/08/17 08:37 AST 20 units/L (5-40) 10/08/17 08:37 ALT 12 units/L (7-56) 10/08/17 08:37 Alkaline Phosphatase 73 units/L (35-129) 10/08/17 08:37 Total Creatine Kinase 182 units/L (30-135) H 10/08/17 08:37 CK-MB (CK-2) 3.1 ng/mL (0.0-4.0) 10/08/17 08:37 CK-MB (CK-2) Rel Index 1.7 (0-4) 10/08/17 08:37 Troponin T 0.058 ng/mL (0.00-0.029) H 10/08/17 08:37 C-Reactive Protein 25.60 mg/dL (0.00-1.30) H 10/12/17 13:40 NT-Pro-B Natriuret Pep 92317 pg/mL (0-900) H 10/07/17 13:03 Total Protein 5.6 g/dL (6.3-8.2) L 10/08/17 08:37 Albumin 1.7 g/dL (3.9-5) L 10/08/17 08:37 Albumin/Globulin Ratio 0.4 % 10/08/17 08:37 Triglycerides 69 mg/dL (2-149) 10/07/17 13:03 Cholesterol 80 mg/dL (50-199) 10/07/17 13:03 LDL Cholesterol Direct 23 mg/dL (50-130) L 10/07/17 13:03 HDL Cholesterol 29 mg/dL (40-59) L 10/07/17 13:03 Cholesterol/HDL Ratio 2.75 % 10/07/17 13:03 TSH 0.996 mlU/mL (0.270-4.200) 10/09/17 12:36 Urine Color Astrid (Yellow) 10/11/17 10:50 Urine Turbidity Clear (Clear) 10/11/17 10:50 Urine pH 5.0 (5.0-7.0) 10/11/17 10:50 Ur Specific [place] 1.016 (1.003-1.030) 10/11/17 10:50 Urine Protein <15 mg/dl mg/dL (Negative) 10/11/17 10:50 Urine Glucose (UA) Neg mg/dL (Negative) 10/11/17 10:50 Urine Ketones Neg mg/dL (Negative) 10/11/17 10:50 Urine Blood Neg (Negative) 10/11/17 10:50 Urine Nitrite Neg (Negative) 10/11/17 10:50 Urine Bilirubin Neg (Negative) 10/11/17 10:50 Urine Urobilinogen 2.0 mg/dL (<2.0) 10/11/17 10:50 Ur Leukocyte Esterase Sm (Negative) 10/11/17 10:50 Urine WBC (Auto) 16.0 /HPF (0.0-6.0) H 10/11/17 10:50 Urine RBC (Auto) 3.0 /HPF (0.0-6.0) 10/11/17 10:50 U Epithel Cells (Auto) 1.0 /HPF (0-13.0) 10/11/17 10:50 Urine Bacteria (Auto) 4+ /HPF (Negative) 10/11/17 10:50 Urine WBC Clumps 2+ /HPF 10/07/17 14:36 Urine Mucus 2+ /HPF 10/11/17 10:50 Urine Yeast (Budding) 1+ /HPF 10/07/17 14:36 Digoxin 1.8 ng/mL (0.9-2.0) 10/11/17 18:45 Hepatitis A IgM Ab Non-reactive (NonReactive) 10/12/17 10:09 Hep Bs Antigen Non-reactive (Negative) 10/12/17 10:09 Hep B Core IgM Ab Non-reactive (NonReactive) 10/12/17 10:09 Hepatitis C Antibody Non-reactive (NonReactive) 10/12/17 10:09
--- NOTE | 2017-10-12 17:25 | Event Note ---
Date: 10/12/17 Discussed clinical case with daughter and other family members. Daughter decided to make patient DNR. Will continue aggressive measures and management allowed by such status designation.
[2017-10-12] MEDS: VITAMIN K *ORAL LIQUID PO SCH (21:24)
[2017-10-13] MEDS: NACL 0.9% 1000 ML 1,000 ML IV SCH (04:00)
[2017-10-13] MEDS: HumaLOG SUB-Q SCH ×4 (04:21→19:52)
[2017-10-13 04:38] LABS: Basophils % (Auto) 0.6 % (0.0-1.8); Eosinophils # (Auto) 0.3 K/mm3 (0.0-0.4); Eosinophils % (Auto) 5.8 % (0.0-4.3); Hematocrit 38.6 % (30.3-42.9); Hemoglobin 13.5 gm/dl (10.1-14.3); Lymphocytes # (Auto) 1.6 K/mm3 (1.2-5.4); Lymphocytes % (Auto) 27.3 % (13.4-35.0); Mean Corpuscular HGB Conc 35 % (30-34); Mean Corpuscular Hemoglobin 28 pg (28-32); Mean Corpuscular Volume 81 fl (79-97); Monocytes # (Auto) 0.4 K/mm3 (0.0-0.8); Monocytes % (Auto) 7.1 % (0.0-7.3); Platelet Count 368 K/mm3 (140-440); Red Blood Count 4.76 M/mm3 (3.65-5.03); Red Cell Distribution Width 12.6 % (13.2-15.2)
[2017-10-13 04:50] LABS: BUN/Creatinine Ratio 13; Blood Urea Nitrogen 9 mg/dL (7-17); Calcium 8.3 mg/dL (8.4-10.2); Hemolysis Index 3
[2017-10-13 04:56] LABS: INR 2.01 (0.87-1.13)
[2017-10-13] MEDS: LEVOPHED DRIP 4 MG/NS 250 ML 4 MG/250 ML BAG IV SCH ×4 (05:57→21:36)
[2017-10-13] MEDS: SODIUM BICARBONATE FEEDTUBE SCH ×3 (08:00→22:42)
--- NOTE | 2017-10-13 08:38 | Consultation ---
History of Present Illness - Reason for Consult Consult date: 10/13/17 bacteremia Requesting physician: TIM VARGAS - History of Present Illness 77 y/o female with a history of congestive heart failure dilated non-ischemic cardiomyopathy, severe left ventricular systolic dysfunction with ejection fraction reported at 10-15% s/p AIDC, Afib on coumadin; admitted on 10/07/17 due to 24 hours of SOB and right shoulder pain. Right shoulder pain for the past 2- 3 days, achy in quality, severe, exacerbated with movement of the right arm. She denies trauma to the right shoulder. She lives in a shelter. Upon EMS arrival, oxygen saturation was 70%, blood sugar of 44, and low blood pressure of 82 systolic. In the ED, initial temperature was 97.7, heart rate 60, respiration 20, blood pressure 82/31. Initial white count 3.7. Hemoglobin 11.3. Platelets 164. Bands 31%. Creatinine 2.6. Lactic acid 2.2. Urinalysis is negative. Chest x- ray on presentation revealed severe cardiomegaly, with minimal vascular congestion. Microbiology: Blood cultures: 10/11 GPC in chains 4 of 4 bottles 10/12 pending Urine cultures: 10/11 neg Respiratory cultures: Current Antimicrobials: Ceftriaxone Vancomycin Previous Antimicrobials:tral Past History Past Medical History: atrial fib, heart failure Medications and Allergies Allergies Allergy/AdvReac Type Severity Reaction Status Date / Time codeine Allergy Unknown Verified 10/07/17 12:08 Home Medications Medication Instructions Recorded Confirmed Last Taken Type AtorvaSTATin [Lipitor] 20 mg PO HS tablet 07/01/15 10/07/17 Unknown Rx Furosemide [Lasix TAB] 40 mg PO QDAY tablet 07/01/15 10/07/17 Unknown Rx Spironolactone [Aldactone] 12.5 mg PO QDAY tablet 07/01/15 10/07/17 Unknown Rx amLODIPine [Norvasc] 10 mg PO DAILY tablet 07/01/15 10/07/17 Unknown Rx Amiodarone [Cordarone 200 MG TAB] 200 mg PO DAILY #30 tablet 02/24/16 10/07/17 Unknown Rx Aspirin EC [Aspirin Enteric Coated 325 mg PO QDAY #30 tablet 02/24/16 10/07/17 Unknown Rx TAB] Carvedilol [Coreg] 6.25 mg PO BID #60 tablet 02/24/16 10/07/17 Unknown Rx Insulin Aspart Prot/Aspart(Nf) 6 units SUB-Q BIDDIAB #1 vial 02/24/16 10/07/17 Unknown Rx [NovoLOG Mix 70/30 VIAL] Insulin Aspart [NovoLOG Flexpen] 0 units SQ ACHS 03/09/16 10/07/17 Unknown History Magnesium Oxide [Mag-Ox] 400 mg PO QDAY #10 tablet 03/10/16 10/07/17 Unknown Rx Phosphorus #1 [K-Phos Neutral] 250 mg PO QID #40 tablet 03/10/16 10/07/17 Unknown Rx Digoxin [Lanoxin] 0.125 mg PO DAILY 10/07/17 10/07/17 Unknown History Omeprazole 40 mg PO DAILY 10/07/17 10/07/17 Unknown History Warfarin [Coumadin] 3 mg PO QDAY 10/07/17 10/07/17 Unknown History traMADol [Ultram 50 MG tab] 50 mg PO BID 10/07/17 10/07/17 Unknown History Active Meds: Active Medications Acetaminophen (Tylenol) 650 mg PO Q4H PRN PRN Reason: Pain MILD(1-3)/Fever >100.5/SAINI Amiodarone HCl (Cordarone) 200 mg PO BID [facility] Last Admin: 10/12/17 21:27 Dose: 200 mg Lipase/Protease/Amylase (Pancreaze Dr 10,500 Unit) 1 each FEEDTUBE PRN PRN PRN Reason: For Clogged Feeding Tube Aspirin (Ecotrin) 325 mg PO QDAY [facility] Last Admin: 10/12/17 09:23 Dose: 325 mg Atorvastatin Calcium (Lipitor) 20 mg PO HS [facility] Last Admin: 10/12/17 21:24 Dose: 20 mg Carvedilol (Coreg) 3.125 mg PO BID [facility] Last Admin: 10/12/17 21:24 Dose: 3.125 mg Famotidine (Pepcid) 20 mg PO DAILY [facility] Sodium Chloride (Nacl 0.9% 1000 Ml) 1,000 mls @ 75 mls/hr IV DIRECT [facility] Stop: 10/14/17 01:19 Last Admin: 10/13/17 04:00 Dose: 75 mls/hr Ceftriaxone Sodium 1 gm/ (Sodium Chloride) 20 mls @ 2 mls/min IV Q24HR [facility] Last Admin: 10/12/17 13:12 Dose: 2 mls/min Norepinephrine (Levophed Drip 4 Mg/Ns 250 Ml) 4 mg in 250 mls @ 7.5 mls/hr IV TITR [facility]; Protocol Last Titration: 10/13/17 07:40 Dose: 15 mcg/min, 56.25 mls/hr Insulin Human Lispro (Humalog) 0 unit SUB-Q ACHS [facility]; Protocol Last Admin: 10/13/17 04:21 Dose: Not Given Ondansetron HCl (Zofran) 4 mg IV Q8H PRN PRN Reason: Nausea And Vomiting Phytonadione (Vitamin K *Oral Liquid*) 10 mg PO Q8H [facility] Stop: 10/14/17 12:01 Last Admin: 10/12/17 21:24 Dose: 10 mg Simple Syrup (Simple Syrup) 15 ml FEEDTUBE PRN PRN PRN Reason: Hypoglycemia Simple Syrup (Simple Syrup) 30 ml FEEDTUBE PRN PRN PRN Reason: Hypoglycemia Sodium Bicarbonate (Sodium Bicarbonate) 650 mg FEEDTUBE TID [facility] Last Admin: 10/12/17 21:27 Dose: 650 mg Sodium Bicarbonate (Sodium Bicarbonate) 325 mg FEEDTUBE PRN PRN PRN Reason: For Clogged Feeding Tube Sodium Chloride (Sodium Chloride Flush Syringe 10 Ml) 10 ml IV BID [facility] Last Admin: 10/11/17 23:33 Dose: Not Given Sodium Chloride (Sodium Chloride Flush Syringe 10 Ml) 10 ml IV PRN PRN PRN Reason: LINE FLUSH Zolpidem Tartrate (Ambien) 5 mg PO QHS PRN PRN Reason: Insomnia Review of Systems ROS unobtainable: due to mental status Physical Examination - Physical Exam Narrative exam: General appearance: lethergic on venturi mask Eyes: anicteric sclerae, moist conjunctivae; no lid-lag; PERRLA HENT: Atraumatic; oropharynx with clots with venturi mask poor dentition, NGT Neck: Trachea midline; supple, no thyromegaly or lymphadenopathy Lungs: distant BS CV: irreg Abdomen: Soft, TTP right abdomen Extremities: mild leg edema Skin: Normal temperature, turgor and texture; no rash, ulcers or subcutaneous nodules Psych: Appropriate affect, alert and oriented to person, place and time. Neuro: alert and oriented x 3. Moving all extermities Lines: right fem HD - Constitutional Vitals: Vital Signs Temp Pulse Resp BP Pulse Ox 98.2 F 82 30 H 104/35 55 L 10/13/17 02:57 10/13/17 08:00 10/13/17 08:00 10/13/17 08:00 10/13/17 08:00 Temperature -Last 24 Hours Temperature 98.2 F Temperature 98.5 F Temperature 98.4 F Temperature 99.8 F Temperature 97.5 F Temperature 97.5 F Temperature 97.5 F Results - Labs CBC & Chem 7: 10/13/17 04:00 10/13/17 04:00 Labs: Abnormal lab results 10/12/17 10/12/17 10/12/17 Range/Units 06:00 06:00 06:00 WBC 18.0 H (4.5-11.0) K/mm3 MCH 27 L (28-32) pg MCHC (30-34) % RDW 16.8 H (13.2-15.2) % Plt Count 89 L (140-440) K/mm3 Eos % (Auto) (0.0-4.3) % Seg Neuts % (Manual) 87.0 H (40.0-70.0) % Lymphocytes % (Manual) 5.0 L (13.4-35.0) % Monocytes % (Manual) 8.0 H (0.0-7.3) % Seg Neutrophils # Man 15.7 H (1.8-7.7) K/mm3 Lymphocytes # (Manual) 0.9 L (1.2-5.4) K/mm3 Monocytes # (Manual) 1.4 H (0.0-0.8) K/mm3 PT 53.3 H (12.2-14.9) Sec. INR 5.39 H* (0.87-1.13) Carbon Dioxide (22-30) mmol/L BUN (7-17) mg/dL Creatinine (0.7-1.2) mg/dL Glucose (65-100) mg/dL POC Glucose (70-105) Lactic Acid (0.7-2.0) mmol/L Calcium (8.4-10.2) mg/dL Phosphorus (2.5-4.5) mg/dL Magnesium 2.50 H (1.7-2.3) mg/dL C-Reactive Protein (0.00-1.30) mg/dL 10/12/17 10/12/17 10/12/17 Range/Units 06:00 11:45 13:40 WBC (4.5-11.0) K/mm3 MCH (28-32) pg MCHC (30-34) % RDW (13.2-15.2) % Plt Count (140-440) K/mm3 Eos % (Auto) (0.0-4.3) % Seg Neuts % (Manual) (40.0-70.0) % Lymphocytes % (Manual) (13.4-35.0) % Monocytes % (Manual) (0.0-7.3) % Seg Neutrophils # Man (1.8-7.7) K/mm3 Lymphocytes # (Manual) (1.2-5.4) K/mm3 Monocytes # (Manual) (0.0-0.8) K/mm3 PT (12.2-14.9) Sec. INR (0.87-1.13) Carbon Dioxide 19 L (22-30) mmol/L BUN 145 H (7-17) mg/dL Creatinine 3.5 H (0.7-1.2) mg/dL Glucose 160 H (65-100) mg/dL POC Glucose 148 H (70-105) Lactic Acid 2.20 H* (0.7-2.0) mmol/L Calcium 12.0 H (8.4-10.2) mg/dL Phosphorus 5.90 H (2.5-4.5) mg/dL Magnesium (1.7-2.3) mg/dL C-Reactive Protein (0.00-1.30) mg/dL 10/12/17 10/12/17 10/12/17 Range/Units 13:40 17:23 18:35 WBC (4.5-11.0) K/mm3 MCH (28-32) pg MCHC (30-34) % RDW (13.2-15.2) % Plt Count (140-440) K/mm3 Eos % (Auto) (0.0-4.3) % Seg Neuts % (Manual) (40.0-70.0) % Lymphocytes % (Manual) (13.4-35.0) % Monocytes % (Manual) (0.0-7.3) % Seg Neutrophils # Man (1.8-7.7) K/mm3 Lymphocytes # (Manual) (1.2-5.4) K/mm3 Monocytes # (Manual) (0.0-0.8) K/mm3 PT (12.2-14.9) Sec. INR (0.87-1.13) Carbon Dioxide (22-30) mmol/L BUN (7-17) mg/dL Creatinine (0.7-1.2) mg/dL Glucose (65-100) mg/dL POC Glucose (70-105) Lactic Acid 2.10 H* 2.70 H* (0.7-2.0) mmol/L Calcium (8.4-10.2) mg/dL Phosphorus (2.5-4.5) mg/dL Magnesium (1.7-2.3) mg/dL C-Reactive Protein 25.60 H (0.00-1.30) mg/dL 10/12/17 10/13/17 10/13/17 Range/Units 22:35 04:00 04:00 WBC (4.5-11.0) K/mm3 MCH (28-32) pg MCHC 35 H (30-34) % RDW 12.6 L (13.2-15.2) % Plt Count (140-440) K/mm3 Eos % (Auto) 5.8 H (0.0-4.3) % Seg Neuts % (Manual) (40.0-70.0) % Lymphocytes % (Manual) (13.4-35.0) % Monocytes % (Manual) (0.0-7.3) % Seg Neutrophils # Man (1.8-7.7) K/mm3 Lymphocytes # (Manual) (1.2-5.4) K/mm3 Monocytes # (Manual) (0.0-0.8) K/mm3 PT 24.1 H (12.2-14.9) Sec. INR 2.01 H (0.87-1.13) Carbon Dioxide (22-30) mmol/L BUN (7-17) mg/dL Creatinine (0.7-1.2) mg/dL Glucose (65-100) mg/dL POC Glucose (70-105) Lactic Acid 3.00 H* (0.7-2.0) mmol/L Calcium (8.4-10.2) mg/dL Phosphorus (2.5-4.5) mg/dL Magnesium (1.7-2.3) mg/dL C-Reactive Protein (0.00-1.30) mg/dL 10/13/17 10/13/17 Range/Units 04:00 04:00 WBC (4.5-11.0) K/mm3 MCH (28-32) pg MCHC (30-34) % RDW (13.2-15.2) % Plt Count (140-440) K/mm3 Eos % (Auto) (0.0-4.3) % Seg Neuts % (Manual) (40.0-70.0) % Lymphocytes % (Manual) (13.4-35.0) % Monocytes % (Manual) (0.0-7.3) % Seg Neutrophils # Man (1.8-7.7) K/mm3 Lymphocytes # (Manual) (1.2-5.4) K/mm3 Monocytes # (Manual) (0.0-0.8) K/mm3 PT (12.2-14.9) Sec. INR (0.87-1.13) Carbon Dioxide (22-30) mmol/L BUN (7-17) mg/dL Creatinine (0.7-1.2) mg/dL Glucose (65-100) mg/dL POC Glucose (70-105) Lactic Acid (0.7-2.0) mmol/L Calcium 8.3 L D (8.4-10.2) mg/dL Phosphorus (2.5-4.5) mg/dL Magnesium 1.60 L (1.7-2.3) mg/dL C-Reactive Protein (0.00-1.30) mg/dL Assessment and Plan Assessment: 1) Severe sepsis with septic shock: Present on admission, manifested by hypotension, neutropenia, bandemia, increased lactate. Etiology most likely bacteremia. 2) High grade GPC in chains bacteremia: likely Strep or Enterococcus, source ? unclear. Patient has an AICD ? endocarditis. UA was neg. -10/11 Blood cultures GPC in chains 4 of 4 bottles -10/12 Blood cultures pending -TTE no vegetations 3) Acute Respiratory failure 4) SUNDAR now on HD 5) Acute encephalopathy 6) Congestive heart failure, dilated non-ischemic cardiomyopathy, severe left ventricular systolic dysfunction with ejection fraction reported at 10-15% s/p AIDC 7) Afib on coumadin 8) Hypoglycemia 9) DNR Plan: -consider VANE due to high grade bacteremia and the presence of AICD -follow-up blood cultures -obtain C-reactive protein (CRP) -repeat blood cx in 48h -continue vancomycin renally dosed -stop ceftriaxone -add unasyn IV renally dosed Overall very poor prognosis, please consider palliative care Thank you for your consultation, will follow up with you. Aretha Steele MD Infectious Diseases Specialist [facility] ([facility] M [phone] O [phone]
[2017-10-13] MEDS: COREG PO SCH ×2 (09:05→22:43)
[2017-10-13] MEDS ORDERED: MAGNESIUM SULFATE IV ONE ×3 (09:18→11:04)
[2017-10-13] MEDS ORDERED: VANCOMYCIN PHARMACY TO DOSE IV SCH (10:00)
--- NOTE | 2017-10-13 10:40 | Progress Note ---
Assessment and Plan Acute Hypoxemic Respiratory Failure Bibasilar Pneumonia vs Atelectasis Acute Encephalopathy Malignant Ventricukar Arrythmia (Torsades) Acute CHF exacerbation Diabetes type II SUNDAR (now on Dialysis) Sepsis Syndrome Atrial Fibrillation - To resume dialysis and hopefully with electrolyte and azotemia improvement dysrythmia's improve (spoke with processing clerk) - CT brain negative - continue BIPAP for ventilatory support during dialysis as well as for alveolar recruitment and support while asleep - get lactate and CRP prn levels to assist with anti-infective therapy and de- escalation decisions - Milrinone drip adjustment per cardiology - continue glycemic control with SSI - Aspiration precautions - seen by ID and started on Unasyn - continue vancomycin - conservative volume management strategies re: CHF - stop vitamin K - continue GI prophylaxis - continue other care per attending / other consultants .. now a DNR and family considering Hospice care but have not made a decision The high probability of a clinically significant, sudden or life threatening deterioration of the [cardiac, neurology] system(s) required my full and direct attention, intervention and personal management. The aggregate critical care time was [35] minutes without overlap. Time includes spent on; [x] Data Review and interpretation [x] Patient assessment and monitoring of vital signs [x] Documentation [x] Medication orders and management Subjective Date of service: 10/13/17 Principal diagnosis: Acute Hypoxemic Resp Failure; SUNDAR; Acute Encephalopathy; Torsades Interval history: Patient is seen today for: Torsades; SUNDAR; Acute Encephalopathy; Sepsis Syndrome Seen and examined at bedside; 24hour events reviewed; nursing and respiratory care staff consulted; no adverse overnight events reported to me; resting in bed ; remains lethargic; welts over legs appear to be advancing; no trunk involvement and no active sloughing; Hemodialysis stopped yesterday due to hemodynamic instability Objective Vital Signs - 12hr 10/12/17 10/12/17 10/13/17 22:57 23:00 00:00 Temperature 98.5 F Pulse Rate 65 67 Pulse Rate [ 82 Apical] Pulse Rate [ 82 From Monitor] Respiratory 24 23 Rate Blood Pressure 117/34 92/32 O2 Sat by Pulse 96 Oximetry 10/13/17 10/13/17 10/13/17 00:02 01:00 02:00 Temperature Pulse Rate 70 74 86 Pulse Rate [ Apical] Pulse Rate [ From Monitor] Respiratory 37 H 26 H 24 Rate Blood Pressure 92/32 101/35 104/37 O2 Sat by Pulse 95 87 88 Oximetry 10/13/17 10/13/17 10/13/17 02:57 03:00 04:00 Temperature 98.2 F Pulse Rate 70 86 Pulse Rate [ 82 Apical] Pulse Rate [ 77 From Monitor] Respiratory 25 H 23 Rate Blood Pressure 109/46 89/39 O2 Sat by Pulse 95 96 Oximetry 10/13/17 10/13/17 10/13/17 05:00 06:00 07:00 Temperature Pulse Rate 82 76 79 Pulse Rate [ Apical] Pulse Rate [ From Monitor] Respiratory 26 H 26 H 23 Rate Blood Pressure 119/47 121/40 85/31 O2 Sat by Pulse 96 96 95 Oximetry 10/13/17 10/13/17 07:36 08:00 Temperature Pulse Rate 82 82 Pulse Rate [ Apical] Pulse Rate [ From Monitor] Respiratory 33 H 30 H Rate Blood Pressure 104/35 104/35 O2 Sat by Pulse 98 55 L Oximetry Constitutional: lethargic, appears uncomfortable, other (elderly looking AAF; normocephalic) Eyes: non-icteric ENT: oropharynx moist, other (30% Venti Mask) Neck: supple, no lymphadenopathy, no JVD, other (no thyromegaly) Effort: mildly labored Ascultation: Bilateral: diminished breath sounds, rales Percussion: Bilateral: not dull Cardiovascular: irregular rhythm, murmur noted, other (no rubs) Gastrointestinal: normoactive bowel sounds, soft, non-tender, non-distended, other (No palpable HSM) Integumentary: rash, other (welts over skin of feet and legs) Extremities: no cyanosis, pulses normal, no ischemia or petechiae, edema (2+) Neurologic: unable to assess Psychiatric: other (encephalopathic) CBC and BMP: 10/14/17 05:45 10/14/17 05:45 ABG, PT/INR, D-dimer: ABG POC ABG pH 7.531 (7.35-7.45) H 10/12/17 20:38 POC ABG pCO2 27.0 (35-45) L 10/12/17 20:38 POC ABG pO2 78 (80-105) L 10/12/17 20:38 POC ABG HCO3 22.6 10/12/17 20:38 POC ABG Total CO2 23 10/12/17 20:38 POC ABG O2 Sat 97 10/12/17 20:38 PT/INR, D-dimer PT 24.1 Sec. (12.2-14.9) H 10/13/17 04:00 INR 2.01 (0.87-1.13) H 10/13/17 04:00 Abnormal lab findings: Abnormal Labs 10/07/17 10/07/17 10/07/17 12:07 13:03 13:03 WBC 3.7 L MCH MCHC RDW 16.4 H Plt Count Eos % (Auto) Seg Neuts % (Manual) Lymphocytes % (Manual) 11.0 L Monocytes % (Manual) 14.0 H Seg Neutrophils # Man 1.6 L Lymphocytes # (Manual) 0.4 L Monocytes # (Manual) PT INR APTT POC ABG pH POC ABG pCO2 POC ABG pO2 Sodium Potassium Carbon Dioxide BUN Creatinine Glucose POC Glucose 159 H Hemoglobin A1c Lactic Acid Calcium Phosphorus Magnesium Total Creatine Kinase Troponin T C-Reactive Protein NT-Pro-B Natriuret Pep 76147 H Total Protein Albumin LDL Cholesterol Direct HDL Cholesterol Urine WBC (Auto) 10/07/17 10/07/17 10/07/17 13:03 13:03 13:03 WBC MCH MCHC RDW Plt Count Eos % (Auto) Seg Neuts % (Manual) Lymphocytes % (Manual) Monocytes % (Manual) Seg Neutrophils # Man Lymphocytes # (Manual) Monocytes # (Manual) PT 37.5 H INR 3.49 H APTT 51.7 H POC ABG pH POC ABG pCO2 POC ABG pO2 Sodium Potassium Carbon Dioxide 21 L BUN 58 H Creatinine 2.6 H Glucose 134 H POC Glucose Hemoglobin A1c Lactic Acid 2.50 H* Calcium Phosphorus Magnesium Total Creatine Kinase Troponin T 0.062 H C-Reactive Protein NT-Pro-B Natriuret Pep Total Protein 5.7 L Albumin 2.1 L LDL Cholesterol Direct 23 L HDL Cholesterol 29 L Urine WBC (Auto) 10/07/17 10/07/17 10/07/17 13:03 14:23 15:54 WBC MCH MCHC RDW Plt Count Eos % (Auto) Seg Neuts % (Manual) Lymphocytes % (Manual) Monocytes % (Manual) Seg Neutrophils # Man Lymphocytes # (Manual) Monocytes # (Manual) PT INR APTT POC ABG pH 7.345 L POC ABG pCO2 34.9 L POC ABG pO2 61 L Sodium Potassium Carbon Dioxide BUN Creatinine Glucose POC Glucose Hemoglobin A1c 6.6 H Lactic Acid 2.20 H* Calcium Phosphorus Magnesium Total Creatine Kinase Troponin T C-Reactive Protein NT-Pro-B Natriuret Pep Total Protein Albumin LDL Cholesterol Direct HDL Cholesterol Urine WBC (Auto) 10/08/17 10/08/17 10/08/17 05:58 06:28 06:45 WBC MCH MCHC RDW Plt Count Eos % (Auto) Seg Neuts % (Manual) Lymphocytes % (Manual) Monocytes % (Manual) Seg Neutrophils # Man Lymphocytes # (Manual) Monocytes # (Manual) PT INR APTT POC ABG pH POC ABG pCO2 POC ABG pO2 Sodium Potassium Carbon Dioxide BUN Creatinine Glucose POC Glucose 56 L 62 L 65 L Hemoglobin A1c Lactic Acid Calcium Phosphorus Magnesium Total Creatine Kinase Troponin T C-Reactive Protein NT-Pro-B Natriuret Pep Total Protein Albumin LDL Cholesterol Direct HDL Cholesterol Urine WBC (Auto) 10/08/17 10/08/17 10/08/17 08:37 08:37 08:37 WBC 3.3 L MCH MCHC RDW 16.8 H Plt Count Eos % (Auto) Seg Neuts % (Manual) Lymphocytes % (Manual) 10.0 L Monocytes % (Manual) 9.0 H Seg Neutrophils # Man Lymphocytes # (Manual) 0.3 L Monocytes # (Manual) PT 49.9 H INR 4.97 H APTT POC ABG pH POC ABG pCO2 POC ABG pO2 Sodium 134 L Potassium 5.4 H Carbon Dioxide 21 L BUN 69 H Creatinine 2.5 H Glucose 109 H POC Glucose Hemoglobin A1c Lactic Acid Calcium Phosphorus Magnesium Total Creatine Kinase Troponin T C-Reactive Protein NT-Pro-B Natriuret Pep Total Protein 5.6 L Albumin 1.7 L LDL Cholesterol Direct HDL Cholesterol Urine WBC (Auto) 10/08/17 10/08/17 10/08/17 08:37 17:34 21:35 WBC MCH MCHC RDW Plt Count Eos % (Auto) Seg Neuts % (Manual) Lymphocytes % (Manual) Monocytes % (Manual) Seg Neutrophils # Man Lymphocytes # (Manual) Monocytes # (Manual) PT INR APTT POC ABG pH POC ABG pCO2 POC ABG pO2 Sodium Potassium Carbon Dioxide BUN Creatinine Glucose POC Glucose 114 H 110 H Hemoglobin A1c Lactic Acid Calcium Phosphorus Magnesium Total Creatine Kinase 182 H Troponin T 0.058 H C-Reactive Protein NT-Pro-B Natriuret Pep Total Protein Albumin LDL Cholesterol Direct HDL Cholesterol Urine WBC (Auto) 10/09/17 10/09/17 10/09/17 05:15 07:31 07:31 WBC MCH MCHC RDW 16.7 H Plt Count Eos % (Auto) Seg Neuts % (Manual) 71.0 H Lymphocytes % (Manual) 6.0 L Monocytes % (Manual) 8.0 H Seg Neutrophils # Man Lymphocytes # (Manual) 0.5 L Monocytes # (Manual) PT 48.0 H INR 4.73 H APTT POC ABG pH POC ABG pCO2 POC ABG pO2 Sodium Potassium Carbon Dioxide BUN Creatinine Glucose POC Glucose 125 H Hemoglobin A1c Lactic Acid Calcium Phosphorus Magnesium Total Creatine Kinase Troponin T C-Reactive Protein NT-Pro-B Natriuret Pep Total Protein Albumin LDL Cholesterol Direct HDL Cholesterol Urine WBC (Auto) 10/09/17 10/09/17 10/09/17 07:31 11:20 16:11 WBC MCH MCHC RDW Plt Count Eos % (Auto) Seg Neuts % (Manual) Lymphocytes % (Manual) Monocytes % (Manual) Seg Neutrophils # Man Lymphocytes # (Manual) Monocytes # (Manual) PT INR APTT POC ABG pH POC ABG pCO2 POC ABG pO2 Sodium Potassium Carbon Dioxide 21 L BUN 82 H Creatinine 2.7 H Glucose 109 H POC Glucose 106 H 123 H Hemoglobin A1c Lactic Acid Calcium 10.7 H Phosphorus 5.40 H Magnesium Total Creatine Kinase Troponin T C-Reactive Protein NT-Pro-B Natriuret Pep Total Protein Albumin LDL Cholesterol Direct HDL Cholesterol Urine WBC (Auto) 10/09/17 10/10/17 10/10/17 21:23 06:13 06:13 WBC 13.5 H MCH 27 L MCHC RDW 16.7 H Plt Count 115 L Eos % (Auto) Seg Neuts % (Manual) 79.0 H Lymphocytes % (Manual) 5.0 L Monocytes % (Manual) Seg Neutrophils # Man 10.7 H Lymphocytes # (Manual) 0.7 L Monocytes # (Manual) PT 47.5 H INR 4.67 H APTT POC ABG pH POC ABG pCO2 POC ABG pO2 Sodium Potassium Carbon Dioxide BUN Creatinine Glucose POC Glucose 117 H Hemoglobin A1c Lactic Acid Calcium Phosphorus Magnesium Total Creatine Kinase Troponin T C-Reactive Protein NT-Pro-B Natriuret Pep Total Protein Albumin LDL Cholesterol Direct HDL Cholesterol Urine WBC (Auto) 10/10/17 10/10/17 10/11/17 06:13 21:24 04:04 WBC MCH MCHC RDW Plt Count Eos % (Auto) Seg Neuts % (Manual) Lymphocytes % (Manual) Monocytes % (Manual) Seg Neutrophils # Man Lymphocytes # (Manual) Monocytes # (Manual) PT 52.0 H INR 5.23 H* APTT POC ABG pH POC ABG pCO2 POC ABG pO2 Sodium Potassium Carbon Dioxide 19 L BUN 95 H Creatinine 3.0 H Glucose 105 H POC Glucose 121 H Hemoglobin A1c Lactic Acid Calcium 11.8 H Phosphorus 5.60 H Magnesium Total Creatine Kinase Troponin T C-Reactive Protein NT-Pro-B Natriuret Pep Total Protein Albumin LDL Cholesterol Direct HDL Cholesterol Urine WBC (Auto) 10/11/17 10/11/17 10/11/17 04:04 04:04 10:50 WBC 18.8 H MCH MCHC RDW 16.5 H Plt Count 86 L Eos % (Auto) Seg Neuts % (Manual) 85.0 H Lymphocytes % (Manual) 7.0 L Monocytes % (Manual) Seg Neutrophils # Man 16.0 H Lymphocytes # (Manual) Monocytes # (Manual) 0.9 H PT INR APTT POC ABG pH POC ABG pCO2 POC ABG pO2 Sodium Potassium 5.1 H Carbon Dioxide 17 L BUN 120 H Creatinine 3.3 H Glucose 105 H POC Glucose Hemoglobin A1c Lactic Acid Calcium 11.7 H Phosphorus 6.00 H Magnesium Total Creatine Kinase Troponin T C-Reactive Protein NT-Pro-B Natriuret Pep Total Protein Albumin LDL Cholesterol Direct HDL Cholesterol Urine WBC (Auto) 16.0 H 10/11/17 10/11/17 10/12/17 11:31 21:43 06:00 WBC MCH MCHC RDW Plt Count Eos % (Auto) Seg Neuts % (Manual) Lymphocytes % (Manual) Monocytes % (Manual) Seg Neutrophils # Man Lymphocytes # (Manual) Monocytes # (Manual) PT INR APTT POC ABG pH POC ABG pCO2 32.2 L POC ABG pO2 37 L Sodium Potassium Carbon Dioxide BUN Creatinine Glucose POC Glucose 115 H Hemoglobin A1c Lactic Acid Calcium Phosphorus Magnesium 2.50 H Total Creatine Kinase Troponin T C-Reactive Protein NT-Pro-B Natriuret Pep Total Protein Albumin LDL Cholesterol Direct HDL Cholesterol Urine WBC (Auto) 10/12/17 10/12/17 10/12/17 06:00 06:00 06:00 WBC 18.0 H MCH 27 L MCHC RDW 16.8 H Plt Count 89 L Eos % (Auto) Seg Neuts % (Manual) 87.0 H Lymphocytes % (Manual) 5.0 L Monocytes % (Manual) 8.0 H Seg Neutrophils # Man 15.7 H Lymphocytes # (Manual) 0.9 L Monocytes # (Manual) 1.4 H PT 53.3 H INR 5.39 H* APTT POC ABG pH POC ABG pCO2 POC ABG pO2 Sodium Potassium Carbon Dioxide 19 L BUN 145 H Creatinine 3.5 H Glucose 160 H POC Glucose Hemoglobin A1c Lactic Acid Calcium 12.0 H Phosphorus 5.90 H Magnesium Total Creatine Kinase Troponin T C-Reactive Protein NT-Pro-B Natriuret Pep Total Protein Albumin LDL Cholesterol Direct HDL Cholesterol Urine WBC (Auto) 10/12/17 10/12/17 10/12/17 08:18 11:45 13:40 WBC MCH MCHC RDW Plt Count Eos % (Auto) Seg Neuts % (Manual) Lymphocytes % (Manual) Monocytes % (Manual) Seg Neutrophils # Man Lymphocytes # (Manual) Monocytes # (Manual) PT INR APTT POC ABG pH POC ABG pCO2 POC ABG pO2 Sodium Potassium Carbon Dioxide BUN Creatinine Glucose POC Glucose 150 H 148 H Hemoglobin A1c Lactic Acid 2.20 H* Calcium Phosphorus Magnesium Total Creatine Kinase Troponin T C-Reactive Protein NT-Pro-B Natriuret Pep Total Protein Albumin LDL Cholesterol Direct HDL Cholesterol Urine WBC (Auto) 10/12/17 10/12/17 10/12/17 13:40 16:34 17:23 WBC MCH MCHC RDW Plt Count Eos % (Auto) Seg Neuts % (Manual) Lymphocytes % (Manual) Monocytes % (Manual) Seg Neutrophils # Man Lymphocytes # (Manual) Monocytes # (Manual) PT INR APTT POC ABG pH POC ABG pCO2 POC ABG pO2 Sodium Potassium Carbon Dioxide BUN Creatinine Glucose POC Glucose 182 H Hemoglobin A1c Lactic Acid 2.10 H* Calcium Phosphorus Magnesium Total Creatine Kinase Troponin T C-Reactive Protein 25.60 H NT-Pro-B Natriuret Pep Total Protein Albumin LDL Cholesterol Direct HDL Cholesterol Urine WBC (Auto) 10/12/17 10/12/17 10/12/17 18:35 20:38 21:44 WBC MCH MCHC RDW Plt Count Eos % (Auto) Seg Neuts % (Manual) Lymphocytes % (Manual) Monocytes % (Manual) Seg Neutrophils # Man Lymphocytes # (Manual) Monocytes # (Manual) PT INR APTT POC ABG pH 7.531 H POC ABG pCO2 27.0 L POC ABG pO2 78 L Sodium Potassium Carbon Dioxide BUN Creatinine Glucose POC Glucose 191 H Hemoglobin A1c Lactic Acid 2.70 H* Calcium Phosphorus Magnesium Total Creatine Kinase Troponin T C-Reactive Protein NT-Pro-B Natriuret Pep Total Protein Albumin LDL Cholesterol Direct HDL Cholesterol Urine WBC (Auto) 10/12/17 10/13/17 10/13/17 22:35 04:00 04:00 WBC MCH MCHC 35 H RDW 12.6 L Plt Count Eos % (Auto) 5.8 H Seg Neuts % (Manual) Lymphocytes % (Manual) Monocytes % (Manual) Seg Neutrophils # Man Lymphocytes # (Manual) Monocytes # (Manual) PT 24.1 H INR 2.01 H APTT POC ABG pH POC ABG pCO2 POC ABG pO2 Sodium Potassium Carbon Dioxide BUN Creatinine Glucose POC Glucose Hemoglobin A1c Lactic Acid 3.00 H* Calcium Phosphorus Magnesium Total Creatine Kinase Troponin T C-Reactive Protein NT-Pro-B Natriuret Pep Total Protein Albumin LDL Cholesterol Direct HDL Cholesterol Urine WBC (Auto) 10/13/17 10/13/17 10/13/17 04:00 04:00 05:27 WBC MCH MCHC RDW Plt Count Eos % (Auto) Seg Neuts % (Manual) Lymphocytes % (Manual) Monocytes % (Manual) Seg Neutrophils # Man Lymphocytes # (Manual) Monocytes # (Manual) PT INR APTT POC ABG pH POC ABG pCO2 POC ABG pO2 Sodium Potassium Carbon Dioxide BUN Creatinine Glucose POC Glucose 251 H Hemoglobin A1c Lactic Acid Calcium 8.3 L D Phosphorus Magnesium 1.60 L Total Creatine Kinase Troponin T C-Reactive Protein NT-Pro-B Natriuret Pep Total Protein Albumin LDL Cholesterol Direct HDL Cholesterol Urine WBC (Auto) Chest x-ray: pending Allied health notes reviewed: nursing
[2017-10-13] MEDS ORDERED: WATER FOR INJ IV ONE ×2 (11:00→11:04)
[2017-10-13] MEDS ORDERED: MAGNESIUM SULFATE 1 GM in NACL 0.9% 50 ML IV ONE (11:00)
[2017-10-13 11:27] LABS: Calcium 11.2 mg/dL (8.4-10.2)
--- NOTE | 2017-10-13 11:35 | Progress Note ---
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 Presence of indwelling cardiac defibrillator Polymorphic ventricular tachycardia normal TSH Device interrogation - 37 episodes of VT/VF with 2 shocks delivered since August 29 2017. Chronic atrial fibrillation, rate control on warfarin for chronic anticoagulation due currently on hold d/t supratherapeutic INR. The patient has multiple severe comorbidities, with poor prognosis. Supportive cardiac management. Subjective Date of service: 10/13/17 Principal diagnosis: Acute Hypoxemic Resp Failure; SUNDAR; Acute Encephalopathy; Torsades Interval history: Patient remains altered. Currently on Bipap. Objective Vital Signs Temp Pulse Pulse Pulse Resp Resp BP 10/13/17 08:00 82 30 H 104/35 10/13/17 07:36 82 33 H 104/35 10/13/17 07:00 79 23 85/31 10/13/17 06:00 76 26 H 121/40 10/13/17 05:00 82 26 H 119/47 10/13/17 04:00 86 82 77 23 89/39 10/13/17 03:00 70 25 H 109/46 10/13/17 02:57 98.2 F 10/13/17 02:00 86 24 104/37 10/13/17 01:00 74 26 H 101/35 10/13/17 00:02 70 37 H 92/32 10/13/17 00:00 67 82 82 23 92/32 10/12/17 23:00 65 24 117/34 10/12/17 22:57 98.5 F 10/12/17 22:00 78 22 24 95/42 10/12/17 21:24 71 98/36 10/12/17 21:00 79 24 104/32 10/12/17 20:00 98.4 F 86 71 71 35 H 96/40 10/12/17 19:00 71 21 105/58 10/12/17 18:00 78 78 25 H 114/56 10/12/17 17:00 84 20 120/54 10/12/17 16:00 99.8 F H 63 63 19 109/47 10/12/17 15:45 97.5 F L 62 18 133/56 10/12/17 15:30 65 84/46 05/17/18 15:20 83 86/35 0517/18 15:15 69 61/37 0517/18 15:00 76 22 98/43 0517/18 14:58 75 98/43 05/17/18 14:43 79 110/43 0517/18 14:29 72 103/47 05/17/18 14:15 68 93/43 0517/18 14:00 75 78 18 93/43 0517/18 13:45 72 87/39 0517/18 13:30 67 126/51 0517/18 13:15 97.5 F L 97 H 24 126/51 05/18 13:00 67 26 H 131/47 05/18 12:00 70 70 21 131/47 05/18 11:48 97.5 F L Pulse Ox Pulse Ox 10/13/17 08:00 55 L 10/13/17 07:36 98 10/13/17 07:00 95 10/13/17 06:00 96 10/13/17 05:00 96 10/13/17 04:00 96 10/13/17 03:00 95 10/13/17 02:57 18 02:00 88 10/13/17 01:00 87 10/13/17 00:02 95 18 00:00 96 10/12/17 23:00 10/12/17 22:57 10/12/17 22:00 96 18 21:24 18 21:00 99 10/12/17 20:00 10/12/17 19:00 10/12/17 18:00 93 10/12/17 17:00 75 L 10/12/17 16:00 86 18 15:45 0518 15:30 0518 15:20 18 15:15 18 15:00 89 18 14:58 0518 14:43 0518 14:29 0518 14:15 05 14:00 78 L 10/12/17 13:45 10/12/17 13:30 18 13:15 97 10/12/17 13:00 93 10/12/17 12:00 94 10/12/17 11:48 - Physical Examination General: No Apparent Distress HEENT: Positive: PERRL Cardiac: Positive: irregularly irregular Neuro: Positive: Grossly Intact - Labs and Meds Coagulation 10/13/17 Range/Units 04:00 PT 24.1 H (12.2-14.9) Sec. INR 2.01 H (0.87-1.13) CBC 10/13/17 Range/Units 04:00 WBC 5.9 (4.5-11.0) K/mm3 RBC 4.76 (3.65-5.03) M/mm3 Hgb 13.5 (10.1-14.3) gm/dl Hct 38.6 (30.3-42.9) % Plt Count 368 D (140-440) K/mm3 Lymph # 1.6 (1.2-5.4) K/mm3 [place] # 0.4 (0.0-0.8) K/mm3 Eos # 0.3 (0.0-0.4) K/mm3 Baso # 0.0 (0.0-0.1) K/mm3 Comprehensive Metabolic Panel 10/13/17 10/13/17 Range/Units 04:00 10:52 Sodium 141 137 (137-145) mmol/L Potassium 4.3 5.0 (3.6-5.0) mmol/L Chloride 106.0 104.3 (98-107) mmol/L Carbon Dioxide 23 20 L (22-30) mmol/L BUN 9 (7-17) mg/dL Creatinine 0.7 D (0.7-1.2) mg/dL Glucose 87 252 H (65-100) mg/dL Calcium 8.3 L D (8.4-10.2) mg/dL - Allied health notes Allied health notes reviewed: nursing
[2017-10-13] MEDS: VITAMIN K *ORAL LIQUID PO SCH (12:31)
[2017-10-13] MEDS: UNASYN/NS 3 GM/100 ML 3 GM/100 ML BAG IV SCH ×2 (12:48→22:43)
[2017-10-13] MEDS: PEPCID PO SCH (12:49)
[2017-10-13] MEDS: ECOTRIN PO SCH (12:49)
[2017-10-13] MEDS: CORDARONE PO SCH ×2 (12:59→22:42)
[2017-10-13] MEDS ORDERED: MAGNESIUM SULFATE 2GM/50ML 2 GM/50 ML BAG IV ONE (13:00)
[2017-10-13] MEDS: SODIUM CHLORIDE FLUSH SYRINGE 10 ML IV SCH (13:53)
--- NOTE | 2017-10-13 14:23 | Progress Note ---
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 As per primary team Subjective Date of service: 10/13/17 Principal diagnosis: Acute Hypoxemic Resp Failure; SUNDAR; Acute Encephalopathy; Torsades Interval history: on face mask, does not answer questions, family at bedside Objective - Vital Signs Vital signs: Vital Signs - 12hr 10/13/17 10/13/17 10/13/17 02:57 03:00 04:00 Temperature 98.2 F Pulse Rate 70 86 Pulse Rate [ 82 Apical] Pulse Rate [ 77 From Monitor] Respiratory 25 H 23 Rate Blood Pressure 109/46 89/39 O2 Sat by Pulse 95 96 Oximetry 10/13/17 10/13/17 10/13/17 05:00 06:00 07:00 Temperature Pulse Rate 82 76 79 Pulse Rate [ Apical] Pulse Rate [ From Monitor] Respiratory 26 H 26 H 23 Rate Blood Pressure 119/47 121/40 85/31 O2 Sat by Pulse 96 96 95 Oximetry 10/13/17 10/13/17 10/13/17 07:36 08:00 11:47 Temperature Pulse Rate 82 82 79 Pulse Rate [ Apical] Pulse Rate [ From Monitor] Respiratory 33 H 30 H 30 H Rate Blood Pressure 104/35 104/35 119/42 O2 Sat by Pulse 98 55 L 97 Oximetry - General Appearance General appearance: cachectic, moderate distress EENT: mucous membranes dry Neck: JVD Respiratory: Present: Rales, Ronchi Cardiology: tachycardia Gastrointestinal: normoactive bowel sounds, no tenderness, no distended Integumentary: no rash, warm and dry Neurologic: other (does not follow commands) Musculoskeletal: other (trace pitting edema in BLE) Psychiatric: other (does not answer questions) - Lab 10/13/17 04:00 10/13/17 10:52 Most recent lab results Calcium 11.2 mg/dL (8.4-10.2) H D 10/13/17 10:52 Phosphorus 3.10 mg/dL (2.5-4.5) D 10/13/17 04:00 Magnesium 1.60 mg/dL (1.7-2.3) L 10/13/17 04:00
--- NOTE | 2017-10-13 14:58 | Progress Note ---
Assessment and Plan Assessment and plan: Acute Encephalopathy * POSSIBLE Uremic encephalopathy * Discussed with Cardiology and Nephrology. Patient will be dialyzed, Torades-Arrythemia Cardiology following Acute on chronic systolic CHF. lasix iv. Coreg, on hold for now because of low BP. Will resume when BP improves Started on Milrinone infusion yesterday Diabetes mellitus Type 2. Fingerstick glucose QAC AND hs Hypotension. Improving BP, Coreg and Norvasc on hold. Acute Kidney Injury. Creatinine 2.7 today, worse than yesterday Nephrology following Atrial fibrillation with controlled ventricular response, On Coumadin. Coumadin on hold since admission, because INR high 4.73 today Daily INR DVT prophylaxis. On Coumadin Full code status. Family agreeable to Hospice on Discharge. At this time arrangement is being made for SNF. patient still too sick for transfer. The high probability of a clinically significant, sudden or life threatening deterioration of the [cardiac, neurology] system(s) required my full and direct attention, intervention and personal management. The aggregate critical care time was [45] minutes. This time is in addition to time spent performing reported procedures but includes the following: [x] Data Review and interpretation [x] Patient assessment and monitoring of vital signs [x] Documentation [x] Medication orders and management History Interval history: Patient seen and examined this remains confused not following commands. Still with cardiac arrhythmia this morning. Hospitalist Physical - Physical exam Narrative exam: General:Not in acute distress, lying in bed, HEENT:Normocephalic, atraumatic Neck:supple,no JVD Lungs: Clear to auscultation, no rales, no wheeze Heart:S1 and S2 regular, no murmurs, rubs or gallop Abd: soft, non tender,non distended, normal bowel sounds Ext: Bilateral lower extremity edema, large blisters both lower ext, no clubbing or cyanosis Neuro: Confused, not following commands, very stuporus, moves all extremities, Skin:dark pigmentation, blisters - Constitutional Vitals: Temp Pulse Resp BP Pulse Ox 98.2 F 80 38 H 113/54 94 10/13/17 02:57 10/13/17 14:54 10/13/17 14:54 10/13/17 14:54 10/13/17 14:54 General appearance: Present: well-nourished Results - Labs CBC & Chem 7: 10/14/17 05:45 10/14/17 05:45 Labs: Laboratory Last Values WBC 5.9 K/mm3 (4.5-11.0) 10/13/17 04:00 RBC 4.76 M/mm3 (3.65-5.03) 10/13/17 04:00 Hgb 13.5 gm/dl (10.1-14.3) 10/13/17 04:00 Hct 38.6 % (30.3-42.9) 10/13/17 04:00 MCV 81 fl (79-97) 10/13/17 04:00 MCH 28 pg (28-32) 10/13/17 04:00 MCHC 35 % (30-34) H 10/13/17 04:00 RDW 12.6 % (13.2-15.2) L 10/13/17 04:00 Plt Count 368 K/mm3 (140-440) D 10/13/17 04:00 Lymph % (Auto) 27.3 % (13.4-35.0) 10/13/17 04:00 [place] % (Auto) 7.1 % (0.0-7.3) 10/13/17 04:00 Eos % (Auto) 5.8 % (0.0-4.3) H 10/13/17 04:00 Baso % (Auto) 0.6 % (0.0-1.8) 10/13/17 04:00 Lymph # 1.6 K/mm3 (1.2-5.4) 10/13/17 04:00 [place] # 0.4 K/mm3 (0.0-0.8) 10/13/17 04:00 Eos # 0.3 K/mm3 (0.0-0.4) 10/13/17 04:00 Baso # 0.0 K/mm3 (0.0-0.1) 10/13/17 04:00 Add Manual Diff Complete 10/12/17 06:00 Total Counted 100 10/12/17 06:00 Seg Neutrophils % 59.2 % (40.0-70.0) 10/13/17 04:00 Seg Neuts % (Manual) 87.0 % (40.0-70.0) H 10/12/17 06:00 Band Neutrophils % 0 % 10/12/17 06:00 Lymphocytes % (Manual) 5.0 % (13.4-35.0) L 10/12/17 06:00 Reactive Lymphs % (Man) 0 % 10/12/17 06:00 Monocytes % (Manual) 8.0 % (0.0-7.3) H 10/12/17 06:00 Eosinophils % (Manual) 0 % (0.0-4.3) 10/12/17 06:00 Basophils % (Manual) 0 % (0.0-1.8) 10/12/17 06:00 Metamyelocytes % 0 % 10/12/17 06:00 Myelocytes % 0 % 10/12/17 06:00 Promyelocytes % 0 % 10/12/17 06:00 Blast Cells % 0 % 10/12/17 06:00 Nucleated RBC % Not Reportable 10/12/17 06:00 Seg Neutrophils # 3.5 K/mm3 (1.8-7.7) 10/13/17 04:00 Seg Neutrophils # Man 15.7 K/mm3 (1.8-7.7) H 10/12/17 06:00 Band Neutrophils # 0.0 K/mm3 10/12/17 06:00 Lymphocytes # (Manual) 0.9 K/mm3 (1.2-5.4) L 10/12/17 06:00 Abs React Lymphs (Man) 0.0 K/mm3 10/12/17 06:00 Monocytes # (Manual) 1.4 K/mm3 (0.0-0.8) H 10/12/17 06:00 Eosinophils # (Manual) 0.0 K/mm3 (0.0-0.4) 10/12/17 06:00 Basophils # (Manual) 0.0 K/mm3 (0.0-0.1) 10/12/17 06:00 Metamyelocytes # 0.0 K/mm3 10/12/17 06:00 Myelocytes # 0.0 K/mm3 10/12/17 06:00 Promyelocytes # 0.0 K/mm3 10/12/17 06:00 Blast Cells # 0.0 K/mm3 10/12/17 06:00 WBC Morphology Not Reportable 10/12/17 06:00 Hypersegmented Neuts Not Reportable 10/12/17 06:00 Hyposegmented Neuts Not Reportable 10/12/17 06:00 Hypogranular Neuts Not Reportable 10/12/17 06:00 Smudge Cells Not Reportable 10/12/17 06:00 Toxic Granulation Not Reportable 10/12/17 06:00 Toxic Vacuolation Not Reportable 10/12/17 06:00 Dohle Bodies Not Reportable 10/12/17 06:00 Pelger-Huet Anomaly Not Reportable 10/12/17 06:00 Bennie Rods Not Reportable 10/12/17 06:00 Platelet Estimate Appears decreased 10/12/17 06:00 Clumped Platelets Not Reportable 10/12/17 06:00 Plt Clumps, EDTA Not Reportable 10/12/17 06:00 Large Platelets Not Reportable 10/12/17 06:00 Giant Platelets Not Reportable 10/12/17 06:00 Platelet Satelliting Not Reportable 10/12/17 06:00 Plt Morphology Comment Not Reportable 10/12/17 06:00 RBC Morphology Not Reportable 10/12/17 06:00 Dimorphic RBCs Not Reportable 10/12/17 06:00 Polychromasia Not Reportable 10/12/17 06:00 Hypochromasia Not Reportable 10/12/17 06:00 Poikilocytosis Not Reportable 10/12/17 06:00 Anisocytosis 1+ 10/12/17 06:00 Microcytosis Not Reportable 10/12/17 06:00 Macrocytosis Not Reportable 10/12/17 06:00 Spherocytes Few 10/12/17 06:00 Pappenheimer Bodies Not Reportable 10/12/17 06:00 Sickle Cells Not Reportable 10/12/17 06:00 Target Cells Not Reportable 10/12/17 06:00 Tear Drop Cells Not Reportable 10/12/17 06:00 Ovalocytes Not Reportable 10/12/17 06:00 Helmet Cells Not Reportable 10/12/17 06:00 Lambert-Fay Bodies Not Reportable 10/12/17 06:00 Belt Rings Not Reportable 10/12/17 06:00 [place] Cells Few 10/12/17 06:00 Bite Cells Not Reportable 10/12/17 06:00 Crenated Cell Not Reportable 10/12/17 06:00 Elliptocytes Not Reportable 10/12/17 06:00 Acanthocytes (Spur) Not Reportable 10/12/17 06:00 Rouleaux Not Reportable 10/12/17 06:00 Hemoglobin C Crystals Not Reportable 10/12/17 06:00 Schistocytes Not Reportable 10/12/17 06:00 Malaria parasites Not Reportable 10/12/17 06:00 Earl Bodies Not Reportable 10/12/17 06:00 Hem Pathologist Commnt No 10/12/17 06:00 PT 24.1 Sec. (12.2-14.9) H 10/13/17 04:00 INR 2.01 (0.87-1.13) H 10/13/17 04:00 APTT 51.7 Sec. (24.2-36.6) H 10/07/17 13:03 POC ABG pH 7.531 (7.35-7.45) H 10/12/17 20:38 POC ABG pCO2 27.0 (35-45) L 10/12/17 20:38 POC ABG pO2 78 (80-105) L 10/12/17 20:38 POC ABG HCO3 22.6 10/12/17 20:38 POC ABG Total CO2 23 10/12/17 20:38 POC ABG O2 Sat 97 10/12/17 20:38 POC ABG Base Excess 0 10/12/17 20:38 FiO2 35 % 10/12/17 20:38 Sodium 137 mmol/L (137-145) 10/13/17 10:52 Potassium 5.0 mmol/L (3.6-5.0) 10/13/17 10:52 Chloride 104.3 mmol/L (98-107) 10/13/17 10:52 Carbon Dioxide 20 mmol/L (22-30) L 10/13/17 10:52 Anion Gap 18 mmol/L 10/13/17 10:52 BUN 112 mg/dL (7-17) H 10/13/17 10:52 Creatinine 2.7 mg/dL (0.7-1.2) H D 10/13/17 10:52 Estimated GFR 21 ml/min 10/13/17 10:52 BUN/Creatinine Ratio 41 % 10/13/17 10:52 Glucose 252 mg/dL (65-100) H 10/13/17 10:52 POC Glucose 282 (70-105) H 10/13/17 13:08 Hemoglobin A1c 6.6 % (4-6) H 10/07/17 13:03 Lactic Acid 2.10 mmol/L (0.7-2.0) H* 10/13/17 13:46 Calcium 11.2 mg/dL (8.4-10.2) H D 10/13/17 10:52 Phosphorus 3.10 mg/dL (2.5-4.5) D 10/13/17 04:00 Magnesium 1.60 mg/dL (1.7-2.3) L 10/13/17 04:00 Total Bilirubin 0.70 mg/dL (0.1-1.2) 10/08/17 08:37 AST 20 units/L (5-40) 10/08/17 08:37 ALT 12 units/L (7-56) 10/08/17 08:37 Alkaline Phosphatase 73 units/L (35-129) 10/08/17 08:37 Total Creatine Kinase 182 units/L (30-135) H 10/08/17 08:37 CK-MB (CK-2) 3.1 ng/mL (0.0-4.0) 10/08/17 08:37 CK-MB (CK-2) Rel Index 1.7 (0-4) 10/08/17 08:37 Troponin T 0.058 ng/mL (0.00-0.029) H 10/08/17 08:37 C-Reactive Protein 25.60 mg/dL (0.00-1.30) H 10/12/17 13:40 NT-Pro-B Natriuret Pep 85229 pg/mL (0-900) H 10/07/17 13:03 Total Protein 5.6 g/dL (6.3-8.2) L 10/08/17 08:37 Albumin 1.7 g/dL (3.9-5) L 10/08/17 08:37 Albumin/Globulin Ratio 0.4 % 10/08/17 08:37 Triglycerides 69 mg/dL (2-149) 10/07/17 13:03 Cholesterol 80 mg/dL (50-199) 10/07/17 13:03 LDL Cholesterol Direct 23 mg/dL (50-130) L 10/07/17 13:03 HDL Cholesterol 29 mg/dL (40-59) L 10/07/17 13:03 Cholesterol/HDL Ratio 2.75 % 10/07/17 13:03 TSH 0.996 mlU/mL (0.270-4.200) 10/09/17 12:36 Urine Color Astrid (Yellow) 10/11/17 10:50 Urine Turbidity Clear (Clear) 10/11/17 10:50 Urine pH 5.0 (5.0-7.0) 10/11/17 10:50 Ur Specific [place] 1.016 (1.003-1.030) 10/11/17 10:50 Urine Protein <15 mg/dl mg/dL (Negative) 10/11/17 10:50 Urine Glucose (UA) Neg mg/dL (Negative) 10/11/17 10:50 Urine Ketones Neg mg/dL (Negative) 10/11/17 10:50 Urine Blood Neg (Negative) 10/11/17 10:50 Urine Nitrite Neg (Negative) 10/11/17 10:50 Urine Bilirubin Neg (Negative) 10/11/17 10:50 Urine Urobilinogen 2.0 mg/dL (<2.0) 10/11/17 10:50 Ur Leukocyte Esterase Sm (Negative) 10/11/17 10:50 Urine WBC (Auto) 16.0 /HPF (0.0-6.0) H 10/11/17 10:50 Urine RBC (Auto) 3.0 /HPF (0.0-6.0) 10/11/17 10:50 U Epithel Cells (Auto) 1.0 /HPF (0-13.0) 10/11/17 10:50 Urine Bacteria (Auto) 4+ /HPF (Negative) 10/11/17 10:50 Urine WBC Clumps 2+ /HPF 10/07/17 14:36 Urine Mucus 2+ /HPF 10/11/17 10:50 Urine Yeast (Budding) 1+ /HPF 10/07/17 14:36 Digoxin 1.8 ng/mL (0.9-2.0) 10/11/17 18:45 Hepatitis A IgM Ab Non-reactive (NonReactive) 10/12/17 10:09 Hep Bs Antigen Non-reactive (Negative) 10/12/17 10:09 Hep B Core IgM Ab Non-reactive (NonReactive) 10/12/17 10:09 Hepatitis C Antibody Non-reactive (NonReactive) 10/12/17 10:09
[2017-10-13] MEDS ORDERED: VANCOMYCIN/NS 1 GM/250 ML 1 GM/250 ML BAG IV ONE (16:00)
[2017-10-14] MEDS: HumaLOG SUB-Q SCH ×5 (00:54→21:50)
[2017-10-14] MEDS: SODIUM CHLORIDE FLUSH SYRINGE 10 ML IV SCH ×4 (00:55→22:03)
[2017-10-14] MEDS: LEVOPHED DRIP 4 MG/NS 250 ML 4 MG/250 ML BAG IV SCH ×2 (05:53→18:28)
[2017-10-14 06:27] LABS: Calcium 10.5 mg/dL (8.4-10.2); Hematocrit 32.9 % (30.3-42.9); Hemoglobin 10.3 gm/dl (10.1-14.3); Mean Corpuscular HGB Conc 31 % (30-34); Mean Corpuscular Hemoglobin 27 pg (28-32); Mean Corpuscular Volume 86 fl (79-97); Platelet Count 119 K/mm3 (140-440); Red Blood Count 3.83 M/mm3 (3.65-5.03); Red Cell Distribution Width 17.1 % (13.2-15.2)
[2017-10-14 06:36] LABS: INR 1.17 (0.87-1.13)
[2017-10-14 07:28] LABS: Band Neutrophils # (Manual) 4.1 K/mm3; Basophils % (Manual) 0 % (0.0-1.8); Eosinophils % (Manual) 0 % (0.0-4.3); Total Cells Counted 100
[2017-10-14 07:29] LABS: Anisocytosis 1+; Platelet Estimate Consistent w Auto
[2017-10-14] MEDS ORDERED: NACL 0.9% IV SCH ×2 (08:00→10:00)
[2017-10-14] MEDS ORDERED: CUBICIN IV SCH ×2 (08:00→10:00)
[2017-10-14] MEDS: SODIUM BICARBONATE FEEDTUBE SCH ×3 (08:00→21:50)
--- NOTE | 2017-10-14 09:15 | Progress Note ---
Subjective Date of service: 10/14/17 Principal diagnosis: Acute Hypoxemic Resp Failure; SUNDAR; Acute Encephalopathy; Torsades Interval history: Patient seen and examined Patient continues to be altered Tele - reviewed, no events overnight GPC Bacteremia noted (4/4 bottles) in the setting of SC AICD (device implanted 05/2012) Patient also has a right femoral vascath Pt now DNR/DNI, hospice, will hold on VANE. Continue IV antibiotics Prognosis is poor (Heart failure, renal failure, respiratory failure and septic shock) Objective Vital Signs Temp Pulse Pulse Resp Resp BP Pulse Ox 10/14/17 07:56 97.9 F 10/14/17 07:16 77 13 135/47 100 10/14/17 07:00 61 12 135/47 99 10/14/17 06:46 66 12 140/63 98 10/14/17 06:30 113/51 97 10/14/17 06:16 61 22 113/51 100 10/14/17 06:00 65 17 113/51 100 10/14/17 05:46 64 19 114/49 96 10/14/17 05:45 64 19 96 10/14/17 05:30 65 17 114/49 100 10/14/17 05:16 66 22 110/49 95 10/14/17 05:00 64 18 110/49 97 10/14/17 04:46 63 18 110/43 100 10/14/17 04:30 63 19 110/43 100 10/14/17 04:16 64 23 99/45 100 10/14/17 04:00 68 18 108/53 99 10/14/17 03:46 65 20 99/45 99 10/14/17 03:30 58 L 20 99/45 100 10/14/17 03:16 67 23 97/42 96 10/14/17 03:00 68 25 H 101/54 97 10/14/17 02:52 97.5 F L 10/14/17 02:46 62 22 101/46 100 10/14/17 02:30 66 23 97/42 96 10/14/17 02:16 64 21 97/42 100 10/14/17 02:00 88 18 101/46 87 10/14/17 01:46 69 22 94/39 88 10/14/17 01:30 69 26 H 97/42 100 05/19/18 01:15 71 25 H 94/39 98 05/19/18 01:00 85 12 104/38 89 05/19/18 00:46 68 22 104/38 98 05/19/18 00:30 73 17 131/65 98 05/19/18 00:16 70 19 121/55 95 05/19/18 00:00 97.8 F 87 15 131/65 98 05/18/18 23:46 73 21 116/58 100 05/18/18 23:45 73 21 100 05/18/18 23:30 68 25 H 121/55 100 05/18/18 23:16 75 22 116/58 100 05/18/18 23:00 69 28 H 116/58 100 05/18/18 22:46 72 28 H 121/47 100 05/18/18 22:30 74 31 H 121/47 100 05/18/18 22:16 70 30 H 103/48 100 05/18/18 22:00 75 33 H 115/64 100 05/18/18 21:46 75 42 H 116/47 98 05/18/18 21:30 76 26 H 116/47 98 05/18/18 21:16 74 34 H 116/47 100 05/18/18 21:00 73 35 H 116/47 99 05/18/18 20:46 74 41 H 102/51 99 05/18/18 20:30 75 35 H 102/51 98 05/18/18 20:20 79 33 H 97 05/18/18 20:16 79 33 H 104/55 97 05/18/18 20:00 97.4 F L 74 26 H 107/47 99 05/18/18 19:46 78 28 H 132/59 96 05/18/18 19:42 75 33 H 104/55 96 05/18/18 19:41 96 05/18/18 19:30 76 18 110/47 91 05/18/18 19:16 77 33 H 110/47 76 L 05/18/18 19:00 76 35 H 132/59 100 05/18/18 18:46 85 26 H 110/47 86 05/18/18 18:30 96 H 35 H 125/39 91 05/18/18 18:16 79 37 H 125/39 94 05/18/18 18:00 73 38 H 115/45 85 05/18/18 17:46 69 29 H 115/45 98 10/13/17 17:30 66 32 H 103/53 97 10/13/17 17:16 73 38 H 103/53 94 10/13/17 17:00 74 24 118/62 98 10/13/17 16:46 69 31 H 118/62 97 10/13/17 16:30 73 24 120/44 96 10/13/17 16:16 77 30 H 120/44 91 10/13/17 16:00 77 26 H 120/44 100 10/13/17 15:46 76 25 H 96/45 100 10/13/17 15:30 73 29 H 114/39 100 10/13/17 15:00 72 38 H 113/54 100 10/13/17 14:54 80 38 H 113/54 94 10/13/17 14:00 82 30 H 111/58 100 10/13/17 13:00 82 24 122/68 96 10/13/17 12:00 98.7 F 79 36 H 103/48 84 10/13/17 11:47 79 30 H 119/42 97 10/13/17 11:00 81 35 H 109/45 87 10/13/17 10:00 79 33 H 24 114/58 95 - Physical Examination General: No Apparent Distress HEENT: Positive: PERRL Neck: Positive: neck supple Neuro: Positive: Grossly Intact Abdomen: Positive: Soft Skin: Positive: Clear Extremities: Present: +1 Edema (with chronic stasis changes) - Labs and Meds Coagulation 10/14/17 Range/Units 05:45 PT 15.5 H (12.2-14.9) Sec. INR 1.17 H (0.87-1.13) CBC 10/14/17 Range/Units 05:45 WBC 24.1 H (4.5-11.0) K/mm3 RBC 3.83 (3.65-5.03) M/mm3 Hgb 10.3 D (10.1-14.3) gm/dl Hct 32.9 (30.3-42.9) % Plt Count 119 L (140-440) K/mm3 Comprehensive Metabolic Panel 10/13/17 10/14/17 Range/Units 10:52 05:45 Sodium 137 142 (137-145) mmol/L Potassium 5.0 5.0 (3.6-5.0) mmol/L Chloride 104.3 105.8 (98-107) mmol/L Carbon Dioxide 20 L 19 L (22-30) mmol/L BUN 112 H 138 H (7-17) mg/dL Creatinine 2.7 H D 3.1 H (0.7-1.2) mg/dL Glucose 252 H 396 H (65-100) mg/dL Calcium 11.2 H D 10.5 H (8.4-10.2) mg/dL - Imaging and Cardiology EKG: report reviewed - Allied health notes Allied health notes reviewed: nursing
--- NOTE | 2017-10-14 09:58 | Progress Note ---
Assessment and Plan Acute Encephalopathy * POSSIBLE Uremic encephalopathy * Discussed with Cardiology and Nephrology. Patient will be dialyzed, Torades-Arrythemia Cardiology following Acute on chronic systolic CHF. lasix iv. Coreg, on hold for now because of low BP. Will resume when BP improves Started on Milrinone infusion yesterday Diabetes mellitus Type 2. Fingerstick glucose QAC AND hs Hypotension. Improving BP, Coreg and Norvasc on hold. Acute Kidney Injury. Creatinine 2.7 today, worse than yesterday Nephrology following Atrial fibrillation with controlled ventricular response, On Coumadin. Coumadin on hold since admission, because INR high 4.73 today Daily INR DVT prophylaxis. On Coumadin Full code status. Family agreeable to Hospice on Discharge. At this time arrangement is being made for SNF. patient still too sick for transfer. The high probability of a clinically significant, sudden or life threatening deterioration of the [cardiac, neurology] system(s) required my full and direct attention, intervention and personal management. The aggregate critical care time was [45] minutes. This time is in addition to time spent performing reported procedures but includes the following: Subjective Date of service: 10/14/17 Principal diagnosis: Acute Hypoxemic Resp Failure; SUNDAR; Acute Encephalopathy; Torsades Interval history: Patient seen and examined. Lying quietly in bed. No new coomplaint Objective - Constitutional Vitals: Vital Signs - 12hr 10/13/17 10/13/17 10/13/17 22:00 22:16 22:30 Temperature Pulse Rate 75 70 74 Pulse Rate [ From Monitor] Respiratory 33 H 30 H 31 H Rate Blood Pressure 115/64 103/48 121/47 O2 Sat by Pulse 100 100 100 Oximetry 10/13/17 10/13/17 10/13/17 22:46 23:00 23:16 Temperature Pulse Rate 72 69 75 Pulse Rate [ From Monitor] Respiratory 28 H 28 H 22 Rate Blood Pressure 121/47 116/58 116/58 O2 Sat by Pulse 100 100 100 Oximetry 10/13/17 10/13/17 10/13/17 23:30 23:45 23:46 Temperature Pulse Rate 68 73 Pulse Rate [ 73 From Monitor] Respiratory 25 H 21 21 Rate Blood Pressure 121/55 116/58 O2 Sat by Pulse 100 100 100 Oximetry 10/14/17 10/14/17 10/14/17 00:00 00:16 00:30 Temperature 97.8 F Pulse Rate 87 70 73 Pulse Rate [ From Monitor] Respiratory 15 19 17 Rate Blood Pressure 131/65 121/55 131/65 O2 Sat by Pulse 98 95 98 Oximetry 10/14/17 10/14/17 10/14/17 00:46 01:00 01:15 Temperature Pulse Rate 68 85 71 Pulse Rate [ From Monitor] Respiratory 22 12 25 H Rate Blood Pressure 104/38 104/38 94/39 O2 Sat by Pulse 98 89 98 Oximetry 10/14/17 10/14/17 10/14/17 01:30 01:46 02:00 Temperature Pulse Rate 69 69 88 Pulse Rate [ From Monitor] Respiratory 26 H 22 18 Rate Blood Pressure 97/42 94/39 101/46 O2 Sat by Pulse 100 88 87 Oximetry 10/14/17 10/14/17 10/14/17 02:16 02:30 02:46 Temperature Pulse Rate 64 66 62 Pulse Rate [ From Monitor] Respiratory 21 23 22 Rate Blood Pressure 97/42 97/42 101/46 O2 Sat by Pulse 100 96 100 Oximetry 10/14/17 10/14/17 10/14/17 02:52 03:00 03:16 Temperature 97.5 F L Pulse Rate 68 67 Pulse Rate [ From Monitor] Respiratory 25 H 23 Rate Blood Pressure 101/54 97/42 O2 Sat by Pulse 97 96 Oximetry 10/14/17 10/14/17 10/14/17 03:30 03:46 04:00 Temperature Pulse Rate 58 L 65 68 Pulse Rate [ From Monitor] Respiratory 20 20 18 Rate Blood Pressure 99/45 99/45 108/53 O2 Sat by Pulse 100 99 99 Oximetry 10/14/17 10/14/17 10/14/17 04:16 04:30 04:46 Temperature Pulse Rate 64 63 63 Pulse Rate [ From Monitor] Respiratory 23 19 18 Rate Blood Pressure 99/45 110/43 110/43 O2 Sat by Pulse 100 100 100 Oximetry 10/14/17 10/14/17 10/14/17 05:00 05:16 05:30 Temperature Pulse Rate 64 66 65 Pulse Rate [ From Monitor] Respiratory 18 22 17 Rate Blood Pressure 110/49 110/49 114/49 O2 Sat by Pulse 97 95 100 Oximetry 10/14/17 10/14/17 10/14/17 05:45 05:46 06:00 Temperature Pulse Rate 64 65 Pulse Rate [ 64 From Monitor] Respiratory 19 19 17 Rate Blood Pressure 114/49 113/51 O2 Sat by Pulse 96 96 100 Oximetry 10/14/17 10/14/17 10/14/17 06:16 06:30 06:46 Temperature Pulse Rate 61 66 Pulse Rate [ From Monitor] Respiratory 22 12 Rate Blood Pressure 113/51 113/51 140/63 O2 Sat by Pulse 100 97 98 Oximetry 10/14/17 10/14/17 10/14/17 07:00 07:16 07:56 Temperature 97.9 F Pulse Rate 61 77 Pulse Rate [ From Monitor] Respiratory 12 13 Rate Blood Pressure 135/47 135/47 O2 Sat by Pulse 99 100 Oximetry General appearance: Present: no acute distress, well-nourished - EENT Eyes: PERRL, EOM intact - Neck Neck: supple, normal ROM - Respiratory Respiratory effort: normal Respiratory: bilateral: diminished - Cardiovascular Rhythm: regular Heart Sounds: Present: S1 & S2. Absent: gallop, rub Extremities: pulses intact, No edema, normal color, Full ROM - Gastrointestinal General gastrointestinal: Present: soft, non-tender, non-distended, normal bowel sounds - Integumentary Integumentary: clear, warm, dry - Musculoskeletal Musculoskeletal: other (lethergic) - Neurologic Neurologic: other - Psychiatric Psychiatric: memory intact, appropriate mood/affect, intact judgment & insight - Labs CBC & Chem 7: 10/14/17 05:45 10/14/17 05:45 Labs: Abnormal lab results 10/13/17 10/13/17 10/13/17 Range/Units 10:52 13:08 13:46 WBC (4.5-11.0) K/mm3 MCH (28-32) pg RDW (13.2-15.2) % Plt Count (140-440) K/mm3 Seg Neuts % (Manual) (40.0-70.0) % Lymphocytes % (Manual) (13.4-35.0) % Seg Neutrophils # Man (1.8-7.7) K/mm3 Lymphocytes # (Manual) (1.2-5.4) K/mm3 Monocytes # (Manual) (0.0-0.8) K/mm3 PT (12.2-14.9) Sec. INR (0.87-1.13) Carbon Dioxide 20 L (22-30) mmol/L BUN 112 H (7-17) mg/dL Creatinine 2.7 H D (0.7-1.2) mg/dL Glucose 252 H (65-100) mg/dL POC Glucose 282 H (70-105) Lactic Acid 2.10 H* (0.7-2.0) mmol/L Calcium 11.2 H D (8.4-10.2) mg/dL Phosphorus (2.5-4.5) mg/dL Magnesium (1.7-2.3) mg/dL 10/13/17 10/14/17 10/14/17 Range/Units 19:51 00:27 05:24 WBC (4.5-11.0) K/mm3 MCH (28-32) pg RDW (13.2-15.2) % Plt Count (140-440) K/mm3 Seg Neuts % (Manual) (40.0-70.0) % Lymphocytes % (Manual) (13.4-35.0) % Seg Neutrophils # Man (1.8-7.7) K/mm3 Lymphocytes # (Manual) (1.2-5.4) K/mm3 Monocytes # (Manual) (0.0-0.8) K/mm3 PT (12.2-14.9) Sec. INR (0.87-1.13) Carbon Dioxide (22-30) mmol/L BUN (7-17) mg/dL Creatinine (0.7-1.2) mg/dL Glucose (65-100) mg/dL POC Glucose 284 H 365 H 335 H (70-105) Lactic Acid (0.7-2.0) mmol/L Calcium (8.4-10.2) mg/dL Phosphorus (2.5-4.5) mg/dL Magnesium (1.7-2.3) mg/dL 10/14/17 10/14/17 10/14/17 Range/Units 05:45 05:45 05:45 WBC 24.1 H (4.5-11.0) K/mm3 MCH 27 L (28-32) pg RDW 17.1 H (13.2-15.2) % Plt Count 119 L (140-440) K/mm3 Seg Neuts % (Manual) 77.0 H (40.0-70.0) % Lymphocytes % (Manual) 2.0 L (13.4-35.0) % Seg Neutrophils # Man 18.6 H (1.8-7.7) K/mm3 Lymphocytes # (Manual) 0.5 L (1.2-5.4) K/mm3 Monocytes # (Manual) 1.0 H (0.0-0.8) K/mm3 PT 15.5 H (12.2-14.9) Sec. INR 1.17 H (0.87-1.13) Carbon Dioxide (22-30) mmol/L BUN (7-17) mg/dL Creatinine (0.7-1.2) mg/dL Glucose (65-100) mg/dL POC Glucose (70-105) Lactic Acid (0.7-2.0) mmol/L Calcium (8.4-10.2) mg/dL Phosphorus 6.30 H D (2.5-4.5) mg/dL Magnesium (1.7-2.3) mg/dL 10/14/17 Range/Units 05:45 WBC (4.5-11.0) K/mm3 MCH (28-32) pg RDW (13.2-15.2) % Plt Count (140-440) K/mm3 Seg Neuts % (Manual) (40.0-70.0) % Lymphocytes % (Manual) (13.4-35.0) % Seg Neutrophils # Man (1.8-7.7) K/mm3 Lymphocytes # (Manual) (1.2-5.4) K/mm3 Monocytes # (Manual) (0.0-0.8) K/mm3 PT (12.2-14.9) Sec. INR (0.87-1.13) Carbon Dioxide 19 L (22-30) mmol/L BUN 138 H (7-17) mg/dL Creatinine 3.1 H (0.7-1.2) mg/dL Glucose 396 H (65-100) mg/dL POC Glucose (70-105) Lactic Acid (0.7-2.0) mmol/L Calcium 10.5 H (8.4-10.2) mg/dL Phosphorus (2.5-4.5) mg/dL Magnesium 2.80 H (1.7-2.3) mg/dL
[2017-10-14] MEDS: COREG PO SCH (11:49)
--- NOTE | 2017-10-14 12:11 | Progress Note ---
Assessment and Plan Acute Hypoxemic Respiratory Failure Bibasilar Pneumonia vs Atelectasis Acute Encephalopathy Malignant Ventricukar Arrythmia (Torsades) Acute CHF exacerbation Diabetes type II SUNDAR (now on Dialysis) Sepsis Syndrome Atrial Fibrillation - To resume dialysis and hopefully with electrolyte and azotemia improvement dysrythmia's improve (spoke with insurance sales producer) - CT brain negative - continue BIPAP for ventilatory support during dialysis as well as for alveolar recruitment and support while asleep - get lactate and CRP prn levels to assist with anti-infective therapy and de- escalation decisions - Milrinone drip adjustment per cardiology - continue glycemic control with SSI - Aspiration precautions - seen by ID and started on Unasyn - continue vancomycin - conservative volume management strategies re: CHF - stopped vitamin K - continue GI prophylaxis - continue other care per attending / other consultants .. now a DNR and family considering Hospice care but have not made a decision The high probability of a clinically significant, sudden or life threatening deterioration of the [cardiac, neurology] system(s) required my full and direct attention, intervention and personal management. The aggregate critical care time was [30] minutes without overlap. Time includes spent on; [x] Data Review and interpretation [x] Patient assessment and monitoring of vital signs [x] Documentation [x] Medication orders and management Subjective Date of service: 10/14/17 Principal diagnosis: Acute Hypoxemic Resp Failure; SUNDAR; Acute Encephalopathy; Torsades Interval history: Patient is seen today for: Acute Hypoxemic Respiratory Failure; Torsades; SUNDAR; Acute Encephalopathy; Sepsis Syndrome Seen and examined at bedside; 24hour events reviewed; nursing and respiratory care staff consulted; no adverse overnight events reported to me; resting in bed ; remains lethargic; welts over legs appear to be advancing; 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; no high grade fevers or chills; remains on levophed at 4 mics/min but weaning Objective Vital Signs - 12hr 10/14/17 10/14/17 10/14/17 00:16 00:30 00:46 Temperature Pulse Rate 70 73 68 Pulse Rate [ From Monitor] Respiratory 19 17 22 Rate Blood Pressure 121/55 131/65 104/38 O2 Sat by Pulse 95 98 98 Oximetry 10/14/17 10/14/17 10/14/17 01:00 01:15 01:30 Temperature Pulse Rate 85 71 69 Pulse Rate [ From Monitor] Respiratory 12 25 H 26 H Rate Blood Pressure 104/38 94/39 97/42 O2 Sat by Pulse 89 98 100 Oximetry 10/14/17 10/14/17 10/14/17 01:46 02:00 02:16 Temperature Pulse Rate 69 88 64 Pulse Rate [ From Monitor] Respiratory 22 18 21 Rate Blood Pressure 94/39 101/46 97/42 O2 Sat by Pulse 88 87 100 Oximetry 10/14/17 10/14/17 10/14/17 02:30 02:46 02:52 Temperature 97.5 F L Pulse Rate 66 62 Pulse Rate [ From Monitor] Respiratory 23 22 Rate Blood Pressure 97/42 101/46 O2 Sat by Pulse 96 100 Oximetry 10/14/17 10/14/17 10/14/17 03:00 03:16 03:30 Temperature Pulse Rate 68 67 58 L Pulse Rate [ From Monitor] Respiratory 25 H 23 20 Rate Blood Pressure 101/54 97/42 99/45 O2 Sat by Pulse 97 96 100 Oximetry 10/14/17 10/14/17 10/14/17 03:46 04:00 04:16 Temperature Pulse Rate 65 68 64 Pulse Rate [ From Monitor] Respiratory 20 18 23 Rate Blood Pressure 99/45 108/53 99/45 O2 Sat by Pulse 99 99 100 Oximetry 10/14/17 10/14/17 10/14/17 04:30 04:46 05:00 Temperature Pulse Rate 63 63 64 Pulse Rate [ From Monitor] Respiratory 19 18 18 Rate Blood Pressure 110/43 110/43 110/49 O2 Sat by Pulse 100 100 97 Oximetry 10/14/17 10/14/17 10/14/17 05:16 05:30 05:45 Temperature Pulse Rate 66 65 Pulse Rate [ 64 From Monitor] Respiratory 22 17 19 Rate Blood Pressure 110/49 114/49 O2 Sat by Pulse 95 100 96 Oximetry 10/14/17 10/14/17 10/14/17 05:46 06:00 06:16 Temperature Pulse Rate 64 65 61 Pulse Rate [ From Monitor] Respiratory 19 17 22 Rate Blood Pressure 114/49 113/51 113/51 O2 Sat by Pulse 96 100 100 Oximetry 10/14/17 10/14/17 10/14/17 06:30 06:46 07:00 Temperature Pulse Rate 66 61 Pulse Rate [ From Monitor] Respiratory 12 12 Rate Blood Pressure 113/51 140/63 135/47 O2 Sat by Pulse 97 98 99 Oximetry 10/14/17 10/14/17 10/14/17 07:16 07:56 12:00 Temperature 97.9 F 98.0 F Pulse Rate 77 Pulse Rate [ From Monitor] Respiratory 13 Rate Blood Pressure 135/47 O2 Sat by Pulse 100 Oximetry Constitutional: lethargic, appears uncomfortable, other (elderly looking AAF; normocephalic) Eyes: non-icteric ENT: oropharynx moist, other (30% Venti Mask) Neck: supple, no lymphadenopathy, no JVD, other (no thyromegaly) Effort: mildly labored Ascultation: Bilateral: diminished breath sounds, rales Percussion: Bilateral: not dull Cardiovascular: irregular rhythm, murmur noted, other (no rubs) Gastrointestinal: normoactive bowel sounds, soft, non-tender, non-distended, other (No palpable HSM) Integumentary: rash, other (welts over skin of feet and legs) Extremities: no cyanosis, pulses normal, no ischemia or petechiae, edema (2+) Neurologic: unable to assess Psychiatric: other (encephalopathic) CBC and BMP: 10/14/17 05:45 10/14/17 05:45 ABG, PT/INR, D-dimer: ABG POC ABG pH 7.531 (7.35-7.45) H 10/12/17 20:38 POC ABG pCO2 27.0 (35-45) L 10/12/17 20:38 POC ABG pO2 78 (80-105) L 10/12/17 20:38 POC ABG HCO3 22.6 10/12/17 20:38 POC ABG Total CO2 23 10/12/17 20:38 POC ABG O2 Sat 97 10/12/17 20:38 PT/INR, D-dimer PT 15.5 Sec. (12.2-14.9) H 10/14/17 05:45 INR 1.17 (0.87-1.13) H 10/14/17 05:45 Abnormal lab findings: Abnormal Labs 10/07/17 10/07/17 10/07/17 12:07 13:03 13:03 WBC 3.7 L MCH MCHC RDW 16.4 H Plt Count Eos % (Auto) Seg Neuts % (Manual) Lymphocytes % (Manual) 11.0 L Monocytes % (Manual) 14.0 H Seg Neutrophils # Man 1.6 L Lymphocytes # (Manual) 0.4 L Monocytes # (Manual) PT INR APTT POC ABG pH POC ABG pCO2 POC ABG pO2 Sodium Potassium Carbon Dioxide BUN Creatinine Glucose POC Glucose 159 H Hemoglobin A1c Lactic Acid Calcium Phosphorus Magnesium Total Creatine Kinase Troponin T C-Reactive Protein NT-Pro-B Natriuret Pep 56965 H Total Protein Albumin LDL Cholesterol Direct HDL Cholesterol Urine WBC (Auto) 10/07/17 10/07/17 10/07/17 13:03 13:03 13:03 WBC MCH MCHC RDW Plt Count Eos % (Auto) Seg Neuts % (Manual) Lymphocytes % (Manual) Monocytes % (Manual) Seg Neutrophils # Man Lymphocytes # (Manual) Monocytes # (Manual) PT 37.5 H INR 3.49 H APTT 51.7 H POC ABG pH POC ABG pCO2 POC ABG pO2 Sodium Potassium Carbon Dioxide 21 L BUN 58 H Creatinine 2.6 H Glucose 134 H POC Glucose Hemoglobin A1c Lactic Acid 2.50 H* Calcium Phosphorus Magnesium Total Creatine Kinase Troponin T 0.062 H C-Reactive Protein NT-Pro-B Natriuret Pep Total Protein 5.7 L Albumin 2.1 L LDL Cholesterol Direct 23 L HDL Cholesterol 29 L Urine WBC (Auto) 10/07/17 10/07/17 10/07/17 13:03 14:23 15:54 WBC MCH MCHC RDW Plt Count Eos % (Auto) Seg Neuts % (Manual) Lymphocytes % (Manual) Monocytes % (Manual) Seg Neutrophils # Man Lymphocytes # (Manual) Monocytes # (Manual) PT INR APTT POC ABG pH 7.345 L POC ABG pCO2 34.9 L POC ABG pO2 61 L Sodium Potassium Carbon Dioxide BUN Creatinine Glucose POC Glucose Hemoglobin A1c 6.6 H Lactic Acid 2.20 H* Calcium Phosphorus Magnesium Total Creatine Kinase Troponin T C-Reactive Protein NT-Pro-B Natriuret Pep Total Protein Albumin LDL Cholesterol Direct HDL Cholesterol Urine WBC (Auto) 10/08/17 10/08/17 10/08/17 05:58 06:28 06:45 WBC MCH MCHC RDW Plt Count Eos % (Auto) Seg Neuts % (Manual) Lymphocytes % (Manual) Monocytes % (Manual) Seg Neutrophils # Man Lymphocytes # (Manual) Monocytes # (Manual) PT INR APTT POC ABG pH POC ABG pCO2 POC ABG pO2 Sodium Potassium Carbon Dioxide BUN Creatinine Glucose POC Glucose 56 L 62 L 65 L Hemoglobin A1c Lactic Acid Calcium Phosphorus Magnesium Total Creatine Kinase Troponin T C-Reactive Protein NT-Pro-B Natriuret Pep Total Protein Albumin LDL Cholesterol Direct HDL Cholesterol Urine WBC (Auto) 10/08/17 10/08/17 10/08/17 08:37 08:37 08:37 WBC 3.3 L MCH MCHC RDW 16.8 H Plt Count Eos % (Auto) Seg Neuts % (Manual) Lymphocytes % (Manual) 10.0 L Monocytes % (Manual) 9.0 H Seg Neutrophils # Man Lymphocytes # (Manual) 0.3 L Monocytes # (Manual) PT 49.9 H INR 4.97 H APTT POC ABG pH POC ABG pCO2 POC ABG pO2 Sodium 134 L Potassium 5.4 H Carbon Dioxide 21 L BUN 69 H Creatinine 2.5 H Glucose 109 H POC Glucose Hemoglobin A1c Lactic Acid Calcium Phosphorus Magnesium Total Creatine Kinase Troponin T C-Reactive Protein NT-Pro-B Natriuret Pep Total Protein 5.6 L Albumin 1.7 L LDL Cholesterol Direct HDL Cholesterol Urine WBC (Auto) 10/08/17 10/08/17 10/08/17 08:37 17:34 21:35 WBC MCH MCHC RDW Plt Count Eos % (Auto) Seg Neuts % (Manual) Lymphocytes % (Manual) Monocytes % (Manual) Seg Neutrophils # Man Lymphocytes # (Manual) Monocytes # (Manual) PT INR APTT POC ABG pH POC ABG pCO2 POC ABG pO2 Sodium Potassium Carbon Dioxide BUN Creatinine Glucose POC Glucose 114 H 110 H Hemoglobin A1c Lactic Acid Calcium Phosphorus Magnesium Total Creatine Kinase 182 H Troponin T 0.058 H C-Reactive Protein NT-Pro-B Natriuret Pep Total Protein Albumin LDL Cholesterol Direct HDL Cholesterol Urine WBC (Auto) 10/09/17 10/09/17 10/09/17 05:15 07:31 07:31 WBC MCH MCHC RDW 16.7 H Plt Count Eos % (Auto) Seg Neuts % (Manual) 71.0 H Lymphocytes % (Manual) 6.0 L Monocytes % (Manual) 8.0 H Seg Neutrophils # Man Lymphocytes # (Manual) 0.5 L Monocytes # (Manual) PT 48.0 H INR 4.73 H APTT POC ABG pH POC ABG pCO2 POC ABG pO2 Sodium Potassium Carbon Dioxide BUN Creatinine Glucose POC Glucose 125 H Hemoglobin A1c Lactic Acid Calcium Phosphorus Magnesium Total Creatine Kinase Troponin T C-Reactive Protein NT-Pro-B Natriuret Pep Total Protein Albumin LDL Cholesterol Direct HDL Cholesterol Urine WBC (Auto) 10/09/17 10/09/17 10/09/17 07:31 11:20 16:11 WBC MCH MCHC RDW Plt Count Eos % (Auto) Seg Neuts % (Manual) Lymphocytes % (Manual) Monocytes % (Manual) Seg Neutrophils # Man Lymphocytes # (Manual) Monocytes # (Manual) PT INR APTT POC ABG pH POC ABG pCO2 POC ABG pO2 Sodium Potassium Carbon Dioxide 21 L BUN 82 H Creatinine 2.7 H Glucose 109 H POC Glucose 106 H 123 H Hemoglobin A1c Lactic Acid Calcium 10.7 H Phosphorus 5.40 H Magnesium Total Creatine Kinase Troponin T C-Reactive Protein NT-Pro-B Natriuret Pep Total Protein Albumin LDL Cholesterol Direct HDL Cholesterol Urine WBC (Auto) 10/09/17 10/10/17 10/10/17 21:23 06:13 06:13 WBC 13.5 H MCH 27 L MCHC RDW 16.7 H Plt Count 115 L Eos % (Auto) Seg Neuts % (Manual) 79.0 H Lymphocytes % (Manual) 5.0 L Monocytes % (Manual) Seg Neutrophils # Man 10.7 H Lymphocytes # (Manual) 0.7 L Monocytes # (Manual) PT 47.5 H INR 4.67 H APTT POC ABG pH POC ABG pCO2 POC ABG pO2 Sodium Potassium Carbon Dioxide BUN Creatinine Glucose POC Glucose 117 H Hemoglobin A1c Lactic Acid Calcium Phosphorus Magnesium Total Creatine Kinase Troponin T C-Reactive Protein NT-Pro-B Natriuret Pep Total Protein Albumin LDL Cholesterol Direct HDL Cholesterol Urine WBC (Auto) 10/10/17 10/10/17 10/11/17 06:13 21:24 04:04 WBC MCH MCHC RDW Plt Count Eos % (Auto) Seg Neuts % (Manual) Lymphocytes % (Manual) Monocytes % (Manual) Seg Neutrophils # Man Lymphocytes # (Manual) Monocytes # (Manual) PT 52.0 H INR 5.23 H* APTT POC ABG pH POC ABG pCO2 POC ABG pO2 Sodium Potassium Carbon Dioxide 19 L BUN 95 H Creatinine 3.0 H Glucose 105 H POC Glucose 121 H Hemoglobin A1c Lactic Acid Calcium 11.8 H Phosphorus 5.60 H Magnesium Total Creatine Kinase Troponin T C-Reactive Protein NT-Pro-B Natriuret Pep Total Protein Albumin LDL Cholesterol Direct HDL Cholesterol Urine WBC (Auto) 10/11/17 10/11/17 10/11/17 04:04 04:04 10:50 WBC 18.8 H MCH MCHC RDW 16.5 H Plt Count 86 L Eos % (Auto) Seg Neuts % (Manual) 85.0 H Lymphocytes % (Manual) 7.0 L Monocytes % (Manual) Seg Neutrophils # Man 16.0 H Lymphocytes # (Manual) Monocytes # (Manual) 0.9 H PT INR APTT POC ABG pH POC ABG pCO2 POC ABG pO2 Sodium Potassium 5.1 H Carbon Dioxide 17 L BUN 120 H Creatinine 3.3 H Glucose 105 H POC Glucose Hemoglobin A1c Lactic Acid Calcium 11.7 H Phosphorus 6.00 H Magnesium Total Creatine Kinase Troponin T C-Reactive Protein NT-Pro-B Natriuret Pep Total Protein Albumin LDL Cholesterol Direct HDL Cholesterol Urine WBC (Auto) 16.0 H 10/11/17 10/11/17 10/12/17 11:31 21:43 06:00 WBC MCH MCHC RDW Plt Count Eos % (Auto) Seg Neuts % (Manual) Lymphocytes % (Manual) Monocytes % (Manual) Seg Neutrophils # Man Lymphocytes # (Manual) Monocytes # (Manual) PT INR APTT POC ABG pH POC ABG pCO2 32.2 L POC ABG pO2 37 L Sodium Potassium Carbon Dioxide BUN Creatinine Glucose POC Glucose 115 H Hemoglobin A1c Lactic Acid Calcium Phosphorus Magnesium 2.50 H Total Creatine Kinase Troponin T C-Reactive Protein NT-Pro-B Natriuret Pep Total Protein Albumin LDL Cholesterol Direct HDL Cholesterol Urine WBC (Auto) 10/12/17 10/12/17 10/12/17 06:00 06:00 06:00 WBC 18.0 H MCH 27 L MCHC RDW 16.8 H Plt Count 89 L Eos % (Auto) Seg Neuts % (Manual) 87.0 H Lymphocytes % (Manual) 5.0 L Monocytes % (Manual) 8.0 H Seg Neutrophils # Man 15.7 H Lymphocytes # (Manual) 0.9 L Monocytes # (Manual) 1.4 H PT 53.3 H INR 5.39 H* APTT POC ABG pH POC ABG pCO2 POC ABG pO2 Sodium Potassium Carbon Dioxide 19 L BUN 145 H Creatinine 3.5 H Glucose 160 H POC Glucose Hemoglobin A1c Lactic Acid Calcium 12.0 H Phosphorus 5.90 H Magnesium Total Creatine Kinase Troponin T C-Reactive Protein NT-Pro-B Natriuret Pep Total Protein Albumin LDL Cholesterol Direct HDL Cholesterol Urine WBC (Auto) 10/12/17 10/12/17 10/12/17 08:18 11:45 13:40 WBC MCH MCHC RDW Plt Count Eos % (Auto) Seg Neuts % (Manual) Lymphocytes % (Manual) Monocytes % (Manual) Seg Neutrophils # Man Lymphocytes # (Manual) Monocytes # (Manual) PT INR APTT POC ABG pH POC ABG pCO2 POC ABG pO2 Sodium Potassium Carbon Dioxide BUN Creatinine Glucose POC Glucose 150 H 148 H Hemoglobin A1c Lactic Acid 2.20 H* Calcium Phosphorus Magnesium Total Creatine Kinase Troponin T C-Reactive Protein NT-Pro-B Natriuret Pep Total Protein Albumin LDL Cholesterol Direct HDL Cholesterol Urine WBC (Auto) 10/12/17 10/12/17 10/12/17 13:40 16:34 17:23 WBC MCH MCHC RDW Plt Count Eos % (Auto) Seg Neuts % (Manual) Lymphocytes % (Manual) Monocytes % (Manual) Seg Neutrophils # Man Lymphocytes # (Manual) Monocytes # (Manual) PT INR APTT POC ABG pH POC ABG pCO2 POC ABG pO2 Sodium Potassium Carbon Dioxide BUN Creatinine Glucose POC Glucose 182 H Hemoglobin A1c Lactic Acid 2.10 H* Calcium Phosphorus Magnesium Total Creatine Kinase Troponin T C-Reactive Protein 25.60 H NT-Pro-B Natriuret Pep Total Protein Albumin LDL Cholesterol Direct HDL Cholesterol Urine WBC (Auto) 10/12/17 10/12/17 10/12/17 18:35 20:38 21:44 WBC MCH MCHC RDW Plt Count Eos % (Auto) Seg Neuts % (Manual) Lymphocytes % (Manual) Monocytes % (Manual) Seg Neutrophils # Man Lymphocytes # (Manual) Monocytes # (Manual) PT INR APTT POC ABG pH 7.531 H POC ABG pCO2 27.0 L POC ABG pO2 78 L Sodium Potassium Carbon Dioxide BUN Creatinine Glucose POC Glucose 191 H Hemoglobin A1c Lactic Acid 2.70 H* Calcium Phosphorus Magnesium Total Creatine Kinase Troponin T C-Reactive Protein NT-Pro-B Natriuret Pep Total Protein Albumin LDL Cholesterol Direct HDL Cholesterol Urine WBC (Auto) 10/12/17 10/13/17 10/13/17 22:35 04:00 04:00 WBC MCH MCHC 35 H RDW 12.6 L Plt Count Eos % (Auto) 5.8 H Seg Neuts % (Manual) Lymphocytes % (Manual) Monocytes % (Manual) Seg Neutrophils # Man Lymphocytes # (Manual) Monocytes # (Manual) PT 24.1 H INR 2.01 H APTT POC ABG pH POC ABG pCO2 POC ABG pO2 Sodium Potassium Carbon Dioxide BUN Creatinine Glucose POC Glucose Hemoglobin A1c Lactic Acid 3.00 H* Calcium Phosphorus Magnesium Total Creatine Kinase Troponin T C-Reactive Protein NT-Pro-B Natriuret Pep Total Protein Albumin LDL Cholesterol Direct HDL Cholesterol Urine WBC (Auto) 10/13/17 10/13/17 10/13/17 04:00 04:00 05:27 WBC MCH MCHC RDW Plt Count Eos % (Auto) Seg Neuts % (Manual) Lymphocytes % (Manual) Monocytes % (Manual) Seg Neutrophils # Man Lymphocytes # (Manual) Monocytes # (Manual) PT INR APTT POC ABG pH POC ABG pCO2 POC ABG pO2 Sodium Potassium Carbon Dioxide BUN Creatinine Glucose POC Glucose 251 H Hemoglobin A1c Lactic Acid Calcium 8.3 L D Phosphorus Magnesium 1.60 L Total Creatine Kinase Troponin T C-Reactive Protein NT-Pro-B Natriuret Pep Total Protein Albumin LDL Cholesterol Direct HDL Cholesterol Urine WBC (Auto) 10/13/17 10/13/17 10/13/17 10:52 13:08 13:46 WBC MCH MCHC RDW Plt Count Eos % (Auto) Seg Neuts % (Manual) Lymphocytes % (Manual) Monocytes % (Manual) Seg Neutrophils # Man Lymphocytes # (Manual) Monocytes # (Manual) PT INR APTT POC ABG pH POC ABG pCO2 POC ABG pO2 Sodium Potassium Carbon Dioxide 20 L BUN 112 H Creatinine 2.7 H D Glucose 252 H POC Glucose 282 H Hemoglobin A1c Lactic Acid 2.10 H* Calcium 11.2 H D Phosphorus Magnesium Total Creatine Kinase Troponin T C-Reactive Protein NT-Pro-B Natriuret Pep Total Protein Albumin LDL Cholesterol Direct HDL Cholesterol Urine WBC (Auto) 10/13/17 10/14/17 10/14/17 19:51 00:27 05:24 WBC MCH MCHC RDW Plt Count Eos % (Auto) Seg Neuts % (Manual) Lymphocytes % (Manual) Monocytes % (Manual) Seg Neutrophils # Man Lymphocytes # (Manual) Monocytes # (Manual) PT INR APTT POC ABG pH POC ABG pCO2 POC ABG pO2 Sodium Potassium Carbon Dioxide BUN Creatinine Glucose POC Glucose 284 H 365 H 335 H Hemoglobin A1c Lactic Acid Calcium Phosphorus Magnesium Total Creatine Kinase Troponin T C-Reactive Protein NT-Pro-B Natriuret Pep Total Protein Albumin LDL Cholesterol Direct HDL Cholesterol Urine WBC (Auto) 10/14/17 10/14/17 10/14/17 05:45 05:45 05:45 WBC 24.1 H MCH 27 L MCHC RDW 17.1 H Plt Count 119 L Eos % (Auto) Seg Neuts % (Manual) 77.0 H Lymphocytes % (Manual) 2.0 L Monocytes % (Manual) Seg Neutrophils # Man 18.6 H Lymphocytes # (Manual) 0.5 L Monocytes # (Manual) 1.0 H PT 15.5 H INR 1.17 H APTT POC ABG pH POC ABG pCO2 POC ABG pO2 Sodium Potassium Carbon Dioxide BUN Creatinine Glucose POC Glucose Hemoglobin A1c Lactic Acid Calcium Phosphorus 6.30 H D Magnesium Total Creatine Kinase Troponin T C-Reactive Protein NT-Pro-B Natriuret Pep Total Protein Albumin LDL Cholesterol Direct HDL Cholesterol Urine WBC (Auto) 10/14/17 10/14/17 10/14/17 05:45 07:26 11:42 WBC MCH MCHC RDW Plt Count Eos % (Auto) Seg Neuts % (Manual) Lymphocytes % (Manual) Monocytes % (Manual) Seg Neutrophils # Man Lymphocytes # (Manual) Monocytes # (Manual) PT INR APTT POC ABG pH POC ABG pCO2 POC ABG pO2 Sodium Potassium Carbon Dioxide 19 L BUN 138 H Creatinine 3.1 H Glucose 396 H POC Glucose 318 H 378 H Hemoglobin A1c Lactic Acid Calcium 10.5 H Phosphorus Magnesium 2.80 H Total Creatine Kinase Troponin T C-Reactive Protein NT-Pro-B Natriuret Pep Total Protein Albumin LDL Cholesterol Direct HDL Cholesterol Urine WBC (Auto) Allied health notes reviewed: nursing
--- NOTE | 2017-10-14 12:13 | Event Note ---
Date: 10/14/17 Reportedly family has decided on hospice transfer however no actual orders yet. Will continue current care
[2017-10-14] MEDS: PEPCID PO SCH (13:39)
[2017-10-14] MEDS: ECOTRIN PO SCH (13:39)
[2017-10-14] MEDS: CORDARONE PO SCH ×2 (13:39→21:50)
--- NOTE | 2017-10-14 15:26 | Progress Note ---
Assessment and Plan Assessment and Plan Chronic Systolic CHF: Cardiology on board, TTE on 10/08/17 showed EF 30-35%, on ASA, statin, holding off on VANE since pt is now hospice, f/u recs Acute kidney injury possibly cardiorenal syndrome/ATN, sepsis, hypotension, no obstruction, questionable CKD: Mid Right Kidney Simple Cyst: Hyperkalemia: Hypercalemia: S/p HD treatment on 10/12/17 Family decided on hospice care upon discharge, awaiting SNF placement Discontinued Hemodialysis On levaphed drip Renally dose meds Renal plan d/w Dr Silver Continue supportive therapy Non-Anion Gap Metabolic Acidosis: On sodium bicarbonate 650 mg via NGT TID Atrial fibrillation: Cardiology on board, on amiodarone, f/u recs Supratherapeutic INR: Warfarin on hold Altered Mental Status: CT Head showed no acute CVA, intracranial bleed, or brain mass, stable small extra-axial left frontal calcified nodule most compatible with meningioma, stable postoperative change with encephalomalacia and volume loss in left frontal region Per primary team Leukocytosis: Possible Sepsis: ID consulted 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 Switched to daptomycin S/p dose of steroids 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 As per primary team Subjective Date of service: 10/14/17 Principal diagnosis: Acute Hypoxemic Resp Failure; SUNDAR; Acute Encephalopathy; Torsades Interval history: Pt seen in ICU, lethargic, doesn't follow commands, no family at bedside Objective - Vital Signs Vital signs: Vital Signs - 12hr 10/14/17 10/14/17 10/14/17 03:30 03:46 04:00 Temperature Pulse Rate 58 L 65 68 Pulse Rate [ From Monitor] Respiratory 20 20 18 Rate Blood Pressure 99/45 99/45 108/53 O2 Sat by Pulse 100 99 99 Oximetry 10/14/17 10/14/17 10/14/17 04:16 04:30 04:46 Temperature Pulse Rate 64 63 63 Pulse Rate [ From Monitor] Respiratory 23 19 18 Rate Blood Pressure 99/45 110/43 110/43 O2 Sat by Pulse 100 100 100 Oximetry 10/14/17 10/14/17 10/14/17 05:00 05:16 05:30 Temperature Pulse Rate 64 66 65 Pulse Rate [ From Monitor] Respiratory 18 22 17 Rate Blood Pressure 110/49 110/49 114/49 O2 Sat by Pulse 97 95 100 Oximetry 10/14/17 10/14/17 10/14/17 05:45 05:46 06:00 Temperature Pulse Rate 64 65 Pulse Rate [ 64 From Monitor] Respiratory 19 19 17 Rate Blood Pressure 114/49 113/51 O2 Sat by Pulse 96 96 100 Oximetry 10/14/17 10/14/17 10/14/17 06:16 06:30 06:46 Temperature Pulse Rate 61 66 Pulse Rate [ From Monitor] Respiratory 22 12 Rate Blood Pressure 113/51 113/51 140/63 O2 Sat by Pulse 100 97 98 Oximetry 10/14/17 10/14/17 10/14/17 07:00 07:16 07:56 Temperature 97.9 F Pulse Rate 61 77 Pulse Rate [ From Monitor] Respiratory 12 13 Rate Blood Pressure 135/47 135/47 O2 Sat by Pulse 99 100 Oximetry 10/14/17 12:00 Temperature 98.0 F Pulse Rate Pulse Rate [ From Monitor] Respiratory Rate Blood Pressure O2 Sat by Pulse Oximetry - General Appearance General appearance: frail (doesn't follow commands) EENT: ATNC Neck: no JVD Respiratory: Present: Other (Lung sounds decreased bilaterally, unlabored on oxygen mask) Cardiology: S1S2, other Gastrointestinal: normoactive bowel sounds (nasogastric tube intact) Integumentary: other (skin wounds noted to both lower extremities with dressings in place) Neurologic: confused (lethargic, doesn't follow commands) Musculoskeletal: other (1+ edema to both lower extremities) - Lab 10/14/17 05:45 10/14/17 05:45 Most recent lab results Calcium 10.5 mg/dL (8.4-10.2) H 10/14/17 05:45 Phosphorus 6.30 mg/dL (2.5-4.5) H D 10/14/17 05:45 Magnesium 2.80 mg/dL (1.7-2.3) H 10/14/17 05:45
[2017-10-14] MEDS: AMBIEN PO PRN (21:55)
[2017-10-15] MEDS: COREG PO SCH ×3 (01:13→21:31)
[2017-10-15] MEDS: SODIUM CHLORIDE FLUSH SYRINGE 10 ML IV SCH ×4 (01:28→21:40)
[2017-10-15 07:09] LABS: Calcium 9.2 mg/dL (8.4-10.2)
[2017-10-15] MEDS: SODIUM BICARBONATE FEEDTUBE SCH ×3 (08:00→21:31)
[2017-10-15] MEDS ORDERED: NACL 0.9% 500 ML 500 ML ONE (08:22)
--- NOTE | 2017-10-15 08:25 | Progress Note ---
Assessment and Plan Acute metabolic Encephalopathy * POSSIBLE sepsis, Uremic encephalopathy * Family decided on hospice Acute on chronic systolic CHF. lasix iv. Coreg, on hold for now because of low BP. Will resume when BP improves Diabetes mellitus Type 2. Fingerstick glucose QAC AND hs SSI Hypotension. Improving BP, Coreg and Norvasc on hold. Acute Kidney Injury. WIll not be dialysed per nephrology as family decided on hospice care Nephrology following Atrial fibrillation with controlled ventricular response, Amiodorone DVT prophylaxis. On Coumadin Full code status. Family agreeable to Hospice on Discharge. At this time arrangement is being made for SNF. patient still too sick for transfer. The high probability of a clinically significant, sudden or life threatening deterioration of the [cardiac, neurology] system(s) required my full and direct attention, intervention and personal management. The aggregate critical care time was [45] minutes. This time is in addition to time spent performing reported procedures but includes the following: Subjective Date of service: 10/15/17 Principal diagnosis: Acute Hypoxemic Resp Failure; SUNDAR; Acute Encephalopathy; Torsades Interval history: Patient seen and examined. Lying quietly in bed. No new coomplaint. Still lerthergic Objective - Constitutional Vitals: Vital Signs - 12hr 10/14/17 10/14/17 10/14/17 20:30 20:46 21:00 Temperature Pulse Rate 62 66 69 Pulse Rate [ From Monitor] Respiratory 19 18 17 Rate Blood Pressure 128/50 128/50 118/46 O2 Sat by Pulse 99 100 100 Oximetry 10/14/17 10/14/17 10/14/17 21:16 21:24 21:26 Temperature Pulse Rate 65 66 Pulse Rate [ From Monitor] Respiratory 22 17 Rate Blood Pressure 118/46 118/46 O2 Sat by Pulse 100 100 99 Oximetry 10/14/17 10/14/17 10/14/17 21:30 21:46 22:00 Temperature Pulse Rate 63 61 62 Pulse Rate [ From Monitor] Respiratory 22 22 20 Rate Blood Pressure 120/45 120/45 129/47 O2 Sat by Pulse 96 86 93 Oximetry 10/14/17 10/14/17 10/14/17 22:16 22:30 22:46 Temperature Pulse Rate 62 60 61 Pulse Rate [ From Monitor] Respiratory 17 19 18 Rate Blood Pressure 120/45 120/44 129/47 O2 Sat by Pulse 100 100 Oximetry 10/14/17 10/14/17 10/14/17 23:00 23:16 23:30 Temperature Pulse Rate 59 L 65 63 Pulse Rate [ From Monitor] Respiratory 19 20 19 Rate Blood Pressure 121/44 120/44 113/44 O2 Sat by Pulse 100 100 100 Oximetry 10/14/17 10/15/17 10/15/17 23:46 00:00 00:16 Temperature 97.7 F Pulse Rate 67 68 66 Pulse Rate [ 61 From Monitor] Respiratory 18 19 18 Rate Blood Pressure 121/44 117/44 113/44 O2 Sat by Pulse 97 100 100 Oximetry 10/15/17 10/15/17 10/15/17 00:30 00:46 01:00 Temperature Pulse Rate 62 63 63 Pulse Rate [ From Monitor] Respiratory 20 20 21 Rate Blood Pressure 120/40 117/44 116/40 O2 Sat by Pulse 100 99 100 Oximetry 10/15/17 10/15/17 10/15/17 01:16 01:20 01:30 Temperature Pulse Rate 62 78 63 Pulse Rate [ From Monitor] Respiratory 19 26 H 25 H Rate Blood Pressure 120/40 116/40 111/43 O2 Sat by Pulse 93 96 99 Oximetry 10/15/17 10/15/17 10/15/17 01:46 02:00 03:00 Temperature Pulse Rate 65 68 64 Pulse Rate [ From Monitor] Respiratory 27 H 29 H 21 Rate Blood Pressure 111/43 116/55 116/41 O2 Sat by Pulse 99 77 L 89 Oximetry 10/15/17 10/15/17 10/15/17 04:00 05:00 05:29 Temperature 97.5 F L Pulse Rate 60 62 61 Pulse Rate [ 61 From Monitor] Respiratory 21 20 21 Rate Blood Pressure 116/44 121/40 121/40 O2 Sat by Pulse 100 100 100 Oximetry 10/15/17 06:00 Temperature Pulse Rate 70 Pulse Rate [ From Monitor] Respiratory 21 Rate Blood Pressure 120/50 O2 Sat by Pulse 90 Oximetry General appearance: Present: no acute distress, well-nourished - EENT Eyes: PERRL, EOM intact Ears: bilateral: normal - Neck Neck: supple, normal ROM - Respiratory Respiratory effort: normal Respiratory: bilateral: diminished - Breasts Breasts: normal - Cardiovascular Rhythm: regular Heart Sounds: Present: S1 & S2. Absent: gallop, rub Extremities: pulses intact, No edema, normal color, Full ROM - Gastrointestinal General gastrointestinal: Present: soft, non-tender, non-distended, normal bowel sounds - Integumentary Integumentary: clear, warm, dry - Musculoskeletal Musculoskeletal: other (lethergic) - Neurologic Neurologic: other (lethergic) - Psychiatric Psychiatric: other (lethergic) - Labs CBC & Chem 7: 10/14/17 05:45 10/15/17 05:30 Labs: Abnormal lab results 10/14/17 10/14/17 10/14/17 Range/Units 07:26 11:42 16:30 Chloride (98-107) mmol/L Carbon Dioxide (22-30) mmol/L BUN (7-17) mg/dL Creatinine (0.7-1.2) mg/dL Glucose (65-100) mg/dL POC Glucose 318 H 378 H 381 H (70-105) Phosphorus (2.5-4.5) mg/dL 10/14/17 10/14/17 10/14/17 Range/Units 21:26 21:29 23:50 Chloride (98-107) mmol/L Carbon Dioxide (22-30) mmol/L BUN (7-17) mg/dL Creatinine (0.7-1.2) mg/dL Glucose (65-100) mg/dL POC Glucose 414 H 458 H 411 H (70-105) Phosphorus (2.5-4.5) mg/dL 10/15/17 Range/Units 05:30 Chloride 110.7 H (98-107) mmol/L Carbon Dioxide 16 L (22-30) mmol/L BUN 140 H (7-17) mg/dL Creatinine 2.7 H (0.7-1.2) mg/dL Glucose 404 H (65-100) mg/dL POC Glucose (70-105) Phosphorus 5.20 H (2.5-4.5) mg/dL
--- NOTE | 2017-10-15 10:32 | Progress Note ---
Assessment and Plan Assessment and Plan Chronic Systolic CHF: Cardiology on board, TTE on 10/08/17 showed EF 30-35%, on ASA, statin, holding off on VANE since pt is now hospice, f/u recs Acute kidney injury possibly cardiorenal syndrome/ATN, sepsis, hypotension, no obstruction, questionable CKD: Mid Right Kidney Simple Cyst: Hyperkalemia: Hypercalemia: Renal function reviewed, SCr level was 2.7 today, yesterday's SCr level was 3.1 S/p HD treatment on 10/12/17 Family decided on hospice care upon discharge, awaiting SNF placement Lasix 40 mg IV x 1 dose Discontinued Hemodialysis Renally dose meds Renal plan d/w Dr Silver Continue supportive therapy Non-Anion Gap Metabolic Acidosis: On sodium bicarbonate 650 mg via NGT TID Atrial fibrillation: Cardiology on board, on amiodarone, eliquis, f/u recs Supratherapeutic INR: Warfarin on hold Altered Mental Status: CT Head showed no acute CVA, intracranial bleed, or brain mass, stable small extra-axial left frontal calcified nodule most compatible with meningioma, stable postoperative change with encephalomalacia and volume loss in left frontal region As per primary team Leukocytosis: Possible Sepsis: ID consulted 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 Switched to daptomycin S/p dose of steroids 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 As per primary team Subjective Date of service: 10/15/17 Principal diagnosis: Acute Hypoxemic Resp Failure; SUNDAR; Acute Encephalopathy; Torsades Interval history: Pt seen in ICU, lethargic, on BIPAP, doesn't follow commands, no family at bedside Objective - Vital Signs Vital signs: Vital Signs - 12hr 10/14/17 10/14/17 10/14/17 22:30 22:46 23:00 Temperature Pulse Rate 60 61 59 L Pulse Rate [ From Monitor] Respiratory 19 18 19 Rate Blood Pressure 120/44 129/47 121/44 O2 Sat by Pulse 100 100 Oximetry 10/14/17 10/14/17 10/14/17 23:16 23:30 23:46 Temperature Pulse Rate 65 63 67 Pulse Rate [ From Monitor] Respiratory 20 18 Rate Blood Pressure 120/44 113/44 121/44 O2 Sat by Pulse 100 100 97 Oximetry 10/15/17 10/15/17 10/15/17 00:00 00:16 00:30 Temperature 97.7 F Pulse Rate 68 66 62 Pulse Rate [ 61 From Monitor] Respiratory 19 18 20 Rate Blood Pressure 117/44 113/44 120/40 O2 Sat by Pulse 100 100 100 Oximetry 10/15/17 10/15/17 10/15/17 00:46 01:00 01:16 Temperature Pulse Rate 63 63 62 Pulse Rate [ From Monitor] Respiratory 20 21 19 Rate Blood Pressure 117/44 116/40 120/40 O2 Sat by Pulse 99 100 93 Oximetry 10/15/17 10/15/17 10/15/17 01:20 01:30 01:46 Temperature Pulse Rate 78 63 65 Pulse Rate [ From Monitor] Respiratory 26 H 25 H 27 H Rate Blood Pressure 116/40 111/43 111/43 O2 Sat by Pulse 96 99 99 Oximetry 10/15/17 10/15/17 10/15/17 02:00 03:00 04:00 Temperature 97.5 F L Pulse Rate 68 64 60 Pulse Rate [ 61 From Monitor] Respiratory 29 H 21 21 Rate Blood Pressure 116/55 116/41 116/44 O2 Sat by Pulse 77 L 89 100 Oximetry 10/15/17 10/15/17 10/15/17 05:00 05:29 06:00 Temperature Pulse Rate 62 61 70 Pulse Rate [ From Monitor] Respiratory 20 21 21 Rate Blood Pressure 121/40 121/40 120/50 O2 Sat by Pulse 100 100 90 Oximetry - General Appearance General appearance: frail, other (on BIPAP, no family at bedside) EENT: ATNC Neck: no JVD Respiratory: Present: Other (Lung sounds decreased bilaterally, on BIPAP) Cardiology: regular, S1S2 Gastrointestinal: normoactive bowel sounds (nasogastric tube intact) Integumentary: other (bilateral lower extremity wounds with dressing in place) Neurologic: other (lethargic, doesn't follow commands) Psychiatric: other (unable to assess) - Lab 10/14/17 05:45 10/15/17 05:30 Most recent lab results Calcium 9.2 mg/dL (8.4-10.2) 10/15/17 05:30 Phosphorus 5.20 mg/dL (2.5-4.5) H 10/15/17 05:30 Magnesium 2.30 mg/dL (1.7-2.3) 10/15/17 06:00
[2017-10-15] MEDS ORDERED: LASIX IV ONE (10:34)
--- NOTE | 2017-10-15 11:07 | Progress Note ---
Subjective Date of service: 10/15/17 Principal diagnosis: Acute Hypoxemic Resp Failure; SUNDAR; Acute Encephalopathy; Torsades Interval history: Patient seen and examined, no new changes, agree with holding coreg for low BP. monitor I/O fluid management per nephrology Tele - reviewed, no events overnight GPC Bacteremia noted (4/4 bottles) in the setting of SC AICD (device implanted 05/2012) Patient also has a right femoral vascath On IV antibiotics Pt now will be hospice, will hold on VANE. Prognosis is poor (Heart failure, renal failure, respiratory failure and septic shock) Objective Vital Signs Temp Pulse Pulse Resp BP Pulse Ox 10/15/17 06:00 70 21 120/50 90 10/15/17 05:29 61 21 121/40 100 10/15/17 05:00 62 20 121/40 100 10/15/17 04:00 97.5 F L 60 61 21 116/44 100 10/15/17 03:00 64 21 116/41 89 10/15/17 02:00 68 29 H 116/55 77 L 10/15/17 01:46 65 27 H 111/43 99 10/15/17 01:30 63 25 H 111/43 99 10/15/17 01:20 78 26 H 116/40 96 10/15/17 01:16 62 19 120/40 93 10/15/17 01:00 63 21 116/40 100 10/15/17 00:46 63 20 117/44 99 10/15/17 00:30 62 20 120/40 100 10/15/17 00:16 66 18 113/44 100 10/15/17 00:00 97.7 F 68 61 19 117/44 100 10/14/17 23:46 67 18 121/44 97 18 23:30 63 19 113/44 100 10/14/17 23:16 65 20 120/44 100 10/14/17 23:00 59 L 19 121/44 100 18 22:46 61 18 129/47 100 10/14/17 22:30 60 19 120/44 10/14/17 22:16 62 17 120/45 100 18 22:00 62 20 129/47 93 10/14/17 21:46 61 22 120/45 86 10/14/17 21:30 63 22 120/45 96 05/19/18 21:26 99 05/19/18 21:24 66 17 118/46 100 05/19/18 21:16 65 22 118/46 100 05/19/18 21:00 69 17 118/46 100 05/19/18 20:46 66 18 128/50 100 05/19/18 20:30 62 19 128/50 99 05/19/18 20:16 62 19 115/49 100 05/19/18 20:00 97.4 F L 66 76 24 115/49 100 05/19/18 19:46 63 17 123/45 99 05/19/18 19:30 62 19 123/45 100 05/19/18 19:16 63 20 118/44 100 05/19/18 19:00 57 L 22 118/46 100 05/19/18 18:46 64 20 130/49 100 05/19/18 18:30 72 26 H 180/62 100 05/19/18 18:16 55 L 17 114/48 100 05/19/18 18:00 72 19 114/48 100 05/19/18 17:46 64 20 123/51 100 05/19/18 17:30 66 16 123/51 100 05/19/18 17:16 84 21 136/41 95 05/19/18 17:00 59 L 18 136/41 100 05/19/18 16:46 62 16 130/48 100 05/19/18 16:30 63 20 130/48 100 05/19/18 16:16 65 18 117/45 99 05/19/18 16:00 97.8 F 60 19 117/45 100 05/19/18 15:46 69 21 116/47 100 05/19/18 15:30 60 16 116/47 100 05/19/18 15:16 67 18 126/44 100 05/19/18 15:00 55 L 19 126/44 100 05/19/18 14:46 64 21 135/53 100 05/19/18 14:30 73 16 135/53 100 05/19/18 14:16 68 21 130/45 100 05/19/18 14:00 86 23 130/45 100 05/19/18 13:46 76 21 118/45 95 05/19/18 13:30 65 17 118/45 100 05/19/18 13:16 60 16 112/40 100 05/19/18 13:00 58 L 15 112/40 100 10/14/17 12:46 61 16 120/40 100 10/14/17 12:30 64 16 120/40 100 10/14/17 12:15 58 L 16 110/46 10/14/17 12:00 98.0 F 68 68 22 110/46 100 10/14/17 11:46 62 15 112/39 100 10/14/17 11:30 63 17 112/39 100 10/14/17 11:16 64 26 H 123/46 70 L - Physical Examination General: No Apparent Distress HEENT: Positive: PERRL Neck: Positive: neck supple Cardiac: Positive: Irregularly Regular, S1/S2 Lungs: Positive: Normal Breath Sounds Abdomen: Positive: Soft Skin: Positive: Clear Extremities: Present: +1 Edema (with chronic stasis changes) - Labs and Meds Comprehensive Metabolic Panel 10/15/17 Range/Units 05:30 Sodium 141 (137-145) mmol/L Potassium 3.8 D (3.6-5.0) mmol/L Chloride 110.7 H (98-107) mmol/L Carbon Dioxide 16 L (22-30) mmol/L BUN 140 H (7-17) mg/dL Creatinine 2.7 H (0.7-1.2) mg/dL Glucose 404 H (65-100) mg/dL Calcium 9.2 (8.4-10.2) mg/dL - Imaging and Cardiology EKG: report reviewed - Allied health notes Allied health notes reviewed: nursing
[2017-10-15] MEDS: ECOTRIN PO SCH (12:47)
[2017-10-15] MEDS: CORDARONE PO SCH (12:47)
[2017-10-15] MEDS: PEPCID PO SCH (12:47)
[2017-10-15] MEDS: HumaLOG SUB-Q SCH ×3 (12:48→18:55)
--- NOTE | 2017-10-15 12:56 | Progress Note ---
Assessment and Plan Assessment: 1) Severe sepsis with septic shock: better, off pressors, increasing leukocytosis. Etiology most likely bacteremia +/- severe alergic reaction vs. carolee legs infection. 2) High grade Beta hemolytic Strep group G bacteremia: source ? unclear ? skin. Patient has an AICD ? endocarditis. UA was neg. -10/11 Blood cultures GPC in chains 4 of 4 bottles -10/12 Blood cultures negative -TTE no vegetations 3) Acute Respiratory failure 4) SUNDAR now on HD 5) Acute encephalopathy 6) Congestive heart failure, dilated non-ischemic cardiomyopathy, severe left ventricular systolic dysfunction with ejection fraction reported at 10-15% s/p AIDC 7) Afib on coumadin 8) Hypoglycemia 9) DNR 10) Bilateral leg severe sloughing ? unclear etiology severe allergic reaction vs. necrotizing fascitis Plan: -I was informed by Dr Faulkner that pt was made hospice -unasyn and vancomycin stopped due to possible Merrill Johnsons -daptomycin started on 10/14 -once she goes to hospice will stop daptomycin Overall very poor prognosis, please consider palliative care Thank you for your consultation, will follow up with you. Aretha Steele MD Infectious Diseases Specialist [facility] M [phone] O [phone] Subjective Date of service: 10/15/17 Principal diagnosis: Acute Hypoxemic Resp Failure; SUNDAR; Acute Encephalopathy; Torsades Interval history: I was called yesterday by nursing staff reporting severe progressing skin changes on bilateral legs believed to be Merrill Ming syndrome. Microbiology: Blood cultures: 10/11 Beta hem Strep group G 4 of 4 bottles 10/12 ngtd Urine cultures: 10/11 neg Respiratory cultures: Current Antimicrobials: dapto 10/14 Prior Antimicrobials: unasyn Vancomycin Objective - Exam Narrative Exam: General appearance: lethargic on CPAP mask Eyes: anicteric sclerae, moist conjunctivae; no lid-lag; PERRLA HENT: Atraumatic; oropharynx with clots with venturi mask poor dentition, NGT Neck: Trachea midline; supple, no thyromegaly or lymphadenopathy Lungs: distant BS CV: irreg Abdomen: Soft, TTP right abdomen Extremities: mild leg edema Skin: carolee calves severe skin sloughing with some target lesions Psych: Appropriate affect, alert and oriented to person, place and time. Neuro: alert and oriented x 3. Moving all extermities Lines: right fem HD - Constitutional Vitals: Vital Signs Temp Pulse Resp BP Pulse Ox 97.5 F L 59 L 28 H 108/38 100 10/15/17 04:00 10/15/17 08:10 10/15/17 08:10 10/15/17 12:46 10/15/17 10:00 Temperature -Last 24 Hours Temperature 97.5 F Temperature 97.7 F Temperature 97.4 F Temperature 97.8 F - Labs CBC & Chem 7: 10/14/17 05:45 10/15/17 05:30 Labs: Abnormal lab results 10/14/17 10/14/17 10/14/17 Range/Units 16:30 21:26 21:29 Chloride (98-107) mmol/L Carbon Dioxide (22-30) mmol/L BUN (7-17) mg/dL Creatinine (0.7-1.2) mg/dL Glucose (65-100) mg/dL POC Glucose 381 H 414 H 458 H (70-105) Phosphorus (2.5-4.5) mg/dL C-Reactive Protein (0.00-1.30) mg/dL 10/14/17 10/15/17 10/15/17 Range/Units 23:50 05:30 05:30 Chloride 110.7 H (98-107) mmol/L Carbon Dioxide 16 L (22-30) mmol/L BUN 140 H (7-17) mg/dL Creatinine 2.7 H (0.7-1.2) mg/dL Glucose 404 H (65-100) mg/dL POC Glucose 411 H (70-105) Phosphorus 5.20 H (2.5-4.5) mg/dL C-Reactive Protein 9.80 H (0.00-1.30) mg/dL
--- NOTE | 2017-10-15 13:41 | Progress Note ---
Assessment and Plan Acute Hypoxemic Respiratory Failure Bibasilar Pneumonia vs Atelectasis Acute Encephalopathy Malignant Ventricukar Arrythmia (Torsades) Acute CHF exacerbation Diabetes type II SUNDAR (now on Dialysis) Sepsis Syndrome Atrial Fibrillation - HD/UF on hold - CT brain negative - continue BIPAP for ventilatory support during dialysis as well as for alveolar recruitment and support while asleep - weaned off levophed - continue glycemic control with SSI - skin welts improving - continue aspiration precautions especially on continuous NIV - continue antibiotics per ID recs - conservative volume management strategies re: CHF & SUNDAR - continue GI prophylaxis - continue other care per attending / other consultants .. now a DNR and family continues mulling Hospice care and transfer The high probability of a clinically significant, sudden or life threatening deterioration of the [cardiac, neurology] system(s) required my full and direct attention, intervention and personal management. The aggregate critical care time was [30] minutes without overlap. Time includes spent on; [x] Data Review and interpretation [x] Patient assessment and monitoring of vital signs [x] Documentation [x] Medication orders and management Subjective Date of service: 10/15/17 Principal diagnosis: Acute Hypoxemic Resp Failure; SUNDAR; Acute Encephalopathy; Torsades Interval history: Patient is seen today for: Acute Hypoxemic Respiratory Failure; Torsades; SUNDAR; Acute Encephalopathy; Sepsis Syndrome Seen and examined at bedside; 24hour events reviewed; nursing and respiratory care staff consulted; no adverse overnight events reported to me; resting in bed ; remains somnolent to lethargic but more responsive and appropriately so at times; remains BIPAP dependent at this point Objective Vital Signs - 12hr 10/15/17 10/15/17 10/15/17 01:46 02:00 03:00 Temperature Pulse Rate 65 68 64 Pulse Rate [ From Monitor] Respiratory 27 H 29 H 21 Rate Blood Pressure 111/43 116/55 116/41 O2 Sat by Pulse 99 77 L 89 Oximetry 10/15/17 10/15/17 10/15/17 04:00 05:00 05:29 Temperature 97.5 F L Pulse Rate 60 62 61 Pulse Rate [ 61 From Monitor] Respiratory 21 20 21 Rate Blood Pressure 116/44 121/40 121/40 O2 Sat by Pulse 100 100 100 Oximetry 10/15/17 10/15/17 10/15/17 06:00 08:10 10:00 Temperature Pulse Rate 70 59 L Pulse Rate [ From Monitor] Respiratory 21 28 H Rate Blood Pressure 120/50 135/44 O2 Sat by Pulse 90 100 100 Oximetry 10/15/17 12:46 Temperature Pulse Rate Pulse Rate [ From Monitor] Respiratory Rate Blood Pressure 108/38 O2 Sat by Pulse Oximetry Constitutional: lethargic, appears uncomfortable, other (elderly looking AAF; normocephalic) Eyes: non-icteric ENT: oropharynx moist, other (BIPAP FFM) Neck: supple, no lymphadenopathy, no JVD, other (no thyromegaly) Effort: mildly labored Ascultation: Bilateral: diminished breath sounds, rales Percussion: Bilateral: not dull Cardiovascular: irregular rhythm, murmur noted, other (no rubs) Gastrointestinal: normoactive bowel sounds, soft, non-tender, non-distended, other (No palpable HSM) Integumentary: rash, other (welts over skin of feet and legs) Extremities: no cyanosis, pulses normal, no ischemia or petechiae, edema (2+) Neurologic: unable to assess Psychiatric: other (encephalopathic) CBC and BMP: 10/14/17 05:45 10/15/17 05:30 ABG, PT/INR, D-dimer: ABG POC ABG pH 7.531 (7.35-7.45) H 10/12/17 20:38 POC ABG pCO2 27.0 (35-45) L 10/12/17 20:38 POC ABG pO2 78 (80-105) L 10/12/17 20:38 POC ABG HCO3 22.6 10/12/17 20:38 POC ABG Total CO2 23 10/12/17 20:38 POC ABG O2 Sat 97 10/12/17 20:38 PT/INR, D-dimer PT 15.5 Sec. (12.2-14.9) H 10/14/17 05:45 INR 1.17 (0.87-1.13) H 10/14/17 05:45 Abnormal lab findings: Abnormal Labs 10/07/17 10/07/17 10/07/17 12:07 13:03 13:03 WBC 3.7 L MCH MCHC RDW 16.4 H Plt Count Eos % (Auto) Seg Neuts % (Manual) Lymphocytes % (Manual) 11.0 L Monocytes % (Manual) 14.0 H Seg Neutrophils # Man 1.6 L Lymphocytes # (Manual) 0.4 L Monocytes # (Manual) PT INR APTT POC ABG pH POC ABG pCO2 POC ABG pO2 Sodium Potassium Chloride Carbon Dioxide BUN Creatinine Glucose POC Glucose 159 H Hemoglobin A1c Lactic Acid Calcium Phosphorus Magnesium Total Creatine Kinase Troponin T C-Reactive Protein NT-Pro-B Natriuret Pep 07333 H Total Protein Albumin LDL Cholesterol Direct HDL Cholesterol Urine WBC (Auto) 10/07/17 10/07/17 10/07/17 13:03 13:03 13:03 WBC MCH MCHC RDW Plt Count Eos % (Auto) Seg Neuts % (Manual) Lymphocytes % (Manual) Monocytes % (Manual) Seg Neutrophils # Man Lymphocytes # (Manual) Monocytes # (Manual) PT 37.5 H INR 3.49 H APTT 51.7 H POC ABG pH POC ABG pCO2 POC ABG pO2 Sodium Potassium Chloride Carbon Dioxide 21 L BUN 58 H Creatinine 2.6 H Glucose 134 H POC Glucose Hemoglobin A1c Lactic Acid 2.50 H* Calcium Phosphorus Magnesium Total Creatine Kinase Troponin T 0.062 H C-Reactive Protein NT-Pro-B Natriuret Pep Total Protein 5.7 L Albumin 2.1 L LDL Cholesterol Direct 23 L HDL Cholesterol 29 L Urine WBC (Auto) 10/07/17 10/07/17 10/07/17 13:03 14:23 15:54 WBC MCH MCHC RDW Plt Count Eos % (Auto) Seg Neuts % (Manual) Lymphocytes % (Manual) Monocytes % (Manual) Seg Neutrophils # Man Lymphocytes # (Manual) Monocytes # (Manual) PT INR APTT POC ABG pH 7.345 L POC ABG pCO2 34.9 L POC ABG pO2 61 L Sodium Potassium Chloride Carbon Dioxide BUN Creatinine Glucose POC Glucose Hemoglobin A1c 6.6 H Lactic Acid 2.20 H* Calcium Phosphorus Magnesium Total Creatine Kinase Troponin T C-Reactive Protein NT-Pro-B Natriuret Pep Total Protein Albumin LDL Cholesterol Direct HDL Cholesterol Urine WBC (Auto) 10/08/17 10/08/17 10/08/17 05:58 06:28 06:45 WBC MCH MCHC RDW Plt Count Eos % (Auto) Seg Neuts % (Manual) Lymphocytes % (Manual) Monocytes % (Manual) Seg Neutrophils # Man Lymphocytes # (Manual) Monocytes # (Manual) PT INR APTT POC ABG pH POC ABG pCO2 POC ABG pO2 Sodium Potassium Chloride Carbon Dioxide BUN Creatinine Glucose POC Glucose 56 L 62 L 65 L Hemoglobin A1c Lactic Acid Calcium Phosphorus Magnesium Total Creatine Kinase Troponin T C-Reactive Protein NT-Pro-B Natriuret Pep Total Protein Albumin LDL Cholesterol Direct HDL Cholesterol Urine WBC (Auto) 10/08/17 10/08/17 10/08/17 08:37 08:37 08:37 WBC 3.3 L MCH MCHC RDW 16.8 H Plt Count Eos % (Auto) Seg Neuts % (Manual) Lymphocytes % (Manual) 10.0 L Monocytes % (Manual) 9.0 H Seg Neutrophils # Man Lymphocytes # (Manual) 0.3 L Monocytes # (Manual) PT 49.9 H INR 4.97 H APTT POC ABG pH POC ABG pCO2 POC ABG pO2 Sodium 134 L Potassium 5.4 H Chloride Carbon Dioxide 21 L BUN 69 H Creatinine 2.5 H Glucose 109 H POC Glucose Hemoglobin A1c Lactic Acid Calcium Phosphorus Magnesium Total Creatine Kinase Troponin T C-Reactive Protein NT-Pro-B Natriuret Pep Total Protein 5.6 L Albumin 1.7 L LDL Cholesterol Direct HDL Cholesterol Urine WBC (Auto) 10/08/17 10/08/17 10/08/17 08:37 17:34 21:35 WBC MCH MCHC RDW Plt Count Eos % (Auto) Seg Neuts % (Manual) Lymphocytes % (Manual) Monocytes % (Manual) Seg Neutrophils # Man Lymphocytes # (Manual) Monocytes # (Manual) PT INR APTT POC ABG pH POC ABG pCO2 POC ABG pO2 Sodium Potassium Chloride Carbon Dioxide BUN Creatinine Glucose POC Glucose 114 H 110 H Hemoglobin A1c Lactic Acid Calcium Phosphorus Magnesium Total Creatine Kinase 182 H Troponin T 0.058 H C-Reactive Protein NT-Pro-B Natriuret Pep Total Protein Albumin LDL Cholesterol Direct HDL Cholesterol Urine WBC (Auto) 10/09/17 10/09/17 10/09/17 05:15 07:31 07:31 WBC MCH MCHC RDW 16.7 H Plt Count Eos % (Auto) Seg Neuts % (Manual) 71.0 H Lymphocytes % (Manual) 6.0 L Monocytes % (Manual) 8.0 H Seg Neutrophils # Man Lymphocytes # (Manual) 0.5 L Monocytes # (Manual) PT 48.0 H INR 4.73 H APTT POC ABG pH POC ABG pCO2 POC ABG pO2 Sodium Potassium Chloride Carbon Dioxide BUN Creatinine Glucose POC Glucose 125 H Hemoglobin A1c Lactic Acid Calcium Phosphorus Magnesium Total Creatine Kinase Troponin T C-Reactive Protein NT-Pro-B Natriuret Pep Total Protein Albumin LDL Cholesterol Direct HDL Cholesterol Urine WBC (Auto) 10/09/17 10/09/17 10/09/17 07:31 11:20 16:11 WBC MCH MCHC RDW Plt Count Eos % (Auto) Seg Neuts % (Manual) Lymphocytes % (Manual) Monocytes % (Manual) Seg Neutrophils # Man Lymphocytes # (Manual) Monocytes # (Manual) PT INR APTT POC ABG pH POC ABG pCO2 POC ABG pO2 Sodium Potassium Chloride Carbon Dioxide 21 L BUN 82 H Creatinine 2.7 H Glucose 109 H POC Glucose 106 H 123 H Hemoglobin A1c Lactic Acid Calcium 10.7 H Phosphorus 5.40 H Magnesium Total Creatine Kinase Troponin T C-Reactive Protein NT-Pro-B Natriuret Pep Total Protein Albumin LDL Cholesterol Direct HDL Cholesterol Urine WBC (Auto) 10/09/17 10/10/17 10/10/17 21:23 06:13 06:13 WBC 13.5 H MCH 27 L MCHC RDW 16.7 H Plt Count 115 L Eos % (Auto) Seg Neuts % (Manual) 79.0 H Lymphocytes % (Manual) 5.0 L Monocytes % (Manual) Seg Neutrophils # Man 10.7 H Lymphocytes # (Manual) 0.7 L Monocytes # (Manual) PT 47.5 H INR 4.67 H APTT POC ABG pH POC ABG pCO2 POC ABG pO2 Sodium Potassium Chloride Carbon Dioxide BUN Creatinine Glucose POC Glucose 117 H Hemoglobin A1c Lactic Acid Calcium Phosphorus Magnesium Total Creatine Kinase Troponin T C-Reactive Protein NT-Pro-B Natriuret Pep Total Protein Albumin LDL Cholesterol Direct HDL Cholesterol Urine WBC (Auto) 10/10/17 10/10/17 10/11/17 06:13 21:24 04:04 WBC MCH MCHC RDW Plt Count Eos % (Auto) Seg Neuts % (Manual) Lymphocytes % (Manual) Monocytes % (Manual) Seg Neutrophils # Man Lymphocytes # (Manual) Monocytes # (Manual) PT 52.0 H INR 5.23 H* APTT POC ABG pH POC ABG pCO2 POC ABG pO2 Sodium Potassium Chloride Carbon Dioxide 19 L BUN 95 H Creatinine 3.0 H Glucose 105 H POC Glucose 121 H Hemoglobin A1c Lactic Acid Calcium 11.8 H Phosphorus 5.60 H Magnesium Total Creatine Kinase Troponin T C-Reactive Protein NT-Pro-B Natriuret Pep Total Protein Albumin LDL Cholesterol Direct HDL Cholesterol Urine WBC (Auto) 10/11/17 10/11/17 10/11/17 04:04 04:04 10:50 WBC 18.8 H MCH MCHC RDW 16.5 H Plt Count 86 L Eos % (Auto) Seg Neuts % (Manual) 85.0 H Lymphocytes % (Manual) 7.0 L Monocytes % (Manual) Seg Neutrophils # Man 16.0 H Lymphocytes # (Manual) Monocytes # (Manual) 0.9 H PT INR APTT POC ABG pH POC ABG pCO2 POC ABG pO2 Sodium Potassium 5.1 H Chloride Carbon Dioxide 17 L BUN 120 H Creatinine 3.3 H Glucose 105 H POC Glucose Hemoglobin A1c Lactic Acid Calcium 11.7 H Phosphorus 6.00 H Magnesium Total Creatine Kinase Troponin T C-Reactive Protein NT-Pro-B Natriuret Pep Total Protein Albumin LDL Cholesterol Direct HDL Cholesterol Urine WBC (Auto) 16.0 H 10/11/17 10/11/17 10/12/17 11:31 21:43 06:00 WBC MCH MCHC RDW Plt Count Eos % (Auto) Seg Neuts % (Manual) Lymphocytes % (Manual) Monocytes % (Manual) Seg Neutrophils # Man Lymphocytes # (Manual) Monocytes # (Manual) PT INR APTT POC ABG pH POC ABG pCO2 32.2 L POC ABG pO2 37 L Sodium Potassium Chloride Carbon Dioxide BUN Creatinine Glucose POC Glucose 115 H Hemoglobin A1c Lactic Acid Calcium Phosphorus Magnesium 2.50 H Total Creatine Kinase Troponin T C-Reactive Protein NT-Pro-B Natriuret Pep Total Protein Albumin LDL Cholesterol Direct HDL Cholesterol Urine WBC (Auto) 10/12/17 10/12/17 10/12/17 06:00 06:00 06:00 WBC 18.0 H MCH 27 L MCHC RDW 16.8 H Plt Count 89 L Eos % (Auto) Seg Neuts % (Manual) 87.0 H Lymphocytes % (Manual) 5.0 L Monocytes % (Manual) 8.0 H Seg Neutrophils # Man 15.7 H Lymphocytes # (Manual) 0.9 L Monocytes # (Manual) 1.4 H PT 53.3 H INR 5.39 H* APTT POC ABG pH POC ABG pCO2 POC ABG pO2 Sodium Potassium Chloride Carbon Dioxide 19 L BUN 145 H Creatinine 3.5 H Glucose 160 H POC Glucose Hemoglobin A1c Lactic Acid Calcium 12.0 H Phosphorus 5.90 H Magnesium Total Creatine Kinase Troponin T C-Reactive Protein NT-Pro-B Natriuret Pep Total Protein Albumin LDL Cholesterol Direct HDL Cholesterol Urine WBC (Auto) 10/12/17 10/12/17 10/12/17 08:18 11:45 13:40 WBC MCH MCHC RDW Plt Count Eos % (Auto) Seg Neuts % (Manual) Lymphocytes % (Manual) Monocytes % (Manual) Seg Neutrophils # Man Lymphocytes # (Manual) Monocytes # (Manual) PT INR APTT POC ABG pH POC ABG pCO2 POC ABG pO2 Sodium Potassium Chloride Carbon Dioxide BUN Creatinine Glucose POC Glucose 150 H 148 H Hemoglobin A1c Lactic Acid 2.20 H* Calcium Phosphorus Magnesium Total Creatine Kinase Troponin T C-Reactive Protein NT-Pro-B Natriuret Pep Total Protein Albumin LDL Cholesterol Direct HDL Cholesterol Urine WBC (Auto) 10/12/17 10/12/17 10/12/17 13:40 16:34 17:23 WBC MCH MCHC RDW Plt Count Eos % (Auto) Seg Neuts % (Manual) Lymphocytes % (Manual) Monocytes % (Manual) Seg Neutrophils # Man Lymphocytes # (Manual) Monocytes # (Manual) PT INR APTT POC ABG pH POC ABG pCO2 POC ABG pO2 Sodium Potassium Chloride Carbon Dioxide BUN Creatinine Glucose POC Glucose 182 H Hemoglobin A1c Lactic Acid 2.10 H* Calcium Phosphorus Magnesium Total Creatine Kinase Troponin T C-Reactive Protein 25.60 H NT-Pro-B Natriuret Pep Total Protein Albumin LDL Cholesterol Direct HDL Cholesterol Urine WBC (Auto) 10/12/17 10/12/17 10/12/17 18:35 20:38 21:44 WBC MCH MCHC RDW Plt Count Eos % (Auto) Seg Neuts % (Manual) Lymphocytes % (Manual) Monocytes % (Manual) Seg Neutrophils # Man Lymphocytes # (Manual) Monocytes # (Manual) PT INR APTT POC ABG pH 7.531 H POC ABG pCO2 27.0 L POC ABG pO2 78 L Sodium Potassium Chloride Carbon Dioxide BUN Creatinine Glucose POC Glucose 191 H Hemoglobin A1c Lactic Acid 2.70 H* Calcium Phosphorus Magnesium Total Creatine Kinase Troponin T C-Reactive Protein NT-Pro-B Natriuret Pep Total Protein Albumin LDL Cholesterol Direct HDL Cholesterol Urine WBC (Auto) 10/12/17 10/13/17 10/13/17 22:35 04:00 04:00 WBC MCH MCHC 35 H RDW 12.6 L Plt Count Eos % (Auto) 5.8 H Seg Neuts % (Manual) Lymphocytes % (Manual) Monocytes % (Manual) Seg Neutrophils # Man Lymphocytes # (Manual) Monocytes # (Manual) PT 24.1 H INR 2.01 H APTT POC ABG pH POC ABG pCO2 POC ABG pO2 Sodium Potassium Chloride Carbon Dioxide BUN Creatinine Glucose POC Glucose Hemoglobin A1c Lactic Acid 3.00 H* Calcium Phosphorus Magnesium Total Creatine Kinase Troponin T C-Reactive Protein NT-Pro-B Natriuret Pep Total Protein Albumin LDL Cholesterol Direct HDL Cholesterol Urine WBC (Auto) 10/13/17 10/13/17 10/13/17 04:00 04:00 05:27 WBC MCH MCHC RDW Plt Count Eos % (Auto) Seg Neuts % (Manual) Lymphocytes % (Manual) Monocytes % (Manual) Seg Neutrophils # Man Lymphocytes # (Manual) Monocytes # (Manual) PT INR APTT POC ABG pH POC ABG pCO2 POC ABG pO2 Sodium Potassium Chloride Carbon Dioxide BUN Creatinine Glucose POC Glucose 251 H Hemoglobin A1c Lactic Acid Calcium 8.3 L D Phosphorus Magnesium 1.60 L Total Creatine Kinase Troponin T C-Reactive Protein NT-Pro-B Natriuret Pep Total Protein Albumin LDL Cholesterol Direct HDL Cholesterol Urine WBC (Auto) 10/13/17 10/13/17 10/13/17 10:52 13:08 13:46 WBC MCH MCHC RDW Plt Count Eos % (Auto) Seg Neuts % (Manual) Lymphocytes % (Manual) Monocytes % (Manual) Seg Neutrophils # Man Lymphocytes # (Manual) Monocytes # (Manual) PT INR APTT POC ABG pH POC ABG pCO2 POC ABG pO2 Sodium Potassium Chloride Carbon Dioxide 20 L BUN 112 H Creatinine 2.7 H D Glucose 252 H POC Glucose 282 H Hemoglobin A1c Lactic Acid 2.10 H* Calcium 11.2 H D Phosphorus Magnesium Total Creatine Kinase Troponin T C-Reactive Protein NT-Pro-B Natriuret Pep Total Protein Albumin LDL Cholesterol Direct HDL Cholesterol Urine WBC (Auto) 10/13/17 10/14/17 10/14/17 19:51 00:27 05:24 WBC MCH MCHC RDW Plt Count Eos % (Auto) Seg Neuts % (Manual) Lymphocytes % (Manual) Monocytes % (Manual) Seg Neutrophils # Man Lymphocytes # (Manual) Monocytes # (Manual) PT INR APTT POC ABG pH POC ABG pCO2 POC ABG pO2 Sodium Potassium Chloride Carbon Dioxide BUN Creatinine Glucose POC Glucose 284 H 365 H 335 H Hemoglobin A1c Lactic Acid Calcium Phosphorus Magnesium Total Creatine Kinase Troponin T C-Reactive Protein NT-Pro-B Natriuret Pep Total Protein Albumin LDL Cholesterol Direct HDL Cholesterol Urine WBC (Auto) 10/14/17 10/14/17 10/14/17 05:45 05:45 05:45 WBC 24.1 H MCH 27 L MCHC RDW 17.1 H Plt Count 119 L Eos % (Auto) Seg Neuts % (Manual) 77.0 H Lymphocytes % (Manual) 2.0 L Monocytes % (Manual) Seg Neutrophils # Man 18.6 H Lymphocytes # (Manual) 0.5 L Monocytes # (Manual) 1.0 H PT 15.5 H INR 1.17 H APTT POC ABG pH POC ABG pCO2 POC ABG pO2 Sodium Potassium Chloride Carbon Dioxide BUN Creatinine Glucose POC Glucose Hemoglobin A1c Lactic Acid Calcium Phosphorus 6.30 H D Magnesium Total Creatine Kinase Troponin T C-Reactive Protein NT-Pro-B Natriuret Pep Total Protein Albumin LDL Cholesterol Direct HDL Cholesterol Urine WBC (Auto) 10/14/17 10/14/17 10/14/17 05:45 07:26 11:42 WBC MCH MCHC RDW Plt Count Eos % (Auto) Seg Neuts % (Manual) Lymphocytes % (Manual) Monocytes % (Manual) Seg Neutrophils # Man Lymphocytes # (Manual) Monocytes # (Manual) PT INR APTT POC ABG pH POC ABG pCO2 POC ABG pO2 Sodium Potassium Chloride Carbon Dioxide 19 L BUN 138 H Creatinine 3.1 H Glucose 396 H POC Glucose 318 H 378 H Hemoglobin A1c Lactic Acid Calcium 10.5 H Phosphorus Magnesium 2.80 H Total Creatine Kinase Troponin T C-Reactive Protein NT-Pro-B Natriuret Pep Total Protein Albumin LDL Cholesterol Direct HDL Cholesterol Urine WBC (Auto) 10/14/17 10/14/17 10/14/17 16:30 21:26 21:29 WBC MCH MCHC RDW Plt Count Eos % (Auto) Seg Neuts % (Manual) Lymphocytes % (Manual) Monocytes % (Manual) Seg Neutrophils # Man Lymphocytes # (Manual) Monocytes # (Manual) PT INR APTT POC ABG pH POC ABG pCO2 POC ABG pO2 Sodium Potassium Chloride Carbon Dioxide BUN Creatinine Glucose POC Glucose 381 H 414 H 458 H Hemoglobin A1c Lactic Acid Calcium Phosphorus Magnesium Total Creatine Kinase Troponin T C-Reactive Protein NT-Pro-B Natriuret Pep Total Protein Albumin LDL Cholesterol Direct HDL Cholesterol Urine WBC (Auto) 10/14/17 10/15/17 10/15/17 23:50 05:30 05:30 WBC MCH MCHC RDW Plt Count Eos % (Auto) Seg Neuts % (Manual) Lymphocytes % (Manual) Monocytes % (Manual) Seg Neutrophils # Man Lymphocytes # (Manual) Monocytes # (Manual) PT INR APTT POC ABG pH POC ABG pCO2 POC ABG pO2 Sodium Potassium Chloride 110.7 H Carbon Dioxide 16 L BUN 140 H Creatinine 2.7 H Glucose 404 H POC Glucose 411 H Hemoglobin A1c Lactic Acid Calcium Phosphorus 5.20 H Magnesium Total Creatine Kinase Troponin T C-Reactive Protein 9.80 H NT-Pro-B Natriuret Pep Total Protein Albumin LDL Cholesterol Direct HDL Cholesterol Urine WBC (Auto) Allied health notes reviewed: nursing
[2017-10-15] MEDS ORDERED: LASIX ONE (15:11)
[2017-10-15] MEDS: ELIQUIS PO SCH ×2 (15:13→21:31)
[2017-10-15 15:21] LABS: Hematocrit 31.4 % (30.3-42.9); Hemoglobin 9.8 gm/dl (10.1-14.3); Mean Corpuscular HGB Conc 31 % (30-34); Mean Corpuscular Hemoglobin 27 pg (28-32); Mean Corpuscular Volume 86 fl (79-97); Platelet Count 153 K/mm3 (140-440); Red Blood Count 3.65 M/mm3 (3.65-5.03); Red Cell Distribution Width 17.4 % (13.2-15.2)
[2017-10-15 15:31] LABS: INR 1.5 (0.87-1.13)
[2017-10-15 15:35] LABS: Calcium 10.6 mg/dL (8.4-10.2)
[2017-10-15] MEDS ORDERED: D50W (25GM) Syringe IV PRN (15:59)
[2017-10-15 17:04] LABS: Basophils % (Manual) 0 % (0.0-1.8); Eosinophils % (Manual) 0 % (0.0-4.3); Platelet Estimate Consistent w Auto; Total Cells Counted 100
[2017-10-15 20:13] LABS: Calcium 10.7 mg/dL (8.4-10.2)
[2017-10-15] MEDS: AMBIEN PO PRN (21:31)
[2017-10-15] MEDS ORDERED: LANTUS SUB-Q SCH (22:00)
[2017-10-16] MEDS: HumaLOG SUB-Q SCH ×2 (00:16→07:03)
[2017-10-16] MEDS: LEVOPHED DRIP 4 MG/NS 250 ML 4 MG/250 ML BAG IV SCH (04:54)
[2017-10-16 05:28] LABS: Hematocrit 30.7 % (30.3-42.9); Hemoglobin 9.5 gm/dl (10.1-14.3); Mean Corpuscular HGB Conc 31 % (30-34); Mean Corpuscular Hemoglobin 27 pg (28-32); Mean Corpuscular Volume 87 fl (79-97); Platelet Count 165 K/mm3 (140-440); Red Blood Count 3.53 M/mm3 (3.65-5.03)
[2017-10-16 05:38] LABS: INR 1.94 (0.87-1.13)
[2017-10-16 05:47] LABS: Calcium 10.6 mg/dL (8.4-10.2)
[2017-10-16 06:23] LABS: Band Neutrophils # (Manual) 0.1 K/mm3; Basophils % (Manual) 0 % (0.0-1.8); Eosinophils % (Manual) 0 % (0.0-4.3); Monocytes % (Manual) 1.5 % (0.0-7.3); Total Cells Counted 200
[2017-10-16 06:24] LABS: Platelet Estimate Consistent w Auto
--- NOTE | 2017-10-16 08:49 | Progress Note ---
Assessment and Plan Acute metabolic Encephalopathy * Sepsis, Uremic encephalopathy * Family decided on hospice * Sepsis with septic shock High grade Beta hemolytic strep in pt with AICD, Acute on chronic systolic CHF. lasix iv. Coreg, on hold for now because of low BP. Will resume when BP improves Diabetes mellitus Type 2. commence insuklin drip ar 2units/hr SSI Hypotension. Improving BP, Coreg and Norvasc on hold. Acute Kidney Injury. WIll not be dialysed per nephrology as family decided on hospice care Nephrology following Atrial fibrillation with controlled ventricular response, Amiodorone DVT prophylaxis. On Coumadin Full code status. Family agreeable to Hospice on Discharge. At this time arrangement is being made for SNF. patient still too sick for transfer. The high probability of a clinically significant, sudden or life threatening deterioration of the [cardiac, neurology] system(s) required my full and direct attention, intervention and personal management. The aggregate critical care time was [45] minutes. This time is in addition to time spent performing reported procedures but includes the following: Subjective Date of service: 10/16/17 Principal diagnosis: Acute Hypoxemic Resp Failure; SUNDAR; Acute Encephalopathy; Torsades Interval history: Patient seen and examined. Lying quietly in bed. No new complaint. Still lethargic.On BIPAP Objective - Constitutional Vitals: Vital Signs - 12hr 10/15/17 10/15/17 10/15/17 21:00 22:00 23:00 Temperature Pulse Rate 65 66 57 L Pulse Rate [ From Monitor] Respiratory 18 25 H 19 Rate Blood Pressure 101/45 105/18 98/37 O2 Sat by Pulse 96 98 81 L Oximetry 10/15/17 10/16/17 10/16/17 23:37 00:00 00:01 Temperature 97.8 F Pulse Rate 58 L 60 Pulse Rate [ 59 L From Monitor] Respiratory 14 20 18 Rate Blood Pressure 87/29 85/30 O2 Sat by Pulse 100 75 L Oximetry 10/16/17 10/16/17 10/16/17 00:08 01:00 02:00 Temperature Pulse Rate 70 64 62 Pulse Rate [ From Monitor] Respiratory 18 22 33 H Rate Blood Pressure 85/30 81/32 81/36 O2 Sat by Pulse 93 94 94 Oximetry 10/16/17 10/16/17 10/16/17 03:00 04:00 05:01 Temperature 97.0 F L Pulse Rate 60 63 58 L Pulse Rate [ 60 From Monitor] Respiratory 30 H 19 15 Rate Blood Pressure 95/32 83/38 80/31 O2 Sat by Pulse 93 96 98 Oximetry 10/16/17 10/16/17 10/16/17 06:01 07:00 08:01 Temperature Pulse Rate 62 68 64 Pulse Rate [ From Monitor] Respiratory 28 H 25 H 38 H Rate Blood Pressure 96/34 84/38 92/42 O2 Sat by Pulse 96 94 78 L Oximetry General appearance: Present: no acute distress, well-nourished, other (on BIPAP) - EENT Eyes: PERRL, EOM intact Ears: bilateral: normal - Neck Neck: supple, normal ROM - Respiratory Respiratory effort: normal Respiratory: bilateral: diminished - Cardiovascular Rhythm: regular Heart Sounds: Present: S1 & S2. Absent: gallop, rub Extremities: pulses intact, No edema, normal color, Full ROM - Gastrointestinal General gastrointestinal: Present: soft, non-tender, non-distended, normal bowel sounds - Integumentary Integumentary: clear, warm, dry - Musculoskeletal Musculoskeletal: generalized weakness - Neurologic Neurologic: moves all extremities - Psychiatric Psychiatric: other (letheregic) - Labs CBC & Chem 7: 10/16/17 05:00 10/16/17 05:00 Labs: Abnormal lab results 10/15/17 10/15/17 10/15/17 Range/Units 05:30 12:56 14:43 WBC (4.5-11.0) K/mm3 RBC (3.65-5.03) M/mm3 Hgb (10.1-14.3) gm/dl MCH (28-32) pg RDW (13.2-15.2) % Seg Neuts % (Manual) (40.0-70.0) % Lymphocytes % (Manual) (13.4-35.0) % Seg Neutrophils # Man (1.8-7.7) K/mm3 Lymphocytes # (Manual) (1.2-5.4) K/mm3 PT 19.0 H (12.2-14.9) Sec. INR 1.50 H (0.87-1.13) Chloride (98-107) mmol/L Carbon Dioxide (22-30) mmol/L BUN (7-17) mg/dL Creatinine (0.7-1.2) mg/dL Glucose (65-100) mg/dL POC Glucose > 500 H (70-105) Calcium (8.4-10.2) mg/dL Phosphorus (2.5-4.5) mg/dL C-Reactive Protein 9.80 H (0.00-1.30) mg/dL 10/15/17 10/15/17 10/15/17 Range/Units 14:43 14:43 18:55 WBC 27.9 H (4.5-11.0) K/mm3 RBC (3.65-5.03) M/mm3 Hgb 9.8 L (10.1-14.3) gm/dl MCH 27 L (28-32) pg RDW 17.4 H (13.2-15.2) % Seg Neuts % (Manual) 98.0 H (40.0-70.0) % Lymphocytes % (Manual) 1.0 L (13.4-35.0) % Seg Neutrophils # Man 27.3 H (1.8-7.7) K/mm3 Lymphocytes # (Manual) 0.3 L (1.2-5.4) K/mm3 PT (12.2-14.9) Sec. INR (0.87-1.13) Chloride (98-107) mmol/L Carbon Dioxide 18 L (22-30) mmol/L BUN 172 H (7-17) mg/dL Creatinine 3.2 H (0.7-1.2) mg/dL Glucose 596 H* (65-100) mg/dL POC Glucose 462 H (70-105) Calcium 10.6 H D (8.4-10.2) mg/dL Phosphorus (2.5-4.5) mg/dL C-Reactive Protein (0.00-1.30) mg/dL 10/15/17 10/15/17 10/16/17 Range/Units 19:40 23:52 05:00 WBC 24.5 H (4.5-11.0) K/mm3 RBC 3.53 L (3.65-5.03) M/mm3 Hgb 9.5 L (10.1-14.3) gm/dl MCH 27 L (28-32) pg RDW 17.0 H (13.2-15.2) % Seg Neuts % (Manual) 94.5 H (40.0-70.0) % Lymphocytes % (Manual) 3.5 L (13.4-35.0) % Seg Neutrophils # Man 23.2 H (1.8-7.7) K/mm3 Lymphocytes # (Manual) 0.9 L (1.2-5.4) K/mm3 PT (12.2-14.9) Sec. INR (0.87-1.13) Chloride (98-107) mmol/L Carbon Dioxide 17 L (22-30) mmol/L BUN 178 H (7-17) mg/dL Creatinine 3.2 H (0.7-1.2) mg/dL Glucose 599 H* (65-100) mg/dL POC Glucose 480 H (70-105) Calcium 10.7 H (8.4-10.2) mg/dL Phosphorus (2.5-4.5) mg/dL C-Reactive Protein (0.00-1.30) mg/dL 10/16/17 10/16/17 10/16/17 Range/Units 05:00 05:00 06:45 WBC (4.5-11.0) K/mm3 RBC (3.65-5.03) M/mm3 Hgb (10.1-14.3) gm/dl MCH (28-32) pg RDW (13.2-15.2) % Seg Neuts % (Manual) (40.0-70.0) % Lymphocytes % (Manual) (13.4-35.0) % Seg Neutrophils # Man (1.8-7.7) K/mm3 Lymphocytes # (Manual) (1.2-5.4) K/mm3 PT 23.4 H (12.2-14.9) Sec. INR 1.94 H (0.87-1.13) Chloride 109.2 H (98-107) mmol/L Carbon Dioxide 19 L (22-30) mmol/L BUN 183 H (7-17) mg/dL Creatinine 3.3 H (0.7-1.2) mg/dL Glucose 454 H (65-100) mg/dL POC Glucose 404 H (70-105) Calcium 10.6 H (8.4-10.2) mg/dL Phosphorus 5.60 H (2.5-4.5) mg/dL C-Reactive Protein (0.00-1.30) mg/dL
--- NOTE | 2017-10-16 09:34 | Progress Note ---
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 Presence of SC indwelling cardiac defibrillator (device implanted 05/2012) Polymorphic ventricular tachycardia normal TSH Device interrogation - 37 episodes of VT/VF with 2 shocks delivered since August 29 2017. Chronic atrial fibrillation, rate control on warfarin for chronic anticoagulation due currently on hold d/t supratherapeutic INR. The patient has multiple severe comorbidities, with poor prognosis. Supportive cardiac management. Subjective Date of service: 10/16/17 Principal diagnosis: Acute Hypoxemic Resp Failure; SUNDAR; Acute Encephalopathy; Torsades Interval history: No cardiac events overnight. Awaits hospice placement. Objective Vital Signs Temp Pulse Pulse Resp BP Pulse Ox 10/16/17 08:01 64 38 H 92/42 78 L 10/16/17 07:00 68 25 H 84/38 94 10/16/17 06:01 62 28 H 96/34 96 10/16/17 05:01 58 L 15 80/31 98 10/16/17 04:00 97.0 F L 63 60 19 83/38 96 10/16/17 03:00 60 30 H 95/32 93 10/16/17 02:00 62 33 H 81/36 94 10/16/17 01:00 64 22 81/32 94 10/16/17 00:08 70 18 85/30 93 10/16/17 00:01 60 18 85/30 75 L 10/16/17 00:00 97.8 F 59 L 20 10/15/17 23:37 58 L 14 87/29 100 10/15/17 23:00 57 L 19 98/37 81 L 10/15/17 22:00 66 25 H 105/18 98 10/15/17 21:00 65 18 101/45 96 10/15/17 20:00 97.6 F 60 61 24 107/53 96 10/15/17 19:00 62 23 105/33 91 10/15/17 18:00 65 21 131/51 83 L 10/15/17 17:00 72 38 H 102/39 100 10/15/17 16:00 97.2 F L 71 65 25 H 115/46 77 L 10/15/17 15:00 68 29 H 106/55 92 10/15/17 14:00 62 28 H 120/52 84 10/15/17 13:00 67 25 H 113/40 85 10/15/17 12:46 108/38 10/15/17 12:00 98.2 F 67 65 20 118/36 94 10/15/17 11:00 67 23 108/43 98 10/15/17 10:00 64 21 140/41 100 - Physical Examination General: No Apparent Distress Cardiac: Positive: irregularly irregular - Labs and Meds Coagulation 10/15/17 10/16/17 Range/Units 14:43 05:00 PT 19.0 H 23.4 H (12.2-14.9) Sec. INR 1.50 H 1.94 H (0.87-1.13) CBC 10/15/17 10/16/17 Range/Units 14:43 05:00 WBC 27.9 H 24.5 H (4.5-11.0) K/mm3 RBC 3.65 3.53 L (3.65-5.03) M/mm3 Hgb 9.8 L 9.5 L (10.1-14.3) gm/dl Hct 31.4 30.7 (30.3-42.9) % Plt Count 153 165 (140-440) K/mm3 Comprehensive Metabolic Panel 10/15/17 10/15/17 10/16/17 Range/Units 14:43 19:40 05:00 Sodium 139 142 145 (137-145) mmol/L Potassium 4.9 D 4.9 4.8 (3.6-5.0) mmol/L Chloride 106.0 106.8 109.2 H (98-107) mmol/L Carbon Dioxide 18 L 17 L 19 L (22-30) mmol/L BUN 172 H 178 H 183 H (7-17) mg/dL Creatinine 3.2 H 3.2 H 3.3 H (0.7-1.2) mg/dL Glucose 596 H* 599 H* 454 H (65-100) mg/dL Calcium 10.6 H D 10.7 H 10.6 H (8.4-10.2) mg/dL - Allied health notes Allied health notes reviewed: nursing
--- NOTE | 2017-10-16 10:47 | Progress Note ---
Assessment and Plan Assessment and Plan Chronic Systolic CHF: Cardiology on board, TTE on 10/08/17 showed EF 30-35%, on ASA, statin, holding off on VANE since pt is now hospice, f/u recs Acute kidney injury possibly cardiorenal syndrome/ATN, sepsis, hypotension, no obstruction, questionable CKD: Mid Right Kidney Simple Cyst: Hyperkalemia: Hypercalemia: Renal function reviewed, SCr level was 3.3 today, yesterday's SCr level was 3.2 S/p HD treatment on 10/12/17 Family decided on hospice care upon discharge, CM on board, awaiting SNF placement Discontinued Hemodialysis On Levaphed drip for blood pressure support Start Lasix 40 mg IV daily Renally dose meds [place] Catheter: Yes Intake= 1938 ml Output= 1750 ml ( Net= 188 ml) Renal plan d/w Dr Silver Continue supportive therapy Non-Anion Gap Metabolic Acidosis: On sodium bicarbonate 650 mg via NGT TID Atrial fibrillation: Cardiology on board, on amiodarone, eliquis, f/u recs Supratherapeutic INR: Warfarin on hold Altered Mental Status: CT Head showed no acute CVA, intracranial bleed, or brain mass, stable small extra-axial left frontal calcified nodule most compatible with meningioma, stable postoperative change with encephalomalacia and volume loss in left frontal region As per primary team Leukocytosis: Possible Sepsis: ID consulted 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 Switched to daptomycin S/p dose of steroids 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 As per primary team Subjective Date of service: 10/16/17 Principal diagnosis: Acute Hypoxemic Resp Failure; SUNDAR; Acute Encephalopathy; Torsades Interval history: Pt seen in ICU, lethargic, on vent-mask, doesn't follow commands, no family at bedside Objective - Vital Signs Vital signs: Vital Signs - 12hr 10/15/17 10/15/17 10/16/17 23:00 23:37 00:00 Temperature 97.8 F Pulse Rate 57 L 58 L Pulse Rate [ 59 L From Monitor] Respiratory 19 14 20 Rate Blood Pressure 98/37 87/29 O2 Sat by Pulse 81 L 100 Oximetry 10/16/17 10/16/17 10/16/17 00:01 00:08 01:00 Temperature Pulse Rate 60 70 64 Pulse Rate [ From Monitor] Respiratory 18 18 22 Rate Blood Pressure 85/30 85/30 81/32 O2 Sat by Pulse 75 L 93 94 Oximetry 10/16/17 10/16/17 10/16/17 02:00 03:00 04:00 Temperature 97.0 F L Pulse Rate 62 60 63 Pulse Rate [ 60 From Monitor] Respiratory 33 H 30 H 19 Rate Blood Pressure 81/36 95/32 83/38 O2 Sat by Pulse 94 93 96 Oximetry 10/16/17 10/16/17 10/16/17 05:01 06:01 07:00 Temperature Pulse Rate 58 L 62 68 Pulse Rate [ From Monitor] Respiratory 15 28 H 25 H Rate Blood Pressure 80/31 96/34 84/38 O2 Sat by Pulse 98 96 94 Oximetry 10/16/17 08:01 Temperature Pulse Rate 64 Pulse Rate [ From Monitor] Respiratory 38 H Rate Blood Pressure 92/42 O2 Sat by Pulse 78 L Oximetry - General Appearance General appearance: frail (lethargic, doesn't follow commands) EENT: ATNC Neck: no JVD Respiratory: Present: Other (Lung sounds decreased bilaterally, unlabored on venti-mask) Cardiology: irregularly irregular, S1S2 Gastrointestinal: normoactive bowel sounds (nasogastric tube intact) Integumentary: other (bilateral lower extremity wounds with dressing in place) Neurologic: other (lethargic, doesn't follow commands) Musculoskeletal: other (1+ edema to both lower extremities) Psychiatric: other (unable to assess) - Lab 10/16/17 05:00 10/16/17 05:00 Most recent lab results Calcium 10.6 mg/dL (8.4-10.2) H 10/16/17 05:00 Phosphorus 5.60 mg/dL (2.5-4.5) H 10/16/17 05:00 Magnesium 2.30 mg/dL (1.7-2.3) 10/15/17 06:00
[2017-10-16] MEDS ORDERED: LASIX IV SCH (12:00)
--- NOTE | 2017-10-16 12:26 | Progress Note ---
Assessment and Plan Acute Hypoxemic Respiratory Failure Bibasilar Pneumonia vs Atelectasis Acute Encephalopathy Malignant Ventricukar Arrythmia (Torsades) Acute CHF exacerbation Diabetes type II SUNDAR (now on Dialysis) Sepsis Syndrome Atrial Fibrillation - continue levophed to keep MAP > 65mmHg - HD/UF on hold - CT brain negative - continue BIPAP for ventilatory support during dialysis as well as for alveolar recruitment and support while asleep - weaned off levophed - continue glycemic control with SSI - skin welts improving - continue aspiration precautions especially on continuous NIV - continue antibiotics per ID recs - conservative volume management strategies re: CHF & SUNDAR - continue GI prophylaxis - continue other care per attending / other consultants .. now a DNR and family continues mulling Hospice care and transfer The high probability of a clinically significant, sudden or life threatening deterioration of the [cardiac, neurology] system(s) required my full and direct attention, intervention and personal management. The aggregate critical care time was [30] minutes without overlap. Time includes spent on; [x] Data Review and interpretation [x] Patient assessment and monitoring of vital signs [x] Documentation [x] Medication orders and management Subjective Date of service: 10/16/17 Principal diagnosis: Acute Hypoxemic Resp Failure; SUNDAR; Acute Encephalopathy; Torsades Interval history: Patient is seen today for: Acute Hypoxemic Respiratory Failure; Torsades; SUNDAR; Acute Encephalopathy; Sepsis Syndrome Seen and examined at bedside; 24hour events reviewed; nursing and respiratory care staff consulted; no adverse overnight events reported to me; resting in bed ; started on levophed drip overnight and now on 5mics/min; No emesis or overt aspiration; lethargy is persistent and not following prompts appropriately; remains on venti-mask; still awaiting hospice transfer decision Objective Vital Signs - 12hr 10/16/17 10/16/17 10/16/17 01:00 02:00 03:00 Temperature Pulse Rate 64 62 60 Pulse Rate [ From Monitor] Respiratory 22 33 H 30 H Rate Blood Pressure 81/32 81/36 95/32 O2 Sat by Pulse 94 94 93 Oximetry 10/16/17 10/16/17 10/16/17 04:00 05:01 06:01 Temperature 97.0 F L Pulse Rate 63 58 L 62 Pulse Rate [ 60 From Monitor] Respiratory 19 15 28 H Rate Blood Pressure 83/38 80/31 96/34 O2 Sat by Pulse 96 98 96 Oximetry 10/16/17 10/16/17 07:00 08:01 Temperature Pulse Rate 68 64 Pulse Rate [ From Monitor] Respiratory 25 H 38 H Rate Blood Pressure 84/38 92/42 O2 Sat by Pulse 94 78 L Oximetry Constitutional: lethargic, appears uncomfortable, other (elderly looking AAK, normocephalic, atraumatic) Eyes: non-icteric ENT: oropharynx moist, other (BIPAP FFM) Neck: supple, no lymphadenopathy, no JVD, other (no thyromegaly) Effort: mildly labored Ascultation: Bilateral: diminished breath sounds, rales Percussion: Bilateral: not dull Cardiovascular: irregular rhythm, murmur noted, other (no rubs) Gastrointestinal: normoactive bowel sounds, soft, non-tender, non-distended, other (No palpable HSM) Integumentary: rash, other (welts over skin of feet and legs) Extremities: no cyanosis, pulses normal, no ischemia or petechiae, edema (2+) Neurologic: unable to assess Psychiatric: other (encephalopathic) CBC and BMP: 10/16/17 05:00 10/16/17 05:00 ABG, PT/INR, D-dimer: ABG POC ABG pH 7.531 (7.35-7.45) H 10/12/17 20:38 POC ABG pCO2 27.0 (35-45) L 10/12/17 20:38 POC ABG pO2 78 (80-105) L 10/12/17 20:38 POC ABG HCO3 22.6 10/12/17 20:38 POC ABG Total CO2 23 10/12/17 20:38 POC ABG O2 Sat 97 10/12/17 20:38 PT/INR, D-dimer PT 23.4 Sec. (12.2-14.9) H 10/16/17 05:00 INR 1.94 (0.87-1.13) H 10/16/17 05:00 Abnormal lab findings: Abnormal Labs 10/07/17 10/07/17 10/07/17 12:07 13:03 13:03 WBC 3.7 L RBC Hgb MCH MCHC RDW 16.4 H Plt Count Eos % (Auto) Seg Neuts % (Manual) Lymphocytes % (Manual) 11.0 L Monocytes % (Manual) 14.0 H Seg Neutrophils # Man 1.6 L Lymphocytes # (Manual) 0.4 L Monocytes # (Manual) PT INR APTT POC ABG pH POC ABG pCO2 POC ABG pO2 Sodium Potassium Chloride Carbon Dioxide BUN Creatinine Glucose POC Glucose 159 H Hemoglobin A1c Lactic Acid Calcium Phosphorus Magnesium Total Creatine Kinase Troponin T C-Reactive Protein NT-Pro-B Natriuret Pep 03288 H Total Protein Albumin LDL Cholesterol Direct HDL Cholesterol Urine WBC (Auto) 10/07/17 10/07/17 10/07/17 13:03 13:03 13:03 WBC RBC Hgb MCH MCHC RDW Plt Count Eos % (Auto) Seg Neuts % (Manual) Lymphocytes % (Manual) Monocytes % (Manual) Seg Neutrophils # Man Lymphocytes # (Manual) Monocytes # (Manual) PT 37.5 H INR 3.49 H APTT 51.7 H POC ABG pH POC ABG pCO2 POC ABG pO2 Sodium Potassium Chloride Carbon Dioxide 21 L BUN 58 H Creatinine 2.6 H Glucose 134 H POC Glucose Hemoglobin A1c Lactic Acid 2.50 H* Calcium Phosphorus Magnesium Total Creatine Kinase Troponin T 0.062 H C-Reactive Protein NT-Pro-B Natriuret Pep Total Protein 5.7 L Albumin 2.1 L LDL Cholesterol Direct 23 L HDL Cholesterol 29 L Urine WBC (Auto) 10/07/17 10/07/17 10/07/17 13:03 14:23 15:54 WBC RBC Hgb MCH MCHC RDW Plt Count Eos % (Auto) Seg Neuts % (Manual) Lymphocytes % (Manual) Monocytes % (Manual) Seg Neutrophils # Man Lymphocytes # (Manual) Monocytes # (Manual) PT INR APTT POC ABG pH 7.345 L POC ABG pCO2 34.9 L POC ABG pO2 61 L Sodium Potassium Chloride Carbon Dioxide BUN Creatinine Glucose POC Glucose Hemoglobin A1c 6.6 H Lactic Acid 2.20 H* Calcium Phosphorus Magnesium Total Creatine Kinase Troponin T C-Reactive Protein NT-Pro-B Natriuret Pep Total Protein Albumin LDL Cholesterol Direct HDL Cholesterol Urine WBC (Auto) 10/08/17 10/08/17 10/08/17 05:58 06:28 06:45 WBC RBC Hgb MCH MCHC RDW Plt Count Eos % (Auto) Seg Neuts % (Manual) Lymphocytes % (Manual) Monocytes % (Manual) Seg Neutrophils # Man Lymphocytes # (Manual) Monocytes # (Manual) PT INR APTT POC ABG pH POC ABG pCO2 POC ABG pO2 Sodium Potassium Chloride Carbon Dioxide BUN Creatinine Glucose POC Glucose 56 L 62 L 65 L Hemoglobin A1c Lactic Acid Calcium Phosphorus Magnesium Total Creatine Kinase Troponin T C-Reactive Protein NT-Pro-B Natriuret Pep Total Protein Albumin LDL Cholesterol Direct HDL Cholesterol Urine WBC (Auto) 10/08/17 10/08/17 10/08/17 08:37 08:37 08:37 WBC 3.3 L RBC Hgb MCH MCHC RDW 16.8 H Plt Count Eos % (Auto) Seg Neuts % (Manual) Lymphocytes % (Manual) 10.0 L Monocytes % (Manual) 9.0 H Seg Neutrophils # Man Lymphocytes # (Manual) 0.3 L Monocytes # (Manual) PT 49.9 H INR 4.97 H APTT POC ABG pH POC ABG pCO2 POC ABG pO2 Sodium 134 L Potassium 5.4 H Chloride Carbon Dioxide 21 L BUN 69 H Creatinine 2.5 H Glucose 109 H POC Glucose Hemoglobin A1c Lactic Acid Calcium Phosphorus Magnesium Total Creatine Kinase Troponin T C-Reactive Protein NT-Pro-B Natriuret Pep Total Protein 5.6 L Albumin 1.7 L LDL Cholesterol Direct HDL Cholesterol Urine WBC (Auto) 10/08/17 10/08/17 10/08/17 08:37 17:34 21:35 WBC RBC Hgb MCH MCHC RDW Plt Count Eos % (Auto) Seg Neuts % (Manual) Lymphocytes % (Manual) Monocytes % (Manual) Seg Neutrophils # Man Lymphocytes # (Manual) Monocytes # (Manual) PT INR APTT POC ABG pH POC ABG pCO2 POC ABG pO2 Sodium Potassium Chloride Carbon Dioxide BUN Creatinine Glucose POC Glucose 114 H 110 H Hemoglobin A1c Lactic Acid Calcium Phosphorus Magnesium Total Creatine Kinase 182 H Troponin T 0.058 H C-Reactive Protein NT-Pro-B Natriuret Pep Total Protein Albumin LDL Cholesterol Direct HDL Cholesterol Urine WBC (Auto) 10/09/17 10/09/17 10/09/17 05:15 07:31 07:31 WBC RBC Hgb MCH MCHC RDW 16.7 H Plt Count Eos % (Auto) Seg Neuts % (Manual) 71.0 H Lymphocytes % (Manual) 6.0 L Monocytes % (Manual) 8.0 H Seg Neutrophils # Man Lymphocytes # (Manual) 0.5 L Monocytes # (Manual) PT 48.0 H INR 4.73 H APTT POC ABG pH POC ABG pCO2 POC ABG pO2 Sodium Potassium Chloride Carbon Dioxide BUN Creatinine Glucose POC Glucose 125 H Hemoglobin A1c Lactic Acid Calcium Phosphorus Magnesium Total Creatine Kinase Troponin T C-Reactive Protein NT-Pro-B Natriuret Pep Total Protein Albumin LDL Cholesterol Direct HDL Cholesterol Urine WBC (Auto) 10/09/17 10/09/17 10/09/17 07:31 11:20 16:11 WBC RBC Hgb MCH MCHC RDW Plt Count Eos % (Auto) Seg Neuts % (Manual) Lymphocytes % (Manual) Monocytes % (Manual) Seg Neutrophils # Man Lymphocytes # (Manual) Monocytes # (Manual) PT INR APTT POC ABG pH POC ABG pCO2 POC ABG pO2 Sodium Potassium Chloride Carbon Dioxide 21 L BUN 82 H Creatinine 2.7 H Glucose 109 H POC Glucose 106 H 123 H Hemoglobin A1c Lactic Acid Calcium 10.7 H Phosphorus 5.40 H Magnesium Total Creatine Kinase Troponin T C-Reactive Protein NT-Pro-B Natriuret Pep Total Protein Albumin LDL Cholesterol Direct HDL Cholesterol Urine WBC (Auto) 10/09/17 10/10/17 10/10/17 21:23 06:13 06:13 WBC 13.5 H RBC Hgb MCH 27 L MCHC RDW 16.7 H Plt Count 115 L Eos % (Auto) Seg Neuts % (Manual) 79.0 H Lymphocytes % (Manual) 5.0 L Monocytes % (Manual) Seg Neutrophils # Man 10.7 H Lymphocytes # (Manual) 0.7 L Monocytes # (Manual) PT 47.5 H INR 4.67 H APTT POC ABG pH POC ABG pCO2 POC ABG pO2 Sodium Potassium Chloride Carbon Dioxide BUN Creatinine Glucose POC Glucose 117 H Hemoglobin A1c Lactic Acid Calcium Phosphorus Magnesium Total Creatine Kinase Troponin T C-Reactive Protein NT-Pro-B Natriuret Pep Total Protein Albumin LDL Cholesterol Direct HDL Cholesterol Urine WBC (Auto) 10/10/17 10/10/17 10/11/17 06:13 21:24 04:04 WBC RBC Hgb MCH MCHC RDW Plt Count Eos % (Auto) Seg Neuts % (Manual) Lymphocytes % (Manual) Monocytes % (Manual) Seg Neutrophils # Man Lymphocytes # (Manual) Monocytes # (Manual) PT 52.0 H INR 5.23 H* APTT POC ABG pH POC ABG pCO2 POC ABG pO2 Sodium Potassium Chloride Carbon Dioxide 19 L BUN 95 H Creatinine 3.0 H Glucose 105 H POC Glucose 121 H Hemoglobin A1c Lactic Acid Calcium 11.8 H Phosphorus 5.60 H Magnesium Total Creatine Kinase Troponin T C-Reactive Protein NT-Pro-B Natriuret Pep Total Protein Albumin LDL Cholesterol Direct HDL Cholesterol Urine WBC (Auto) 10/11/17 10/11/17 10/11/17 04:04 04:04 10:50 WBC 18.8 H RBC Hgb MCH MCHC RDW 16.5 H Plt Count 86 L Eos % (Auto) Seg Neuts % (Manual) 85.0 H Lymphocytes % (Manual) 7.0 L Monocytes % (Manual) Seg Neutrophils # Man 16.0 H Lymphocytes # (Manual) Monocytes # (Manual) 0.9 H PT INR APTT POC ABG pH POC ABG pCO2 POC ABG pO2 Sodium Potassium 5.1 H Chloride Carbon Dioxide 17 L BUN 120 H Creatinine 3.3 H Glucose 105 H POC Glucose Hemoglobin A1c Lactic Acid Calcium 11.7 H Phosphorus 6.00 H Magnesium Total Creatine Kinase Troponin T C-Reactive Protein NT-Pro-B Natriuret Pep Total Protein Albumin LDL Cholesterol Direct HDL Cholesterol Urine WBC (Auto) 16.0 H 10/11/17 10/11/17 10/12/17 11:31 21:43 06:00 WBC RBC Hgb MCH MCHC RDW Plt Count Eos % (Auto) Seg Neuts % (Manual) Lymphocytes % (Manual) Monocytes % (Manual) Seg Neutrophils # Man Lymphocytes # (Manual) Monocytes # (Manual) PT INR APTT POC ABG pH POC ABG pCO2 32.2 L POC ABG pO2 37 L Sodium Potassium Chloride Carbon Dioxide BUN Creatinine Glucose POC Glucose 115 H Hemoglobin A1c Lactic Acid Calcium Phosphorus Magnesium 2.50 H Total Creatine Kinase Troponin T C-Reactive Protein NT-Pro-B Natriuret Pep Total Protein Albumin LDL Cholesterol Direct HDL Cholesterol Urine WBC (Auto) 10/12/17 10/12/17 10/12/17 06:00 06:00 06:00 WBC 18.0 H RBC Hgb MCH 27 L MCHC RDW 16.8 H Plt Count 89 L Eos % (Auto) Seg Neuts % (Manual) 87.0 H Lymphocytes % (Manual) 5.0 L Monocytes % (Manual) 8.0 H Seg Neutrophils # Man 15.7 H Lymphocytes # (Manual) 0.9 L Monocytes # (Manual) 1.4 H PT 53.3 H INR 5.39 H* APTT POC ABG pH POC ABG pCO2 POC ABG pO2 Sodium Potassium Chloride Carbon Dioxide 19 L BUN 145 H Creatinine 3.5 H Glucose 160 H POC Glucose Hemoglobin A1c Lactic Acid Calcium 12.0 H Phosphorus 5.90 H Magnesium Total Creatine Kinase Troponin T C-Reactive Protein NT-Pro-B Natriuret Pep Total Protein Albumin LDL Cholesterol Direct HDL Cholesterol Urine WBC (Auto) 10/12/17 10/12/17 10/12/17 08:18 11:45 13:40 WBC RBC Hgb MCH MCHC RDW Plt Count Eos % (Auto) Seg Neuts % (Manual) Lymphocytes % (Manual) Monocytes % (Manual) Seg Neutrophils # Man Lymphocytes # (Manual) Monocytes # (Manual) PT INR APTT POC ABG pH POC ABG pCO2 POC ABG pO2 Sodium Potassium Chloride Carbon Dioxide BUN Creatinine Glucose POC Glucose 150 H 148 H Hemoglobin A1c Lactic Acid 2.20 H* Calcium Phosphorus Magnesium Total Creatine Kinase Troponin T C-Reactive Protein NT-Pro-B Natriuret Pep Total Protein Albumin LDL Cholesterol Direct HDL Cholesterol Urine WBC (Auto) 10/12/17 10/12/17 10/12/17 13:40 16:34 17:23 WBC RBC Hgb MCH MCHC RDW Plt Count Eos % (Auto) Seg Neuts % (Manual) Lymphocytes % (Manual) Monocytes % (Manual) Seg Neutrophils # Man Lymphocytes # (Manual) Monocytes # (Manual) PT INR APTT POC ABG pH POC ABG pCO2 POC ABG pO2 Sodium Potassium Chloride Carbon Dioxide BUN Creatinine Glucose POC Glucose 182 H Hemoglobin A1c Lactic Acid 2.10 H* Calcium Phosphorus Magnesium Total Creatine Kinase Troponin T C-Reactive Protein 25.60 H NT-Pro-B Natriuret Pep Total Protein Albumin LDL Cholesterol Direct HDL Cholesterol Urine WBC (Auto) 10/12/17 10/12/17 10/12/17 18:35 20:38 21:44 WBC RBC Hgb MCH MCHC RDW Plt Count Eos % (Auto) Seg Neuts % (Manual) Lymphocytes % (Manual) Monocytes % (Manual) Seg Neutrophils # Man Lymphocytes # (Manual) Monocytes # (Manual) PT INR APTT POC ABG pH 7.531 H POC ABG pCO2 27.0 L POC ABG pO2 78 L Sodium Potassium Chloride Carbon Dioxide BUN Creatinine Glucose POC Glucose 191 H Hemoglobin A1c Lactic Acid 2.70 H* Calcium Phosphorus Magnesium Total Creatine Kinase Troponin T C-Reactive Protein NT-Pro-B Natriuret Pep Total Protein Albumin LDL Cholesterol Direct HDL Cholesterol Urine WBC (Auto) 10/12/17 10/13/17 10/13/17 22:35 04:00 04:00 WBC RBC Hgb MCH MCHC 35 H RDW 12.6 L Plt Count Eos % (Auto) 5.8 H Seg Neuts % (Manual) Lymphocytes % (Manual) Monocytes % (Manual) Seg Neutrophils # Man Lymphocytes # (Manual) Monocytes # (Manual) PT 24.1 H INR 2.01 H APTT POC ABG pH POC ABG pCO2 POC ABG pO2 Sodium Potassium Chloride Carbon Dioxide BUN Creatinine Glucose POC Glucose Hemoglobin A1c Lactic Acid 3.00 H* Calcium Phosphorus Magnesium Total Creatine Kinase Troponin T C-Reactive Protein NT-Pro-B Natriuret Pep Total Protein Albumin LDL Cholesterol Direct HDL Cholesterol Urine WBC (Auto) 10/13/17 10/13/17 10/13/17 04:00 04:00 05:27 WBC RBC Hgb MCH MCHC RDW Plt Count Eos % (Auto) Seg Neuts % (Manual) Lymphocytes % (Manual) Monocytes % (Manual) Seg Neutrophils # Man Lymphocytes # (Manual) Monocytes # (Manual) PT INR APTT POC ABG pH POC ABG pCO2 POC ABG pO2 Sodium Potassium Chloride Carbon Dioxide BUN Creatinine Glucose POC Glucose 251 H Hemoglobin A1c Lactic Acid Calcium 8.3 L D Phosphorus Magnesium 1.60 L Total Creatine Kinase Troponin T C-Reactive Protein NT-Pro-B Natriuret Pep Total Protein Albumin LDL Cholesterol Direct HDL Cholesterol Urine WBC (Auto) 10/13/17 10/13/17 10/13/17 10:52 13:08 13:46 WBC RBC Hgb MCH MCHC RDW Plt Count Eos % (Auto) Seg Neuts % (Manual) Lymphocytes % (Manual) Monocytes % (Manual) Seg Neutrophils # Man Lymphocytes # (Manual) Monocytes # (Manual) PT INR APTT POC ABG pH POC ABG pCO2 POC ABG pO2 Sodium Potassium Chloride Carbon Dioxide 20 L BUN 112 H Creatinine 2.7 H D Glucose 252 H POC Glucose 282 H Hemoglobin A1c Lactic Acid 2.10 H* Calcium 11.2 H D Phosphorus Magnesium Total Creatine Kinase Troponin T C-Reactive Protein NT-Pro-B Natriuret Pep Total Protein Albumin LDL Cholesterol Direct HDL Cholesterol Urine WBC (Auto) 10/13/17 10/14/17 10/14/17 19:51 00:27 05:24 WBC RBC Hgb MCH MCHC RDW Plt Count Eos % (Auto) Seg Neuts % (Manual) Lymphocytes % (Manual) Monocytes % (Manual) Seg Neutrophils # Man Lymphocytes # (Manual) Monocytes # (Manual) PT INR APTT POC ABG pH POC ABG pCO2 POC ABG pO2 Sodium Potassium Chloride Carbon Dioxide BUN Creatinine Glucose POC Glucose 284 H 365 H 335 H Hemoglobin A1c Lactic Acid Calcium Phosphorus Magnesium Total Creatine Kinase Troponin T C-Reactive Protein NT-Pro-B Natriuret Pep Total Protein Albumin LDL Cholesterol Direct HDL Cholesterol Urine WBC (Auto) 10/14/17 10/14/17 10/14/17 05:45 05:45 05:45 WBC 24.1 H RBC Hgb MCH 27 L MCHC RDW 17.1 H Plt Count 119 L Eos % (Auto) Seg Neuts % (Manual) 77.0 H Lymphocytes % (Manual) 2.0 L Monocytes % (Manual) Seg Neutrophils # Man 18.6 H Lymphocytes # (Manual) 0.5 L Monocytes # (Manual) 1.0 H PT 15.5 H INR 1.17 H APTT POC ABG pH POC ABG pCO2 POC ABG pO2 Sodium Potassium Chloride Carbon Dioxide BUN Creatinine Glucose POC Glucose Hemoglobin A1c Lactic Acid Calcium Phosphorus 6.30 H D Magnesium Total Creatine Kinase Troponin T C-Reactive Protein NT-Pro-B Natriuret Pep Total Protein Albumin LDL Cholesterol Direct HDL Cholesterol Urine WBC (Auto) 10/14/17 10/14/17 10/14/17 05:45 07:26 11:42 WBC RBC Hgb MCH MCHC RDW Plt Count Eos % (Auto) Seg Neuts % (Manual) Lymphocytes % (Manual) Monocytes % (Manual) Seg Neutrophils # Man Lymphocytes # (Manual) Monocytes # (Manual) PT INR APTT POC ABG pH POC ABG pCO2 POC ABG pO2 Sodium Potassium Chloride Carbon Dioxide 19 L BUN 138 H Creatinine 3.1 H Glucose 396 H POC Glucose 318 H 378 H Hemoglobin A1c Lactic Acid Calcium 10.5 H Phosphorus Magnesium 2.80 H Total Creatine Kinase Troponin T C-Reactive Protein NT-Pro-B Natriuret Pep Total Protein Albumin LDL Cholesterol Direct HDL Cholesterol Urine WBC (Auto) 10/14/17 10/14/17 10/14/17 16:30 21:26 21:29 WBC RBC Hgb MCH MCHC RDW Plt Count Eos % (Auto) Seg Neuts % (Manual) Lymphocytes % (Manual) Monocytes % (Manual) Seg Neutrophils # Man Lymphocytes # (Manual) Monocytes # (Manual) PT INR APTT POC ABG pH POC ABG pCO2 POC ABG pO2 Sodium Potassium Chloride Carbon Dioxide BUN Creatinine Glucose POC Glucose 381 H 414 H 458 H Hemoglobin A1c Lactic Acid Calcium Phosphorus Magnesium Total Creatine Kinase Troponin T C-Reactive Protein NT-Pro-B Natriuret Pep Total Protein Albumin LDL Cholesterol Direct HDL Cholesterol Urine WBC (Auto) 10/14/17 10/15/17 10/15/17 23:50 05:30 05:30 WBC RBC Hgb MCH MCHC RDW Plt Count Eos % (Auto) Seg Neuts % (Manual) Lymphocytes % (Manual) Monocytes % (Manual) Seg Neutrophils # Man Lymphocytes # (Manual) Monocytes # (Manual) PT INR APTT POC ABG pH POC ABG pCO2 POC ABG pO2 Sodium Potassium Chloride 110.7 H Carbon Dioxide 16 L BUN 140 H Creatinine 2.7 H Glucose 404 H POC Glucose 411 H Hemoglobin A1c Lactic Acid Calcium Phosphorus 5.20 H Magnesium Total Creatine Kinase Troponin T C-Reactive Protein 9.80 H NT-Pro-B Natriuret Pep Total Protein Albumin LDL Cholesterol Direct HDL Cholesterol Urine WBC (Auto) 10/15/17 10/15/17 10/15/17 12:56 14:43 14:43 WBC 27.9 H RBC Hgb 9.8 L MCH 27 L MCHC RDW 17.4 H Plt Count Eos % (Auto) Seg Neuts % (Manual) 98.0 H Lymphocytes % (Manual) 1.0 L Monocytes % (Manual) Seg Neutrophils # Man 27.3 H Lymphocytes # (Manual) 0.3 L Monocytes # (Manual) PT 19.0 H INR 1.50 H APTT POC ABG pH POC ABG pCO2 POC ABG pO2 Sodium Potassium Chloride Carbon Dioxide BUN Creatinine Glucose POC Glucose > 500 H Hemoglobin A1c Lactic Acid Calcium Phosphorus Magnesium Total Creatine Kinase Troponin T C-Reactive Protein NT-Pro-B Natriuret Pep Total Protein Albumin LDL Cholesterol Direct HDL Cholesterol Urine WBC (Auto) 10/15/17 10/15/17 10/15/17 14:43 18:55 19:40 WBC RBC Hgb MCH MCHC RDW Plt Count Eos % (Auto) Seg Neuts % (Manual) Lymphocytes % (Manual) Monocytes % (Manual) Seg Neutrophils # Man Lymphocytes # (Manual) Monocytes # (Manual) PT INR APTT POC ABG pH POC ABG pCO2 POC ABG pO2 Sodium Potassium Chloride Carbon Dioxide 18 L 17 L BUN 172 H 178 H Creatinine 3.2 H 3.2 H Glucose 596 H* 599 H* POC Glucose 462 H Hemoglobin A1c Lactic Acid Calcium 10.6 H D 10.7 H Phosphorus Magnesium Total Creatine Kinase Troponin T C-Reactive Protein NT-Pro-B Natriuret Pep Total Protein Albumin LDL Cholesterol Direct HDL Cholesterol Urine WBC (Auto) 10/15/17 10/16/17 10/16/17 23:52 05:00 05:00 WBC 24.5 H RBC 3.53 L Hgb 9.5 L MCH 27 L MCHC RDW 17.0 H Plt Count Eos % (Auto) Seg Neuts % (Manual) 94.5 H Lymphocytes % (Manual) 3.5 L Monocytes % (Manual) Seg Neutrophils # Man 23.2 H Lymphocytes # (Manual) 0.9 L Monocytes # (Manual) PT INR APTT POC ABG pH POC ABG pCO2 POC ABG pO2 Sodium Potassium Chloride 109.2 H Carbon Dioxide 19 L BUN 183 H Creatinine 3.3 H Glucose 454 H POC Glucose 480 H Hemoglobin A1c Lactic Acid Calcium 10.6 H Phosphorus 5.60 H Magnesium Total Creatine Kinase Troponin T C-Reactive Protein NT-Pro-B Natriuret Pep Total Protein Albumin LDL Cholesterol Direct HDL Cholesterol Urine WBC (Auto) 10/16/17 10/16/17 05:00 06:45 WBC RBC Hgb MCH MCHC RDW Plt Count Eos % (Auto) Seg Neuts % (Manual) Lymphocytes % (Manual) Monocytes % (Manual) Seg Neutrophils # Man Lymphocytes # (Manual) Monocytes # (Manual) PT 23.4 H INR 1.94 H APTT POC ABG pH POC ABG pCO2 POC ABG pO2 Sodium Potassium Chloride Carbon Dioxide BUN Creatinine Glucose POC Glucose 404 H Hemoglobin A1c Lactic Acid Calcium Phosphorus Magnesium Total Creatine Kinase Troponin T C-Reactive Protein NT-Pro-B Natriuret Pep Total Protein Albumin LDL Cholesterol Direct HDL Cholesterol Urine WBC (Auto) Allied health notes reviewed: nursing
--- NOTE | 2017-10-16 12:46 | Discharge Summary ---
Providers - Providers Date of Admission: 10/07/17 14:38 Date of discharge: 10/16/17 Attending physician: LALITHA FREIRE 10/07/17 21:40 Consult to Physician [CONS] Routine Comment: Consulting Provider: JODI COLEMAN Physician Instructions: Reason For Exam: CHF exacerbation 10/08/17 04:17 Consult to Wound/ET Nurse [CONS] Routine Reason For Exam: wound eval 10/08/17 07:38 Consult to Physician [CONS] Routine Comment: Consulting Provider: RENEE JACOBSEN Physician Instructions: Reason For Exam: CKD 10/09/17 13:07 Speech Therapy Evaluation and Treat [CONS] Routine Reason For Exam: dysphasia. 10/10/17 11:56 Consult to Physician [CONS] Routine Comment: Consulting Provider: QUINCY MCKNIGHT Physician Instructions: Reason For Exam: AMS, Cardiac arrythmia, CHF 10/11/17 09:28 Consult to Physician [CONS] Routine Comment: Consulting Provider: MICHAEL SEAMAN Physician Instructions: Acute renal failure probably secondary to lasix Reason For Exam: acute renal failure 10/12/17 09:50 Consult to Physician [CONS] Routine Comment: Consulting Provider: TANMAY STARK Physician Instructions: Reason For Exam: vascath placement 10/12/17 11:56 Consult to Dietitian/Nutrition [CONS] Routine Physician Instructions: Reason For Exam: Tube Feeding Reason for Consult: Write/Manage Tube Feeding 10/12/17 18:23 Consult to Physician [CONS] Routine Comment: Consulting Provider: DREW MOORE Physician Instructions: Reason For Exam: bacteremia; Sepsis Syndrome Primary care physician: ARUN HAMMOND Hospitalization Reason for admission: septic shock, dm Condition: Serious Pertinent studies: CT head, Renal US, Disposition: [id number]ICE ([facility]) Time spent for discharge: 36 mins Core Measure Documentation - Palliative Care Palliative Care/ Comfort Measures: Hospice Care Exam - Constitutional Vitals: Temp Pulse Resp BP Pulse Ox 97.0 F L 64 38 H 92/42 78 L 10/16/17 04:00 10/16/17 08:01 10/16/17 08:01 10/16/17 08:01 10/16/17 08:01 General appearance: Present: no acute distress, well-nourished, other - EENT Eyes: Present: PERRL ENT: hearing intact, clear oral mucosa - Neck Neck: Present: supple, normal ROM - Respiratory Respiratory effort: normal Respiratory: bilateral: CTA - Cardiovascular Heart Sounds: Present: S1 & S2. Absent: rub, click - Extremities Extremities: pulses symmetrical, No edema Peripheral Pulses: within normal limits - Abdominal General gastrointestinal: Present: soft, non-tender, non-distended, normal bowel sounds - Integumentary Integumentary: Present: clear, warm, dry - Musculoskeletal Musculoskeletal: strength equal bilaterally - Psychiatric Psychiatric: appropriate mood/affect, other (lethergic) - Neurologic Neurologic: CNII-XII intact, moves all extremities Plan Activity: other (non ambulatory) Weight Bearing Status: Non-Weight Bearing Diet: diabetic Follow up with: ARUN HAMMOND MD [Primary Care Provider] - 3-5 Days Forms: Warfarin Discharge Instruction
[2017-10-16 15:02] VITALS: BP 104/43
== END 2017-10-16 13:30 | disposition hospice, inpatient (51) | DRG 871 ==
LOC: ED 11:03 → 4A 14:38 → CC1 10-10 15:06
PROVIDERS: ADMIT Internal Medicine; ATTEND Family Medicine
PROC: 4A033R1 Measurement of Arterial Saturation, Peripheral, Percutaneous Approach (ICD-10-PCS; 2017-10-07)
PROC: 06HM33Z Insertion of Infusion Device into Right Femoral Vein, Percutaneous Approach (ICD-10-PCS; principal; 2017-10-12)
PROC: B54BZZA Ultrasonography of Right Lower Extremity Veins, Guidance (ICD-10-PCS; 2017-10-12)
PROC: 4B02XTZ Measurement of Cardiac Defibrillator, External Approach (ICD-10-PCS; 2017-10-12)
PROC: 5A09357 Assistance with Respiratory Ventilation, Less than 24 Consecutive Hours, Continuous Positive Airway Pressure (ICD-10-PCS; 2017-10-12)
PROC: 5A1D70Z Performance of Urinary Filtration, Intermittent, Less than 6 Hours Per Day (ICD-10-PCS; 2017-10-12)
PROC: 5A09357 Assistance with Respiratory Ventilation, Less than 24 Consecutive Hours, Continuous Positive Airway Pressure (ICD-10-PCS; 2017-10-13)
PROC: 5A09357 Assistance with Respiratory Ventilation, Less than 24 Consecutive Hours, Continuous Positive Airway Pressure (ICD-10-PCS; 2017-10-14)
PROC: 5A09357 Assistance with Respiratory Ventilation, Less than 24 Consecutive Hours, Continuous Positive Airway Pressure (ICD-10-PCS; 2017-10-15)
PROC: 5A09357 Assistance with Respiratory Ventilation, Less than 24 Consecutive Hours, Continuous Positive Airway Pressure (ICD-10-PCS; 2017-10-16)
DX: A41.9 Sepsis, unspecified organism (principal); I50.23 Acute on chronic systolic (congestive) heart failure; G93.40 Encephalopathy, unspecified; R65.21 Severe sepsis with septic shock; J96.01 Acute respiratory failure with hypoxia; J18.9 Pneumonia, unspecified organism; I42.0 Dilated cardiomyopathy; E87.2 Acidosis; N17.9 Acute kidney failure, unspecified; I48.2 Chronic atrial fibrillation; E83.52 Hypercalcemia; D69.6 Thrombocytopenia, unspecified; I27.20 Pulmonary hypertension, unspecified; Z66 Do not resuscitate; E11.649 Type 2 diabetes mellitus with hypoglycemia without coma; N28.1 Cyst of kidney, acquired; E87.5 Hyperkalemia; T45.515A Adverse effect of anticoagulants, initial encounter; I11.0 Hypertensive heart disease with heart failure; K21.9 Gastro-esophageal reflux disease without esophagitis; Z95.810 Presence of automatic (implantable) cardiac defibrillator; Z82.49 Family history of ischemic heart disease and other diseases of the circulatory system; Z79.82 Long term (current) use of aspirin; Z79.01 Long term (current) use of anticoagulants; Z79.899 Other long term (current) drug therapy; Z79.4 Long term (current) use of insulin; Z88.5 Allergy status to narcotic agent; Y92.89 Other specified places as the place of occurrence of the external cause
CPT/HCPCS: 36415; 36600; 70450; 71045; 74018; 76770; 80048; 80053; 80061; 80074; 80162; 81001; 82140; 82550; 82553; 82803; 82962; 83036; 83735; 83880; 84100; 84443; 84484; 85007; 85025; 85610; 85730; 86140; 87040; 87086; 93005; 93010; 93306; 94660; 94760; 96361; 96374; 96375; 99285; A9270-GY; J0295; J0696; J0878; J1815; J1940; J1956; J2260; J2270; J2930; J3370; J3430; J3475; J7030; J7040; J7050